=== PATIENT | female | born 1955 | race Caucasian/White ===

== ENCOUNTER 2019-06-10 10:33 | Outpatient (CLI) | payer BC, SELFPAY ==
--- NOTE | ~2019-06-10 | MM_ITS ---
EXAMINATION: MM screening harika BI w inge HISTORY: Screening mammogram TECHNIQUE: Craniocaudal and mediolateral oblique 3-D tomosynthesis images were obtained and synthetic 2-D images were generated. CAD analysis was submitted and interpreted. COMPARISON: 05/17/2018, 03/20/2017, 02/18/2016 bilateral digital screening mammogram examinations BREAST PARENCHYMAL COMPOSITION: The breasts are heterogeneously dense, which may obscure small masses ............... FINDINGS: There is no evidence of suspicious mass, calcification, or architectural distortion to sugg est malignancy in either breast. There has been no suspicious interval change. IMPRESSION: 1. No mammographic evidence of malignancy. 2. Recommend routine screening mammography in one year. BI-RADS Category 1: Negative Reviewed, dictated and finalized at location A.
== END 2019-06-10 10:34 | disposition home or self-care (01) ==
PROVIDERS: PCP Family Medicine; Visit Provider Family Medicine
DX: Z12.31 Encounter for screening mammogram for malignant neoplasm of breast (principal)
CPT/HCPCS: 77063; 77067

== ENCOUNTER → 2019-11-11 13:27 | Outpatient (CLI) | payer BC, SELFPAY ==
--- NOTE | ~2019-11-11 | XR_ITS ---
XR chest 2V INDICATION: Cough. TECHNIQUE: 2 view chest. FINDINGS: Comparison to 05/06/2018 There is mild bilateral interstitial prominence and peribronchial cuffing. There is no focal consoli dation, pleural effusion, or pneumothorax. The cardiomediastinal silhouette is normal.] IMPRESSION: 1. Findings most consistent with bronchiolitis versus an atypical or viral pneumonia. Reviewed, dictated and finalized at location A. IMPRESSION: 1. Findings most consistent with bronchiolitis versus an atypical or viral pne [facility].
== END ==
PROVIDERS: PCP Family Medicine; Visit Provider Physician Assistant
DX: R05 Cough (principal); R91.8 Other nonspecific abnormal finding of lung field
CPT/HCPCS: 71046

== ENCOUNTER → 2019-12-09 14:52 | Outpatient (CLI) | payer BC, SELFPAY ==
--- NOTE | ~2019-12-09 | XR_ITS ---
EXAMINATION: XR chest 2V 12/09/2019 16:08 INDICATION: Viral pneumonia. Cough and wheezing. PROCEDURE: 2 view chest COMPARISON: 11/11/2019 FINDINGS: The lungs are clear. The cardiomediastinal silhouette is within normal limits. There are no pleural effusions. There is no pneumothorax suspected. IMPRESSION: 1: NO ACUTE CARDIOPULMONARY DISEASE. Reviewed, dictated and finalized at location B.
== END ==
PROVIDERS: PCP Family Medicine; Visit Provider Physician Assistant
DX: J12.9 Viral pneumonia, unspecified (principal)
CPT/HCPCS: 71046

== ENCOUNTER → 2020-06-30 14:02 | Outpatient (CLI) | payer BC, SELFPAY ==
--- NOTE | ~2020-06-30 | MM_ITS ---
EXAMINATION: MM screening harika BI w inge HISTORY: Screening mammogram, family history of breast cancer in her mother and sister. TECHNIQUE: Craniocaudal and mediolateral oblique 3-D tomosynthesis images were obtained and synthetic 2-D images were generated. CAD analysis was submitted and interpreted. COMPARISON: 06/10/2019, 05/17/2018, 03/20/2017 BREAST PARENCHYMAL COMPOSITION: The breasts are heterogeneously dense, which may obscure small masses . FINDINGS: There is no evidence of suspicious mass, calcification, or architectural distortion to sugg est malignancy in either breast. There has been no suspicious interval change. IMPRESSION: 1. No mammographic evidence of malignancy. 2. Recommend routine screening mammography in one year. BI-RADS Category 1: Negative Reviewed, dictated and finalized at location A.
== END ==
PROVIDERS: PCP Family Medicine; Visit Provider Family Medicine
DX: Z12.31 Encounter for screening mammogram for malignant neoplasm of breast (principal)
CPT/HCPCS: 77063; 77067

== ENCOUNTER 2020-07-08 10:13 | Outpatient (CLI) | payer BC, SELFPAY ==
--- NOTE | 2020-07-11 14:02 | WPDPFTINT ---
PFT Procedure Performed PFT Procedure Performed Plethysmography (Lung Vol) Diffusing Cap (DLCO) Flow Vol Loop Spirometry w/o Bronchodil PFT Interpretation This PFT met all criteria for ATS standards and reproducibility FEV/FVC 78% FEV1 87% FVC 87% TLC 86% RV 73% RV/TLC 33 per DLCO 77% when adjusted for alveolar volume but not adjusted for hemoglobin Flow volume loops showed Impression: Other than a mildly decreased diffusion capacity this is a fairly normal pulmonary function test. Clinical correlation is advised.
== END 2020-07-08 10:14 | disposition home or self-care (01) ==
PROVIDERS: PCP Family Medicine; Visit Provider Physician Assistant
DX: R06.02 Shortness of breath (principal); R94.2 Abnormal results of pulmonary function studies
CPT/HCPCS: 94375; 94726; 94729

== ENCOUNTER → 2021-11-14 11:55 | Outpatient (CLI) | payer BC, SELFPAY ==
--- NOTE | ~2021-11-14 | DEXA_ITS ---
Bone Density Report Name: ISSA ZHONG Age: 66 Sex: Female Ethnicity: White Date of : 1955 Indication: osteopenia; parental hip fracture; prior fracture;postmenopausal Referring Provider: Mayuri, Niesha Lauren Study: Bone densitometry was performed. Exam Date: November 14, 2021 Accession number: [id number] Bone Density: Region BMD T-score Z-score Classification AP Spine (L1-L4) 0.847 -1.8 -0.1 Osteopenia Femoral Neck (Left) 0.705 -1.3 0.2 Osteopenia Total Hip (Left) 0.978 0.3 1.5 Normal Femoral Neck (Right) 0.794 -0.5 1.0 Normal Total Hip (Right) 1.023 0.7 1.8 Normal Total Hip Mean 1.001 0.5 1.7 Normal World Health Organization criteria for BMD impression classify patients as: Normal (T-score at or above -1.0), Osteopenia (T-score between -1.0 and -2.5), or Osteoporosis (T-score at or below -2.5). 10-year Fracture Risk(1): Major Osteoporotic Fracture 26% Hip Fracture 1.2% Reported Risk Factors: [place] (), Neck BMD=0.705, BMI=29.9, previous fracture, parental fracture (1) FRAX(R) Version 3.08. Fracture probability calculated for an untreated patient. Fracture probability may be lower if the patient has received treatment. Previous Exams: Region Exam Age BMD T-score BMD Change BMD Change Date g/cm2 vs Baseline vs Previous AP Spine(L1-L4) 11/14/2021 66 0.847 -1.8 -0.161 0.002 03/06/2019 63 0.844 -1.8 -0.164 -0.062 01/14/2014 58 0.906 -1.3 -0.102 -0.102 05/05/2003 47 1.008 -0.4 Total Hip(Left) 11/14/2021 66 0.978 0.3 -0.025 -0.049 03/06/2019 63 1.027 0.7 0.024 0.038* 01/14/2014 58 0.989 0.4 -0.014 -0.014 05/05/2003 47 1.003 0.5 Total Hip(Right) 11/14/2021 66 1.023 0.7 0.025 0.023 03/06/2019 63 1.000 0.5 0.002 0.014 01/14/2014 58 0.986 0.4 -0.012 -0.012 05/05/2003 47 0.998 0.5 *Denotes significance at 95% confidence level, LSC for AP Spine = 0.022 g/cm2, LSC for Total Hip = 0.027 g/cm2 Clinical Information Provided by Patient: Has had a low trauma fracture Parent has had a hip fracture Has used the following medications: Vitamin D, Calcium, MTV Patient maximum height was 66.0 Menopause Age: 50 No regular weight bearing exercise Drinks caffeinated beverages Onset of menses at age 15 Number of children 0
--- NOTE | ~2021-11-14 | MM_ITS ---
EXAMINATION: MM screening [facility] BI w inge HISTORY: Screening mammogram TECHNIQUE: Craniocaudal and mediolateral oblique 3-D tomosynthesis images were obtained and synthetic 2-D images were generated. CAD analysis was submitted and interpreted. COMPARISON: 06/30/2020, 06/10/2019, 05/17/2018 BREAST PARENCHYMAL COMPOSITION: The breasts are heterogeneously dense, which may obscure small masses . FINDINGS: There is no evidence of suspicious mass, calcification, or architectural distortion to sugg est malignancy in either breast. There has been no suspicious interval change. IMPRESSION: 1. No mammographic evidence of malignancy. 2. Recommend routine screening mammography in one year. BI-RADS Category 1: Negative Reviewed, dictated and finalized at location A.
--- NOTE | ~2021-11-14 | US_ITS ---
EXAMINATION: US carotid duplex BI DATE: 11/14/2021 12:31 INDICATION: Carotid stenosis TECHNIQUE: Grayscale, color Doppler, and pulsed Doppler images of the cervical carotid arteries were obtained. The degree of vessel stenosis is placed in one of the following categories: normal, <50%, 5 0-69%, >=70% but less than near-occlusion, near-occlusion, or total occlusion. Note that percent sten osis relative to normal distal artery lumen diameter is indirectly measured from velocity measurement s as described by Scott, et al. Radiology 2003; 229:340-346. Notes: Normal: Peak systolic velocity <125 centimeters/sec and no plaque <50%. Peak systolic velocity <125 ( EDV <40; ICA/CCA PSV ratio <2.0; used these factors only a tandem lesions or low cardiac output or co ntralateral disease) 50-69 %: PSV 125-230 (EDV 40-100; ratio 2-4) >= 70% but less than near occlusion: PSV greater than 230 (EDV > 100; ratio> 4.0) Near Occlusion: PSV that is variable; markedly narrowed lumen Occlusion: Absent flow on color/spectral Doppler and no lumen on treadwell scale. COMPARISON: None. FINDINGS: RIGHT: The right common carotid artery (CCA) peak systolic velocity (PSV) is 70 cm/s. The right internal car otid artery (ICA) PSV is 81 cm/s. The right ICA end-diastolic velocity (EDV) is 23 cm/s. The right IC A/CCA PSV ratio is 1.2. The external carotid artery (ECA) PSV is 85 cm/s. There is antegrade flow in the right vertebral artery. LEFT: The left CCA PSV is 78 cm/s. The left ICA PSV is 79 cm/s. The left ICA EDV is 27 cm/s. The left ICA/C CA PSV ratio is 1.0. The ECA PSV is 79 cm/s. There is antegrade flow in the left vertebral artery. IMPRESSION: 1. Less than 50% stenosis in the right internal carotid artery by sonographic criteria. 2. Less than 50% stenosis in the left internal carotid artery by sonographic criteria. Reviewed, dictated and finalized at location B. IMPRESSION: 1. Less than 50% stenosis in the right internal carotid artery by sonographic chris amezquita. 2. Less than 50% stenosis in the left internal carotid artery by sonographic luz kelly.
== END ==
PROVIDERS: PCP Family Medicine; Visit Provider Nurse Practitioner Family
DX: Z12.31 Encounter for screening mammogram for malignant neoplasm of breast (principal); Z13.820 Encounter for screening for osteoporosis; M85.88 Other specified disorders of bone density and structure, other site; M85.852 Other specified disorders of bone density and structure, left thigh; I65.23 Occlusion and stenosis of bilateral carotid arteries
CPT/HCPCS: 77063; 77067; 77080; 93880

== ENCOUNTER 2022-02-07 13:25 | Emergency (ER) | payer BC, SELFPAY ==
[2022-02-07 13:48] VITALS: BP 94/56; PULSE 92; RESP 16; TEMP 37.3; O2SAT 100
--- NOTE | 2022-02-07 14:37 | ED.URI ---
HPI - URI/Sore Throat General Chief Complaint: Upper Respiratory Infection Stated Complaint: Congestion/Cough/Sore Throat Time Seen by Provider: 02/07/22 14:40 Source: patient and RN notes reviewed Mode of arrival: ambulatory Limitations: no limitations History of Present Illness HPI Narrative: 66-year-old female presents with concern for cough, body aches, nasal congestion, sore throat that started 2 days ago. She has taken [id number] medications without relief of her symptoms. MD elicited complaint: cough and sore throat Related Data Home Medications Medication Instructions Recorded Confirmed vitamin B complex-vitamin B12 drp sublingual 05/25/20 05/25/20 1,200 mcg/mL sublingual drops sertraline 100 mg tablet 100 mg PO DAILY 11/15/21 tirzepatide 2.5 mg/0.5 mL 2.5 mg subcut WEEKLY 11/15/21 subcutaneous pen injector ([place]ineshro) Allergies Allergy/AdvReac Type Severity Reaction Status Date / Time No Known Allergies Allergy Mild Verified 11/15/21 14:02 Review of Systems Review of Systems: CONSTITUTIONAL: Reports malaise, chills, sweats EYES: Denies visual changes, redness, or discharge. ENT: Reports rhinorrhea, congestion, sore throat. Denies sinus pain, otalgia CARDIOVASCULAR: Denies chest pain, palpitations, or edema. RESPIRATORY: Reports cough. Denies dyspnea. GASTROINTESTINAL: Denies abdominal pain, nausea, vomiting, diarrhea SKIN: Denies rash or itching. MUSCULOSKELETAL: Reports myalgia. NEUROLOGIC: Reports headache. All systems reviewed & are unremarkable except as noted in HPI and below PMFSH Past Medical History Medical History (Updated 02/07/22 @ 14:48 by Jill Gallagher NP) Anxiety Depression HLD (hyperlipidemia) Normal cardiac stress test (~2015) Prediabetes Surgical History Surgical History (Updated 11/15/21 @ 14:07 by Yumiko Franks MA) H/O knee surgery (~1989) H/O neck surgery History of surgery on lower extremity Family History Family History (Updated 11/15/21 @ 14:09 by Yumiko Franks MA) Mother High cholesterol Heart disease Breast cancer Bladder cancer Father High cholesterol Heart disease Malignant neoplasm of prostate Sibling Acute myocardial infarction Social History Social History (Updated 11/15/21 @ 14:09 by ANIL Pelayo Smoking status: Never smoker Second hand tobacco smoke exposure: Yes Alcohol intake: current Alcohol use details: socially Substance use: never Substance use type: does not use Gender identity (if verbalized by the patient): Female Comments At time of signature, agree with nursing past medical, surgical, social and family history. There is no relevant family history pertinent to the presenting complaint Exam Narrative: GENERAL: Nontoxic-appearing and in no acute distress. HEAD: Normocephalic EYES: PERRLA, conjunctivae clear ENT: Nares clear, turbinates edematous and erythematous, clear discharge. Mucous membranes moist. TM pearly treadwell with dull light reflex bilaterally; no tragal tenderness. Oropharynx not erythematous without lesions. Tonsils not enlarged and without exudate, no drooling, no hoarseness, no trismus, uvula midline. NECK: Supple. No lymphadenopathy CHEST: Clear to auscultation, breath sounds equal. No wheezing, rhonchi, rales, or stridor. No respiratory distress, speaks in full sentences. Cough noted HEART: Regular rate and rhythm. No murmur heard. SKIN: Warm, dry, no rash. NEURO: Alert and oriented x3. PSYCH: Normal mood and affect Course Course Emergency Course: Patient is aware of diagnosis, understands and agrees to treatment plan. Anticipatory guidance given. Patient agrees to follow-up as directed and is aware of reasons to seek care at the emergency department. Portions of this record may have been created with voice recognition software Level of Care: Express Care Visit Vital Signs Vital signs: Vital Signs Temperature 99.2 F 02/07/22 13:4
== END 2022-02-07 15:03 | disposition home or self-care (01) ==
PROVIDERS: Emergency Provider Nurse Practitioner; PCP Nurse Practitioner Family
DX: U07.1 COVID-19 (principal); F32.A Depression, unspecified; F41.9 Anxiety disorder, unspecified; E78.5 Hyperlipidemia, unspecified
CPT/HCPCS: 87426; 99213; C9803; G0463

== ENCOUNTER → 2023-02-27 14:51 | Outpatient (CLI) | payer MEDICARE, OTHER, SELFPAY ==
--- NOTE | ~2023-02-27 | MM_ITS ---
EXAMINATION: MM screening harika BI w inge HISTORY: Screening mammogram, family history of breast cancer in her mother and sister. TECHNIQUE: Craniocaudal and mediolateral oblique 3-D tomosynthesis images were obtained and synthetic 2-D images were generated. CAD analysis was submitted and interpreted. COMPARISON: 11/14/2021, 07/08/2020, 06/10/2019 BREAST PARENCHYMAL COMPOSITION: The breasts are heterogeneously dense, which may obscure small masses . FINDINGS: No suspicious mass, calcification, or architectural distortion are identified in either myah ast to suggest malignancy. There has been no suspicious interval change. IMPRESSION: 1. No mammographic evidence of malignancy. 2. Recommend routine screening mammography in one year. BI-RADS Category 1: Negative Reviewed, dictated and finalized at location A. CIATE FINANCIAL REPRESENTATIVE
== END ==
PROVIDERS: PCP Nurse Practitioner Family; Visit Provider Nurse Practitioner Family
DX: Z12.31 Encounter for screening mammogram for malignant neoplasm of breast (principal)
CPT/HCPCS: 77063; 77067

== ENCOUNTER 2023-04-09 11:36 | Emergency (ER) | payer MEDICARE, OTHER, SELFPAY ==
[2023-04-09 11:42] VITALS: BP 155/82; PULSE 84; RESP 20; TEMP 36.1; O2SAT 97
--- NOTE | 2023-04-09 11:57 | ED.URI ---
HPI - URI/Sore Throat General Chief Complaint: Upper Respiratory Infection Stated Complaint: Shortness of Breath/Cough Source: patient Mode of arrival: ambulatory Limitations: no limitations History of Present Illness HPI Narrative: 67 yo female presented for complaint of cough and nasal congestion for about 10 days. Endorses chest feels tight with coughing. She endorses yearly bronchitis and states symptoms are similar. She has used her albuterol inhaler, nebulizers, incentive spirometer, and lkif-bzu-[id number] medications for symptoms. Denies shortness of breath, wheezing, chest pain, palpitations, nausea, vomiting, fevers or chills. Pt also states she struck her right eye on a table several months ago, has a healing scar, but has noticed white flashes at times to the outer aspect of the visual field. Endorses occasional blurred vision. Denies photosensitivity, eye pain, headache or dizziness. Related Data Home Medications Medication Instructions Recorded Confirmed vitamin B complex-vitamin B12 drp sublingual 05/25/20 05/25/20 1,200 mcg/mL sublingual drops tirzepatide 2.5 mg/0.5 mL 2.5 mg subcut WEEKLY 11/15/21 subcutaneous pen injector (Toluundineshro) Allergies Allergy/AdvReac Type Severity Reaction Status Date / Time No Known Allergies Allergy Mild Verified 02/28/22 12:04 Review of Systems Review of Systems: CONSTITUTIONAL: Denies body aches, fever, chills, or sweats. EYES: reports visual changes, Denies redness, or discharge. ENT:reports rhinorrhea, congestion, denies sore throat, or otalgia. CARDIOVASCULAR: Denies chest pain, palpitations, or edema. RESPIRATORY: Reports cough, sob, wheezing. SKIN: Denies rash, itching, or wounds. MUSCULOSKELETAL: Denies back pain, joint pain, or myalgia. NEUROLOGIC: Denies headache, numbness, tingling, or weakness. All systems reviewed & are unremarkable except as noted in HPI and below FOR[facility]LY [facility], [facility] Past Medical History Medical History Anxiety Depression HLD (hyperlipidemia) Normal cardiac stress test (~2015) Prediabetes Surgical History Surgical History H/O knee surgery (~1989) H/O neck surgery History of surgery on lower extremity Family History Family History Mother High cholesterol Heart disease Breast cancer Bladder cancer Father High cholesterol Heart disease Malignant neoplasm of prostate Sibling Acute myocardial infarction Other Cerebrovascular accident Diabetes mellitus Family history of alcoholism Family history of arthritis Family history of cardiovascular disease Family history of mental disorder Social History Social History Smoking status: Never smoker Second hand tobacco smoke exposure: Yes Alcohol intake: current Alcohol use details: socially Substance use: never Substance use type: does not use Living arrangements: with family Occupation/Education: retired Gender identity (if verbalized by the patient): Female Comments At time of signature, I have reviewed and agree with nursing past medical, surgical, social and family history unless otherwise noted. Please see nursing chart for further information. There is no relevant family history pertinent to the presenting complaint Exam Narrative: GENERAL: Well-appearing, in no acute distress. EYES: EOMI. PERRLA, No redness or drainage. Conjunctivae normal. ENT: Mucous membranes pink and moist. No rhinorrhea. TMs normal bilaterally. Throat normal. Uvula midline. NECK: Normal AROM. Supple. CHEST: No respiratory distress. Lungs clear to all diaz. HEART: Regular rate and rhythm. No murmur appreciated. SKIN: Warm, dry, no rash. Capillary refill normal. Normal skin turgor. NEURO: Alert and oriented x3. Gait
== END 2023-04-09 12:15 | disposition home or self-care (01) ==
PROVIDERS: Emergency Provider Nurse Practitioner Family
DX: J40 Bronchitis, not specified as acute or chronic (principal); H53.9 Unspecified visual disturbance; E78.5 Hyperlipidemia, unspecified; R73.03 Prediabetes
CPT/HCPCS: 99213; G0463

== ENCOUNTER 2023-11-28 11:27 | Outpatient (CLI) | payer MEDICARE, OTHER, SELFPAY ==
[2023-11-28 18:37] LABS: Basophils Percent Auto 0.7 % (0.2-1.2); Eosinophils Absolute Auto 0.1 K/mm3 (0-0.3); Eosinophils Percent Auto 0.9 % (0-4.4); Hematocrit 41.3 % (37.0-47.0); Hemoglobin 12.9 g/dL (12.0-15.0); Immature Granulocyte Absolute 0.02 K/mm3 (0.00-0.031); Immature Granulocyte Percent A 0.4 % (0-0.5); Lymphocytes Absolute Auto 1.68 K/mm3 (0.9-3.2); Lymphocytes Percent Auto 31.1 % (18.3-44.2); Mean Corpuscular HGB Conc 31.2 g/dl (32-36); Mean Corpuscular Hemoglobin 31.9 pg (26-34); Mean Corpuscular Volume 102.2 fl (80-100); Mean Platelet Volume 9.9 fl (7.4-10.4); Monocytes Absolute Auto 0.4 K/mm3 (0.1-0.6); Monocytes Percent Auto 7.2 % (2.6-8.5); Neutrophils Absolute Auto 3.2 K/mm3 (1.3-6.7); Neutrophils Percent Auto 59.7 % (45.5-73.1); Platelet Count Result 312 k/mm3 (150-375); Red Blood Count 4.04 M/mm3 (4.2-5.4); White Blood Count 5.4 K/mm3 (4.5-10.0)
[2023-11-28 20:09] LABS: Alanine Aminotransferase 27 U/L (6-35); Albumin Level 4.9 g/dL (3.5-5.1); Alkaline Phosphatase 91 U/L (38-126); Anion Gap 8 mmol/L (4-12); Aspartate Amino Transferase 68 U/L (14-36); Bilirubin,Total 0.6 mg/dL (0.2-1.3); Blood Urea Nitrogen 13 mg/dL (7-17); Calcium 9.4 mg/dL (8.4-10.2); Carbon Dioxide 27 mmol/L (22-30); Chloride 102 mmol/L (98-107); Cholesterol 136 mg/dL (0-200); Estimated Glomerular Filt Rate > 60; Glucose 96 mg/dL (65-110); HDL Direct 49 mg/dL; Potassium 4.8 mmol/L (3.4-5.0); Sodium 137 mmol/L (137-145); Triglycerides 121 mg/dL (<150)
[2023-11-28 20:19] LABS: LDL Cholesterol Direct 47 mg/dL
[2023-11-28 21:00] LABS: Hemoglobin A1C 5.2 % (<5.7)
== END 2023-11-28 11:28 | disposition home or self-care (01) ==
PROVIDERS: PCP Nurse Practitioner Adult Health; Visit Provider Nurse Practitioner Adult Health
DX: R73.03 Prediabetes (principal); E78.5 Hyperlipidemia, unspecified; Z51.81 Encounter for therapeutic drug level monitoring
CPT/HCPCS: 36415; 80053; 80061; 82607; 83036; 84443; 85025

== ENCOUNTER 2024-02-29 13:24 | Outpatient (CLI) | payer MEDICARE, SELFPAY ==
--- NOTE | ~2024-02-29 | DEXA_ITS ---
Bone Density Report Name: ISSA ZHONG Age: 68 Sex: Female Ethnicity: White Date of : 1955 Indication: postmenopausal; screening for osteoporosis; parental hip fracture; asthma or emphysema; Referring Provider: JOE SAWANT Study: Bone densitometry was performed. Exam Date: February 29, 2024 Accession number: [id number] Bone Density: Region BMD T-score Z-score Classification AP Spine(L1-L4) 0.883 -1.5 0.4 Osteopenia Femoral Neck (Left) 0.735 -1.0 0.6 Normal Total Hip (Left) 0.961 0.2 1.5 Normal Femoral Neck (Right) 0.758 -0.8 0.8 Normal Total Hip (Right) 0.980 0.3 1.6 Normal Femoral Neck Mean 0.747 -0.9 0.7 Normal Total Hip Mean 0.971 0.2 1.5 Normal World Health Organization criteria for BMD impression classify patients as: Normal (T-score at or above -1.0), Osteopenia (T-score between -1.0 and -2.5), or Osteoporosis (T-score at or below -2.5). Clinical Information Provided by Patient: Parent has had a hip fracture Has used the following medications: HRT (i.e. estrogen/hormone therapy), Vitamin D, Calcium Has the following medical conditions: Asthma or Emphysema Patient maximum height was 68 No regular weight bearing exercise Drinks caffeinated beverages Onset of menses at age 15 Number of children 0 Impression: The patient has low bone mass, based on the Total Spine T-score. The patient has risk factors, including: parental hip fracture. Discussion: BONE DENSITY IS LOW AT ONE OR MORE SKELETAL SITES. This patient's lowest T-score is low at one or more skeletal sites. It meets the World Health Organization's (WHO) criteria for ?low bone mass? (T-score between -1.0 and -2.5). The patient's 10-year risk of fracture as calculated by FRAX is less than the threshold where pharmacological therapy is recommended by the National Osteoporosis Foundation (NOF). However, all treatment decisions require clinical judgment and consideration of individual patient factors, including patient preferences, comorbidities, previous drug use, risk factors not captured in the FRAX model (e.g., frailty, falls, vitamin D deficiency, increased bone turnover, interval significant decline in bone density) and possible under or overestimation of fracture risk by FRAX. The patient should follow a healthful lifestyle (good nutrition with adequate calcium and vitamin D, and appropriate weight-bearing exercise). Follow-Up: Consider repeating this study in 2 to 3 years to reassess this patient's status, or sooner if there is some new clinical indication. Reported by: GABRIELLE on 02/29/2024 1:44:00 PM. Reviewed, dictated and finalized at location A. RODO
== END 2024-02-29 13:25 | disposition home or self-care (01) ==
LOC: CHSIMG 13:27
PROVIDERS: PCP Nurse Practitioner Adult Health; Visit Provider Nurse Practitioner Adult Health
DX: Z78.0 Asymptomatic menopausal state (principal); M85.88 Other specified disorders of bone density and structure, other site
CPT/HCPCS: 77080

== ENCOUNTER 2024-04-24 11:54 | Outpatient (CLI) | payer MEDICARE, SELFPAY ==
--- OUTSIDE RECORDS SUMMARY | 2024-04-24 13:23 | XMS_ITS | Clinical Summary ---
Author Organization [facility] [employer] Address [address] [place] [address] Care Team Providers Care Analyzer Sales Name Role Phone Unavailable Primary Care Provider Unavailabl e Source Comments [facility],non-owned Affiliates and Associated Physician Practices is amultiple site organization consisting of ambulatory clinics and hospital sitesin [place], [place], [place] and [place]. This disclosure is being madepursuant to the Care Everywhere program and may not contain all information available regarding this patient. Last updated 17.[facility] [employer] Allergies No known active allergies Medications * Be aware that medications may not be up to date on this document. Alwaysverify current medications with the patient. Medication Sig Dispensed Refills Start Date End Date Status meloxicam (MOBIC) 15 MG tablet Take 15 mg by mouth once daily Active sertraline (ZOLOFT) 100 MG tablet Take 100 mg by mouth once daily Active atorvastatin (LIPITOR) 10 MG tablet Take 10 mg by mouth at bedtime Active pantoprazole EC (PROTONIX) 40 MG tablet Take 40 mg by mouth once daily Active azithromycin (ZITHROMAX) 250 MG tablet Take 2 tabs today, then 1 tab daily for next 4 days 6 tablet 03/11/2019 Active albuterol HFA (PROVENTIL;VENTOLIN; PROAIR) 108 (90 Base) MCG/ACT inhaler Inhale 2 puffs by mouth every 4 hours as needed for Wheezing 1 Inhaler 03/11/2019 Active fluticasone propionate (FLONASE) 50 MCG/ACT nasal spray [place] 2 sprays into each nostril once daily 16 g 03/11/2019 Active methylPREDNISolone (MEDROL DOSEPAK) 4 MG tablet Take by mouth as directed 1 Each 03/11/2019 Active Social History Tobacco Use Types Packs/Day Years Used Date Smoking Tobacco: Former Cigarettes Q uit: 1998 Smokeless Tobacco: Never Sex and Gender Information Value Date Recorded Sex Assigned at Not on file Gender Identity Not on file Sexual Orientation Not on file Last Filed Vital Signs Vital Sign Reading Time Taken Comments Blood Pressure 116/78 03/11/2019 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 Pulse 102 03/11/2019 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 Temperature 36.9 C (98.4 F) 03/11/2019 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 Respiratory Rate 17 03/11/2019 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 Oxygen Saturation 97% 03/11/2019 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 Inhaled Oxygen Concentration - - Weight 86.6 kg (191 lb) 03/11/2019 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 Height 167.6 cm (5' 6 ) 03/11/2019 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 Body Mass Index 30.83 03/11/2019 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 Plan of Treatment Health Maintenance Due Date Last Done Comments BONE DENSITY TESTING 1955 COLOGUARD (AGES 45-75) - COL ON CA SCREENING 1955 COLON MONITORING 1955 COLONOSCOPY - COLON CA SCREENING 1955 CT COLONOGRAPHY - COLON CA SCREENING 1955 Colorectal Cancer Screening 1955 FIT - COLON CA SCREENING 1955 FLEX SIG - COLON CA SCREENING 1955 MAMMOGRAM 1955 HEPATITIS C SCREENING 11/11/1975 DTAP/TDAP/TD VACCINES (1 - Tdap) 1976 PNEUMOCOCCAL VACCINE 50+ (1 of 1 - PCV) 11/16/2007 ZOSTER VACCINE (1 of 2) 11/16/2007 SCREENING FOR DIABETES 03/11/2019 COVID-19 VACCINE ( - 2023-2 5 season) 2023 INFLUENZA VACCINE (#1) 2023 DEPRESSION SCREENING 02/20/2024 Respiratory Syncytial Virus (RSV) Vaccine Pt: or over 60 yrs (1 - 1-dose 75+ series) 2032 HEPATITIS B VACCINE Aged Out No longe r eligible based on patient's age to complete this topic HIB VACCINE Aged Out No longer eligi ble based on patient's age to complete this topic HPV VACCINE Aged Out No longer eligi ble based on patient's age to complete this topic MENINGOCOCCAL (Group B) VACCINE Aged Out No longer eligible based on patient's age to complete this topic MENINGOCOCCAL VACCINE Aged Out No lisa timo eligible based on patient's age to complete this topic
--- OUTSIDE RECORDS SUMMARY | 2024-04-24 13:23 | XMS_ITS | Data Portability ---
Author Organization [place] - [facility], Main Office Address [address] [place] [address] Care Team Providers Care Tool Honing Machine Set Up Operator Name Role Phone NIESHA MESSINA Primary Care Provider HOPNIESHA GIRALDO Referring Provider [phone] Assessment Encounter Date Assessment Date Assessment LastModified by Organization Details LastModified Time 09/05/2022 09/05/2022 The patient gave verbal consent using TelePhonic services and the consent is documented in the medical record prior to using the service. The patient has been informed of what a TeleMedicine visit is. Patient is located at home. Provider is located at office. Names and roles of persons in addition to the patient and provider participating in telemedicine services include none. The patient had a 16 minute TeleMedicine consultation via phone call to discuss the following: Cscope- 2015- normal- repeat 2025 Mammogram- done, get records DEXA- 10/2021- osteopenia DEANGELO Butcher Call office if worse, ER if life-threatening illness RTC 4 months She voiced understanding of plan and agrees Not available 09/05/2022 11:10:12 2022 2022 Cscope- 2015- normal- repeat 2025 Mammogram-ordered DEXA- 10/2021- osteopenia DEANGELO Butcher Call office if worse, ER if life-threatening illness RTC 4 months She voiced understanding of plan and agrees [email or web address] Not available 2022 15:53:30 12/11/2022 12/11/2022 Impression: Patient has severe patellofemoral pain in both knees. Her x-rays are fairly unremarkable only minimal subtle degenerative changes patellofemoral and medial compartment suggested. It is possible she may have more severe patellofemoral degenerative changes with high-grade cartilage loss subchondral bone edema changes in the patellofemoral joint despite having fairly normal x-rays. The MRI I scan is a more sensitive test for picking early patellofemoral arthritis. However, I would recommend it she try physical therapy for anterior knee pain protocol focusing on quadriceps and hamstring stretching hip external rotation abduction core strength. She should work on both legs the same way. We will specifically avoid any quadriceps strengthening. I have discussed her the option of perhaps trying the meloxicam again and I am going to prescribe 15 mg daily. She will watch for side effects and bothers her stomach at all she will stop. She was given instructions he describing possible side effects of anti-inflammatory medications. I will see her back in 6 weeks to assess her progress. If she is not significantly improved I would recommend obtaining an MRI scan of her right knee to delineate pathology causing her chronic pain more accurately. 30 minutes were spent total care this patient more than half the time spent in [id number] care. Not available 12/11/2022 16:35:10 01/22/2023 01/22/2023 HPI: Patient returns. Right knee is doing much better. She did go to physical therapy. She has been taking meloxicam 15 mg daily. Point she is having minimal symptoms in the knee. She has finished up therapy and continues with her home exercise program. This point she states having minimal to no symptoms. Physical exam: 67-year-old female very alert pleasant. She is walking very well today. She has no limp. No effusion in the right knee. She still has dglh-ql-[id number] pain with patellofemoral grind and inhibition testing. Mild crepitus of the patellofemoral joint with range of motion. No medial lateral joint line tenderness. 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 Her symptoms well improved to the point where things are very tolerable for her. She asked about staying on the meloxicam and I recommended she take another month of it and then stop it to see where her symptoms are. Her arthritis is in the early stages and this may have just been a flare up and she may not need to be on meloxicam on a daily basis depending on her symptoms. We will prescribe her another month and she will stop that point. If she feels she needs to continue with that due to the symptoms we will continue to provide for her. We will get blood work at 3 months and every 6 months after that. We also discussed that if her symptoms become unbearable we can try cortisone injection in the knee. If she starts to have more medial lateral joint line tenderness then I would recommend MRI scan before proceeding with an injection we discussed this as well. We will see her back as needed. [email or web address] Not available 01/22/2023 14:54:15 03/07/2023 03/07/2023 Cscope- 2016- normal- repeat 2025 Mammogram-02/2023 DEXA- 10/2021- osteopenia [employer]- [place] Call office if worse, ER if life-threatening illness She plans transfer to PCP in [facility] She voiced understanding of plan and agrees [email or web address] Not available 03/07/2023 14:23:53 Plan of Treatment Reminders Order Date Submit Date Provider Last Modified By Organization Details Last Modified Time Details Appointments None recorded. Lab glycohemogl obin, total, blood 2022 023 [facility] (Lab), [address] [place], [address], 19:20:31 CMP, serum or plasma 2022 023 [facility] (Lab), [address] [place], [address], 3 19:50:12 CBC w/ auto diff 2022 023 [facility] (Lab), [address] [place], [address], 3 18:43:58 lipid panel, serum 2022 023 [facility] (Lab), [address] [place], [address], 3 19:50:17 TSH, serum or plasma 2022 023 [facility] (Lab), [address] [place], [address], 3 20:07:26 vitamin D, 25-hydroxy, total, serum [address] (Lab), [address] [place], [address], 3 11:42:40 vitamin B12 + folate, serum or blood [address] (Lab), [address] [place], [address], 3 11:42:40 Referral orthopedic surgeon referral - angelica shawsavannah in right knee 2022 023 KAYLEEN Ann MD, [address], [facility], [place], [address], 3 16:36:07 Procedures None recorded. Surgeries None recorded. Imaging XR, knee 2022 023 [facility], [address] [facility] [address], [place], [address], 3 17:10:31 MAMMO, screening, bilateral 2022 023 [email or web address] [facility], [address], [address] [address], [place], [address], 4 12:16:23 Medication Orders atorvastati n 40 mg tablet 2023 024 [facility] #09554, [address], [place], [place], [id number], 4 14:20:09 albuterol sulfate HFA 90 mcg/actuati on aerosol inhaler 2023 024 [facility] #57011, [address], [place], [place], [id number], 4 14:20:11 famotidine 40 mg tablet 2023 024 [facility] #02165, [address], [place], [place], [id number], 4 14:20:16 montelukast 10 mg tablet 2023 024 [facility] #73625, [address], [place], [place], [id number], 4 14:20:22 pantoprazol e 40 mg tablet,heather yed release 2023 024 [facility] #00717, [address], [place], [place], [id number], 4 14:20:21 sertraline 100 mg tablet 2023 024 [facility] #10862, [address], [place], [place], [id number], 4 14:20:21 meloxicam 15 mg tablet [address] [facility]79346, [address], [place], [place], [id number], 3 07:27:40 meloxicam 15 mg tablet [address] [facility] #10972, [address], [place], [place], [id number], 3 17:10:31 atorvastati n 20 mg tablet 2022 023 [email or web address] [facility] #08614, [address], [place], [place], [id number], 3 15:41:31 famotidine 40 mg tablet 2022 023 [facility] #36848, [address], [place], [place], [id number], 3 11:06:10 montelukast 10 mg tablet 2022 023 [facility] #84274, [address], [place], [place], [id number], 3 11:06:12 sertraline 100 mg tablet 2022 023 [facility] #17461, [address], [place], [place], [id number], 3 11:06:11 Patient TargetsNo targets recorded. Patient Instructions Encounter Date Encounter Id Patient Instructions Last Modified By Organization Details Last Modified Time 09/05/2022 [id number] Due to the COVID-19 (Novel Coronavirus) pandemic, it is within this context (and with the understanding that this method of patient encounter is in the patient s best interest as well as the health and safety of other patients and the public) that [facility] is being provided for this patient encounter rather than a uulj-yx-[id number] visit. This patient encounter is appropriate at this time. This patient has been advised of the potential risks and limitations of this mode of treatment (including, but not limited to, the absence of in-person examination) and has agreed to be treated in a remote fashion despite these risks. Any and all of the patient s /patient s family s questions on this issue have been answered, and I have made no promises or guarantees to the patient. The patient has also been advised to contact this office for worsening conditions or problems, and seek emergency medical treatment and/or call 911 if the patient deems either necessary. HPI and/or vitals, if listed, were provided by the patient. [email or web address] Not available 09/05/2022 11:06:24 Reason for Referral Orthopedic Surgeon Referral for Pain of right knee joint wants shawalog in right knee Referring Physician: Niesha Messina, Internal Medicine, Encounter Date: 2022 Results Created Date Observation Date Name Description Value Unit Range Abnormal Flag Note LastModifiedBy Organization Detail LastModifiedTime 11/16/1911/15/2022 CBC/C OMPLE TE BLD COUNT W/DIF F white blood cells 5.4 x10'3 /uL 4.2-10 .8 Not Available [facility] (Lab) [address] [place], [address], 2022 18:43:58 11/16/19 23 2022 CBC/C OMPLE TE BLD COUNT W/DIF F red blood cells 3.84 x10'6 /uL 3.80-5 .20 Not Available [facility] (Lab) [address] [place], [address], 2022 18:43:58 11/16/19 23 2022 CBC/C OMPLE TE BLD COUNT W/DIF F hemoglobin 12.5 g/dL 12.0-1 5.6 Not Available [facility] (Lab) [address] [place], [address], 2022 18:43:58 11/16/1911/15/2022 CBC/C OMPLE TE BLD COUNT W/DIF F hematocrit 38.1 % 35.7-4 5.7 Not Available [facility] (Lab) [address] [place], [address], 2022 18:43:58 11/16/1911/15/2022 CBC/C OMPLE TE BLD COUNT W/DIF F mean red cell volume 99.2 fL 82.0-9 9.0 high Not Available [facility] (Lab) [address] [place], [address], 2022 18:43:58 11/16/19 23 2022 CBC/C OMPLE TE BLD COUNT W/DIF F mean red cell hemoglobin 32.6 pg 27.0-3 3.0 Not Available [facility] (Lab) [address] [place], [address], 2022 18:43:58 11/16/1911/15/2022 CBC/C OMPLE TE BLD COUNT W/DIF F mean RBC HGB concentratio n 32.8 g/dL 31.0-3 6.0 Not Available [facility] (Lab) [address] [place], [address], 2022 18:43:58 11/16/19 23 2022 CBC/C OMPLE TE BLD COUNT W/DIF F red cell distribution width 12.2 % 11.8-1 5.5 Not Available [facility] (Lab) [address] [place], [address], 2022 18:43:58 11/16/1911/15/2022 CBC/C OMPLE TE BLD COUNT W/DIF F platelets 287 x10'3 /uL 150-40 0 Not Available [facility] (Lab) [address] [place], [address], 2022 18:43:58 11/16/1911/15/2022 CBC/C OMPLE TE BLD COUNT W/DIF F mean platelet volume 10.2 fL 9.0-12 .4 Not Available [facility] (Lab) [address] [place], [address], 2022 18:43:58 11/16/19 23 2022 CBC/C OMPLE TE BLD COUNT W/DIF F neutrophils 58.8 % 39.0-7 2.0 Not Available [facility] (Lab) [address] [place], [address], 2022 18:43:58 11/16/1911/15/2022 CBC/C OMPLE TE BLD COUNT W/DIF F lymphocytes 32.8 % 16.0-4 7.0 Not Available [facility] (Lab) [address] [place], [address], 2022 18:43:58 11/16/1911/15/2022 CBC/C OMPLE TE BLD COUNT W/DIF F monocytes 6.9 % 5.0-12 .0 Not Available [facility] (Lab) [address] [place], [address], 2022 18:43:58 11/16/1911/15/2022 CBC/C OMPLE TE BLD COUNT W/DIF F eosinophils 0.6 % 1.0-7. 0 low Not Available [facility] (Lab) [address] [place], [address], 2022 18:43:58 11/16/1911/15/2022 CBC/C OMPLE TE BLD COUNT W/DIF F basophils 0.7 % 0.0-2. 0 Not Available [facility] (Lab) [address] [place], [address], 2022 18:43:58 11/16/1911/15/2022 CBC/C OMPLE TE BLD COUNT W/DIF F immature granulocytes 0.2 % 0.00-0 .50 Not Available [facility] (Lab) [address] [place], [address], 2022 18:43:58 11/16/1911/15/2022 CBC/C OMPLE TE BLD COUNT W/DIF F neutrophils, absolute count 3.16 x10'3 /uL 1.5-8. 0 Not Available [facility] (Lab) [address] [place], [address], 2022 18:43:58 11/16/1911/15/2022 CBC/C OMPLE TE BLD COUNT W/DIF F lymphocytes, absolute count 1.76 x10'3 /uL 1.07-3 .43 Not Available [facility] (Lab) [address] [place], [address], 2022 18:43:58 11/16/1911/15/2022 CBC/C OMPLE TE BLD COUNT W/DIF F monocytes, absolute count 0.37 x10'3 /uL 0.29-0 .99 Not Available [facility] (Lab) [address] [place], [address], 2022 18:43:58 11/16/1911/15/2022 CBC/C OMPLE TE BLD COUNT W/DIF F eosinophils, absolute count 0.03 x10'3 /uL 0.02-0 .53 Not Available [facility] (Lab) [address] [place], [address], 2022 18:43:58 11/16/1911/15/2022 CBC/C OMPLE TE BLD COUNT W/DIF F basophils, absolute count 0.04 x10'3 /uL 0.01-0 .08 Not Available [facility] (Lab) [address] [place], [address], 2022 18:43:58 11/16/1911/15/2022 CBC/C OMPLE TE BLD COUNT W/DIF F immature granulocytes ,absolute 0.01 x10'3 /uL 0.00-0 .05 Not Available [facility] (Lab) [address] [place], [address], 2022 18:43:58 11/16/1911/15/2022 CBC/C OMPLE TE BLD COUNT W/DIF F nucleated red blood cells 0.0 % -0 Not Available [facility] (Lab) [address] [place], [address], 2022 18:43:58 11/16/19 23 2022 CBC/C OMPLE TE BLD COUNT W/DIF F NRBC# 0.00 x10'3 /uL Not Available [facility] (Lab) [address] [place], [address], 2022 18:43:58 11/16/1911/15/2022 HEMOG LOBIN A1C HA1C 5.6 % 4.0-6. 0 Diabe sanjuanita Scree shaina Crite candy: <5.7% Consi stent with absen ce of diabe sanjuanita 5.7-6 .4% Consi stent with incre ased risk for diabe sanjuanita (pred iabet es) >OR=6 .5% Consi stent with diabe sanjuanita REFER ENCE: Diabe sanjuanita Care 2016, 39(Antunez ppl.1 ):s13 -s22 Not Available [facility] (Lab) [address] [place], [address], 2022 19:20:31 11/16/1911/15/2022 VITAM IN D 25-HY DROXY [id number] 70.1 NG/mL 30-100 Vitam in D Statu s: Defic ient: <20 ng/mL Insuf ficie nt: 20-29 ng/mL Suffi cient : 30-10 0 ng/mL Not Available [facility] (Lab) [address] [place], [address], 2022 19:48:16 11/16/1911/15/2022 COMPR EHENS HEATHER METAB OLIC PANEL sodium 136 mmol/ L 137-14 5 low Not Available [facility] (Lab) [address] [place], [address], 2022 19:50:12 11/16/19 23 2022 COMPR EHENS HEATHER METAB OLIC PANEL potassium 4.6 mmol/ L 3.5-5. 1 Not Available [facility] (Lab) [address] [place], [address], 2022 19:50:12 11/16/19 23 2022 COMPR EHENS HEATHER METAB OLIC PANEL chloride 100 mmol/ L 98-107 Not Available [facility] (Lab) [address] [place], [address], 2022 19:50:12 11/16/19 23 2022 COMPR EHENS HEATHER METAB OLIC PANEL carbon dioxide 27 mmol/ L 22-30 Not Available [facility] (Lab) [address] [place], [address], 2022 19:50:12 11/16/19 23 2022 COMPR EHENS HEATHER METAB OLIC PANEL anion gap 13.6 mmol/ L 14-22 low Not Available [facility] (Lab) [address] [place], [address], 2022 19:50:12 11/16/19 23 2022 COMPR EHENS HEATHER METAB OLIC PANEL glucose 99 mg/dL 70-99 Not Available [facility] (Lab) [address] [place], [address], 2022 19:50:12 11/16/19 23 2022 COMPR EHENS HEATHER METAB OLIC PANEL BUN 19 mg/dL 8-19 Not Available [facility] (Lab) [address] [place], [address], 2022 19:50:12 11/16/19 23 2022 COMPR EHENS HEATHER METAB OLIC PANEL creatinine 0.79 mg/dL 0.66-1 .25 Not Available [facility] (Lab) [address] [place], [address], 2022 19:50:12 11/16/1911/15/2022 COMPR EHENS HEATHER METAB OLIC PANEL GFR >60 Refer ence Range : Patterson ge GFR Healt hy Adult : >60 mL/mi n/1.7 3 m2 Chron ic Kidne y Disea se: 15-60 mL/mi n/1.7 3 m2 Kidne y Failu re: <15/m L/min /1.73 m2 www.n iddk. nih.g ov The MDRD study equat ion has not been valid ated in child severo <18 years of age; pregn ant women ; the elder ly >85 years of age; or in some racia l or ethni c subgr oups, such as Hispa nics. Outsi de the valid ated ashley eters , estim ated GFR is less accur ate, requi ring clini rigo judgm ent on a case- by-ca se basis . Clini rigo inter preta tion for other races and ages must be made by the clini michael. The MDRD study equat ion has not been valid ated for the evalu ation of serum creat inine relat ed to nutri daniel l statu s or medic ation usage . For perso ns <18 years of age, a pedia tric GFR calcu lator is avail able on the [facility] websi te: https ://delmy bennett.cuba nunez/pr ofess ional s/kdo qi/gf r_cal culat or Not Available [facility] (Lab) [address] [place], [address], 2022 19:50:12 11/16/1911/15/2022 COMPR EHENS HEATHER METAB OLIC PANEL alkaline phosphatase 81 U/L 38-126 Not Available [facility] (Lab) [address] [place], [address], 2022 19:50:12 11/16/1911/15/2022 COMPR EHENS HEATHER METAB OLIC PANEL alanine aminotransfe rase 27 U/L 0-35 Not Available [facility] (Lab) [address] [place], [address], 2022 19:50:12 11/16/19 23 2022 COMPR EHENS HEATHER METAB OLIC PANEL aspartate aminotransfe rase 33 U/L 15-37 Not Available [facility] (Lab) [address] [place], [address], 2022 19:50:12 11/16/19 23 2022 COMPR EHENS HEATHER METAB OLIC PANEL bilirubin, total 0.60 mg/dL 0.20-1 .30 Not Available [facility] (Lab) [address] [place], [address], 2022 19:50:12 11/16/19 23 2022 COMPR EHENS HEATHER METAB OLIC PANEL calcium 10.1 mg/dL 8.4-10 .2 Not Available [facility] (Lab) [address] [place], [address], 2022 19:50:12 11/16/19 23 2022 COMPR EHENS HEATHER METAB OLIC PANEL total protein 7.5 g/dL 6.3-8. 2 Not Available [facility] (Lab) [address] [place], [address], 2022 19:50:12 11/16/1911/15/2022 COMPR EHENS HEATHER METAB OLIC PANEL albumin 4.9 g/dL 3.0-4. 4 high Not Available [facility] (Lab) [address] [place], [address], 2022 19:50:12 11/16/19 23 2022 COMPR EHENS HEATHER METAB OLIC PANEL globulin 2.6 g/dL 2.6-4. 2 Not Available [facility] (Lab) [address] [place], [address], 2022 19:50:12 11/16/1911/15/2022 COMPR EHENS HEATHER METAB OLIC PANEL A/G ratio 1.9 ratio 1.0-2. 0 Not Available [facility] (Lab) [address] [place], [address], 2022 19:50:12 11/16/1911/15/2022 LIPID PANEL cholesterol 233 mg/dL 140-19 9 high NIH XAVIER NSUS RECOM MENDA TION FOR OLY STERO L: ADULT CHILD LOW RISK: <200 <170 BORDE RLINE : <200- 239 ----- HIGH RISK: >240 >200 Not Available [facility] (Lab) [address] [place], [address], 2022 19:50:17 11/16/1911/15/2022 LIPID PANEL triglyceride s 212 mg/dL 0-150 high NIH XAVIER NSUS REPOR T RECOM MENDA TION FOR TRIGL YCERI BRIGID: ADULT CHILD LOW RISK: <150 ----- BODER LINE: 150-1 99 ----- HIGH RISK: >200 ----- Not Available [facility] (Lab) [address] [place], [address], 2022 19:50:17 11/16/1911/15/2022 LIPID PANEL HDL cholesterol 66 mg/dL 40- Not Available [facility] (Lab) [address] [place], [address], 2022 19:50:17 11/16/1911/15/2022 LIPID PANEL LDL cholesterol, calculated 125 mg/dL 0-130 NIH XAVIER NSUS REPOR T RECOM MENDA TIONS FOR LDL: ADULT CHILD LOW RISK <130 <110 (OPTI MAL LDL) <100 ----- BORDE RLINE : 130-1 59 ----- HIGH RISK: >160 >130 A TRIGL YCERI DE RESUL T >400 INVAL IDATE S THE CALCU LATIO N FOR LDL FRACT IONAT ION - THE LDL RESUL T WILL NOT BE REPOR TRE. Not Available [facility] (Lab) [address] [place], [address], 2022 19:50:17 11/16/19 23 2022 TSH W/REF CELY FT4 TSH with reflex free T4 1.070 uIU/m L 0.465- 4.680 Not Available [facility] (Lab) [address] [place], [address], 2022 20:07:25 11/16/19 23 2022 VITAM IN B12 (WALLY SUNIL ) vb12 575 pg/mL 239-93 1 Not Available [facility] (Lab) [address] [place], [address], 2022 20:31:52 11/16/19 23 2022 FOLAT E, SERUM /PLAS MA folate >20.0 NG/mL 2.76-2 0.0 Not Available [facility] (Lab) [address] [place], [address], 2022 20:31:57 02/23/19 24 02/23/2023 COMPR EHENS HEATHER METAB OLIC PANEL sodium 143 mmol/ L 137-14 5 Not Available [facility] (Lab) [address] [place], [address], 02/23/2023 19:11:39 02/23/19 24 02/23/2023 COMPR EHENS HEATHER METAB OLIC PANEL potassium 4.3 mmol/ L 3.5-5. 1 Not Available [facility] (Lab) [address] [place], [address], 02/23/2023 19:11:39 01/05/20 24 02/23/2023 COMPR EHENS HEATHER METAB OLIC PANEL chloride 105 mmol/ L 98-107 Not Available [facility] (Lab) [address] [place], [address], 02/23/2023 19:11:39 02/23/19 24 02/23/2023 COMPR EHENS HEATHER METAB OLIC PANEL carbon dioxide 29 mmol/ L 22-30 Not Available [facility] (Lab) [address] [place], [address], 02/23/2023 19:11:39 02/23/19 24 02/23/2023 COMPR EHENS HEATHER METAB OLIC PANEL anion gap 13.3 mmol/ L 14-22 low Not Available [facility] (Lab) [address] [place], [address], 02/23/2023 19:11:39 02/23/19 24 02/23/2023 COMPR EHENS HEATHER METAB OLIC PANEL glucose 107 mg/dL 70-99 high Not Available [facility] (Lab) [address] [place], [address], 02/23/2023 19:11:39 02/23/19 24 02/23/2023 COMPR EHENS HEATHER METAB OLIC PANEL BUN 16 mg/dL 8-19 Not Available [facility] (Lab) [address] [place], [address], 02/23/2023 19:11:39 02/23/19 24 02/23/2023 COMPR EHENS HEATHER METAB OLIC PANEL creatinine 0.84 mg/dL 0.66-1 .25 Not Available [facility] (Lab) [address] [place], [address], 02/23/2023 19:11:39 02/23/19 24 02/23/2023 COMPR EHENS HEATHER METAB OLIC PANEL GFR >60 Refer ence Range : Patterson ge GFR Healt hy Adult : >60 mL/mi n/1.7 3 m2 Chron ic Kidne y Disea se: 15-60 mL/mi n/1.7 3 m2 Kidne y Failu re: <15/m L/min /1.73 m2 www.n iddk. nih.g ov The MDRD study equat ion has not been valid ated in child severo <18 years of age; pregn ant women ; the elder ly >85 years of age; or in some racia l or ethni c subgr oups, such as Hispa nics. Outsi de the valid ated ashley eters , estim ated GFR is less accur ate, requi ring clini rigo judgm ent on a case- by-ca se basis . Clini rigo inter preta tion for other races and ages must be made by the clini michael. The MDRD study equat ion has not been valid ated for the evalu ation of serum creat inine relat ed to nutri daniel l statu s or medic ation usage . For perso ns <18 years of age, a pedia tric GFR calcu lator is avail able on the [facility] websi te: https ://delmy w.kid donald.o rg/pr ofess ional s/kdo qi/gf r_cal culat or Not Available [facility] (Lab) [address] [place], [address], 02/23/2023 19:11:39 02/23/19 24 02/23/2023 COMPR EHENS HEATHER METAB OLIC PANEL alkaline phosphatase 63 U/L 38-126 Not Available [facility] (Lab) [address] [place], [address], 02/23/2023 19:11:39 02/23/19 24 02/23/2023 COMPR EHENS HEATHER METAB OLIC PANEL alanine aminotransfe rase 22 U/L 0-35 Not Available [facility] (Lab) [address] [place], [address], 02/23/2023 19:11:39 02/23/19 24 02/23/2023 COMPR EHENS HEATHER METAB OLIC PANEL aspartate aminotransfe rase 31 U/L 15-37 Not Available [facility] (Lab) [address] [place], [address], 02/23/2023 19:11:39 02/23/19 24 02/23/2023 COMPR EHENS HEATHER METAB OLIC PANEL bilirubin, total 0.50 mg/dL 0.20-1 .30 Not Available [facility] (Lab) [address] [place], [address], 02/23/2023 19:11:39 02/23/19 24 02/23/2023 COMPR EHENS HEATHER METAB OLIC PANEL calcium 9.6 mg/dL 8.4-10 .2 Not Available [facility] (Lab) [address] [place], [address], 02/23/2023 19:11:39 02/23/19 24 02/23/2023 COMPR EHENS HEATHER METAB OLIC PANEL total protein 7.5 g/dL 6.3-8. 2 Not Available [facility] (Lab) [address] [place], [address], 02/23/2023 19:11:39 02/23/19 24 02/23/2023 COMPR EHENS HEATHER METAB OLIC PANEL albumin 4.7 g/dL 3.0-4. 4 high Not Available [facility] (Lab) [address] [place], [address], 02/23/2023 19:11:39 02/23/19 24 02/23/2023 COMPR EHENS HEATHER METAB OLIC PANEL globulin 2.8 g/dL 2.6-4. 2 Not Available [facility] (Lab) [address] [place], [address], 02/23/2023 19:11:39 02/23/19 24 02/23/2023 COMPR EHENS HEATHER METAB OLIC PANEL A/G ratio 1.7 ratio 1.0-2. 0 Not Available [facility] (Lab) [address] [place], [address], 02/23/2023 19:11:39 02/23/19 24 02/23/2023 LIPID PANEL cholesterol 190 mg/dL 140-19 9 NIH XAVIER NSUS RECOM MENDA TION FOR OLY STERO L: ADULT CHILD LOW RISK: <200 <170 BORDE RLINE : <200- 239 ----- HIGH RISK: >240 >200 Not Available [facility] (Lab) [address] [place], [address], 02/23/2023 19:11:45 02/23/1902/23/2023 LIPID PANEL triglyceride s 265 mg/dL 0-150 high NIH XAVIER NSUS REPOR T RECOM MENDA TION FOR TRIGL YCERI BRIGID: ADULT CHILD LOW RISK: <150 ----- BODER LINE: 150-1 99 ----- HIGH RISK: >200 ----- Not Available [facility] (Lab) [address] [place], [address], 02/23/2023 19:11:45 02/23/19 24 02/23/2023 LIPID PANEL HDL cholesterol 70 mg/dL 40- Not Available [facility] (Lab) [address] [place], [address], 02/23/2023 19:11:45 02/23/19 24 02/23/2023 LIPID PANEL LDL cholesterol, calculated 67 mg/dL 0-130 NIH XAVIER NSUS REPOR T RECOM MENDA TIONS FOR LDL: ADULT CHILD LOW RISK <130 <110 (OPTI MAL LDL) <100 ----- BORDE RLINE : 130-1 59 ----- HIGH RISK: >160 >130 A TRIGL YCERI DE RESUL T >400 INVAL IDATE S THE CALCU LATIO N FOR LDL FRACT IONAT ION - THE LDL RESUL T WILL NOT BE REPOR TRE. Not Available [facility] (Lab) [address] [place], [address], 02/23/2023 19:11:45 04/13/19 24 04/13/2023 CBC/C OMPLE TE BLD COUNT W/DIF F white blood cells 7.9 x10'3 /uL 4.2-10 .8 Not Available [facility] (Lab) [address] [place], [address], 04/13/2023 13:59:55 04/13/19 24 04/13/2023 CBC/C OMPLE TE BLD COUNT W/DIF F red blood cells 3.66 x10'6 /uL 3.80-5 .20 low Not Available [facility] (Lab) [address] [place], [address], 04/13/2023 13:59:55 04/13/19 24 04/13/2023 CBC/C OMPLE TE BLD COUNT W/DIF F hemoglobin 11.9 g/dL 12.0-1 5.6 low Not Available [facility] (Lab) [address] [place], [address], 04/13/2023 13:59:55 04/13/19 24 04/13/2023 CBC/C OMPLE TE BLD COUNT W/DIF F hematocrit 35.5 % 35.7-4 5.7 low Not Available [facility] (Lab) [address] [place], [address], 04/13/2023 13:59:55 04/13/19 24 04/13/2023 CBC/C OMPLE TE BLD COUNT W/DIF F mean red cell volume 97.0 fL 82.0-9 9.0 Not Available [facility] (Lab) [address] [place], [address], 04/13/2023 13:59:55 04/13/19 24 04/13/2023 CBC/C OMPLE TE BLD COUNT W/DIF F mean red cell hemoglobin 32.5 pg 27.0-3 3.0 Not Available [facility] (Lab) [address] [place], [address], 04/13/2023 13:59:55 04/13/19 24 04/13/2023 CBC/C OMPLE TE BLD COUNT W/DIF F mean RBC HGB concentratio n 33.5 g/dL 31.0-3 6.0 Not Available [facility] (Lab) [address] [place], [address], 04/13/2023 13:59:55 04/13/19 24 04/13/2023 CBC/C OMPLE TE BLD COUNT W/DIF F red cell distribution width 12.3 % 11.8-1 5.5 Not Available [facility] (Lab) [address] [place], [address], 04/13/2023 13:59:55 04/13/19 24 04/13/2023 CBC/C OMPLE TE BLD COUNT W/DIF F platelets 284 x10'3 /uL 150-40 0 Not Available [facility] (Lab) [address] [place], [address], 04/13/2023 13:59:55 04/13/19 24 04/13/2023 CBC/C OMPLE TE BLD COUNT W/DIF F mean platelet volume 9.6 fL 9.0-12 .4 Not Available [facility] (Lab) [address] [place], [address], 04/13/2023 13:59:55 04/13/19 24 04/13/2023 CBC/C OMPLE TE BLD COUNT W/DIF F neutrophils 69.9 % 39.0-7 2.0 Not Available [facility] (Lab) [address] [place], [address], 04/13/2023 13:59:55 04/13/19 24 04/13/2023 CBC/C OMPLE TE BLD COUNT W/DIF F lymphocytes 20.9 % 16.0-4 7.0 Not Available [facility] (Lab) [address] [place], [address], 04/13/2023 13:59:55 04/13/19 24 04/13/2023 CBC/C OMPLE TE BLD COUNT W/DIF F monocytes 8.1 % 5.0-12 .0 Not Available [facility] (Lab) [address] [place], [address], 04/13/2023 13:59:55 04/13/19 24 04/13/2023 CBC/C OMPLE TE BLD COUNT W/DIF F eosinophils 0.0 % 1.0-7. 0 low Not Available [facility] (Lab) [address] [place], [address], 04/13/2023 13:59:55 04/13/19 24 04/13/2023 CBC/C OMPLE TE BLD COUNT W/DIF F basophils 0.5 % 0.0-2. 0 Not Available [facility] (Lab) [address] [place], [address], 04/13/2023 13:59:55 04/13/19 24 04/13/2023 CBC/C OMPLE TE BLD COUNT W/DIF F immature granulocytes 0.6 % 0.00-0 .50 high Not Available [facility] (Lab) [address] [place], [address], 04/13/2023 13:59:55 04/13/19 24 04/13/2023 CBC/C OMPLE TE BLD COUNT W/DIF F neutrophils, absolute count 5.51 x10'3 /uL 1.5-8. 0 Not Available [facility] (Lab) [address] [place], [address], 04/13/2023 13:59:55 04/13/19 24 04/13/2023 CBC/C OMPLE TE BLD COUNT W/DIF F lymphocytes, absolute count 1.65 x10'3 /uL 1.07-3 .43 Not Available [facility] (Lab) [address] [place], [address], 04/13/2023 13:59:55 04/13/19 24 04/13/2023 CBC/C OMPLE TE BLD COUNT W/DIF F monocytes, absolute count 0.64 x10'3 /uL 0.29-0 .99 Not Available [facility] (Lab) [address] [place], [address], 04/13/2023 13:59:55 04/13/19 24 04/13/2023 CBC/C OMPLE TE BLD COUNT W/DIF F eosinophils, absolute count 0.00 x10'3 /uL 0.02-0 .53 low Not Available [facility] (Lab) [address] [place], [address], 04/13/2023 13:59:55 04/13/19 24 04/13/2023 CBC/C OMPLE TE BLD COUNT W/DIF F basophils, absolute count 0.04 x10'3 /uL 0.01-0 .08 Not Available [facility] (Lab) [address] [place], [address], 04/13/2023 13:59:55 04/13/19 24 04/13/2023 CBC/C OMPLE TE BLD COUNT W/DIF F immature granulocytes ,absolute 0.05 x10'3 /uL 0.00-0 .05 Not Available [facility] (Lab) [address] [place], [address], 04/13/2023 13:59:55 04/13/19 24 04/13/2023 CBC/C OMPLE TE BLD COUNT W/DIF F nucleated red blood cells 0.0 % -0 Not Available [facility] (Lab) [address] [place], [address], 04/13/2023 13:59:55 04/13/19 24 04/13/2023 CBC/C OMPLE TE BLD COUNT W/DIF F NRBC# 0.00 x10'3 /uL Not Available [facility] (Lab) [address] [place], [address], 04/13/2023 13:59:55 04/13/19 24 04/13/2023 AST/S GOT aspartate aminotransfe rase 25 U/L 15-37 Not Available [facility] (Lab) [address] [place], [address], 04/13/2023 14:34:11 04/13/19 24 04/13/2023 BASIC METAB OLIC PANEL sodium 140 mmol/ L 137-14 5 Not Available [facility] (Lab) [address] [place], [address], 04/13/2023 14:34:16 04/13/19 24 04/13/2023 BASIC METAB OLIC PANEL potassium 3.5 mmol/ L 3.5-5. 1 Not Available [facility] (Lab) [address] [place], [address], 04/13/2023 14:34:16 04/13/19 24 04/13/2023 BASIC METAB OLIC PANEL chloride 102 mmol/ L 98-107 Not Available [facility] (Lab) [address] [place], [address], 04/13/2023 14:34:16 04/13/19 24 04/13/2023 BASIC METAB OLIC PANEL carbon dioxide 29 mmol/ L 22-30 Not Available [facility] (Lab) [address] [place], [address], 04/13/2023 14:34:16 04/13/19 24 04/13/2023 BASIC METAB OLIC PANEL anion gap 12.5 mmol/ L 14-22 low Not Available [facility] (Lab) [address] [place], [address], 04/13/2023 14:34:16 04/13/19 24 04/13/2023 BASIC METAB OLIC PANEL glucose 114 mg/dL 70-99 high Not Available [facility] (Lab) [address] [place], [address], 04/13/2023 14:34:16 04/13/19 24 04/13/2023 BASIC METAB OLIC PANEL BUN 25 mg/dL 8-19 high Not Available [facility] (Lab) [address] [place], [address], 04/13/2023 14:34:16 04/13/19 24 04/13/2023 BASIC METAB OLIC PANEL creatinine 0.86 mg/dL 0.66-1 .25 Not Available [facility] (Lab) [address] [place], [address], 04/13/2023 14:34:16 04/13/19 24 04/13/2023 BASIC METAB OLIC PANEL GFR >60 Refer ence Range : [place] ge GFR Healt hy Adult : >60 mL/mi n/1.7 3 m2 Chron ic Kidne y Disea se: 15-60 mL/mi n/1.7 3 m2 Kidne y Failu re: <15/m L/min /1.73 m2 www.n iddk. nih.g ov The MDRD study equat ion has not been valid ated in child severo <18 years of age; pregn ant women ; the elder ly >85 years of age; or in some racia l or ethni c subgr oups, such as Hispa nics. Outsi de the valid ated ashley eters , estim ated GFR is less accur ate, requi ring clini rigo judgm ent on a case- by-ca se basis . Clini rigo inter preta tion for other races and ages must be made by the clini michael. The MDRD study equat ion has not been valid ated for the evalu ation of serum creat inine relat ed to nutri daniel l statu s or medic ation usage . For perso ns <18 years of age, a pedia tric GFR calcu lator is avail able on the [facility] websi te: https ://delmy bennett.cuba nunez/sb marinaess ional s/kdo qi/gf r_cal culat or Not Available [facility] (Lab) [address] [place], [address], 04/13/2023 14:34:16 04/13/19 24 04/13/2023 BASIC METAB OLIC PANEL calcium 9.7 mg/dL 8.4-10 .2 Not Available [facility] (Lab) [address] [place], [address], 04/13/2023 14:34:16 12/12/19 XR, knee No observ ation record ed. [facility] [address], [place], [address], 12/11/2022 16:32:52 02/27/19 24 02/27/2023 MAMMO , scree shaina, bilat eral No observ ation record ed. [email or web address] [facility] [address], [place], [address], 02/28/2023 14:34:48 Result Notes None recorded. Problems Name Problem SNOMED Code Status Onset Date Resolution Date Notes Provider Name and Address Organization Details Recorded Time Cobalamin deficiency 450660223 Active 2021 Not Available [facility] 4 19:23:38 Hyperlipid emia 87690099 Active 2021 Not Available [facility] 4 19:23:38 Prediabete s 833115410 Active 2021 Not Available [facility] 4 19:23:38 Fatigue 88616346 Active 2022 Not Available [facility] 4 19:23:38 Allergic rhinitis 99808237 Active 2022 Not Available [facility] 4 19:23:38 Menopausal symptom 41068418 Active 2022 Not Available [facility] 4 19:23:38 Gastroesop hageal reflux disease without esophagiti s 499935479 Active 2022 Not Available [facility] 4 19:23:38 Mixed anxiety and depressive disorder 258913513 Active 2022 Not Available [facility] 4 19:23:38 Carotid artery stenosis 87125904 Active 2022 Not Available [facility] 4 19:23:38 Osteopenia 284168409 Active 2022 Not Available [facility] 4 19:23:38 Vitamin D deficiency 72253135 Active 2022 Not Available [facility] 4 19:23:38 Pain of right knee joint 6315322360980 00 Active 2022 Not Available [facility] 4 19:23:38 Problem Notes None recorded. Procedures Surgical History Date Name Laterality Status Provider Name and Address Organization Details Recorded Time Unlisted px femur/knee completed Not Available [facility] 04/20/2022 00:58:56 Appendectomy completed Not Available [facility] 04/20/2022 00:58:56 Imaging Results Imaging Date Name Status LastModified by Organiz ation Details LastModified Time 12/11/2022 XR, knee completed [facility] [address], [place], [address], 12/11/2022 16:32:52 02/27/2023 MAMMO, screening, bilateral completed [email or web address] [facility] [address], [place], [address], 02/28/2023 14:34:48 Procedure Notes None recorded. Medical Equipment None Reported. Allergies No known drug allergies Medications Name Sig Start Date Stop Date Status Note LastModified by Organization Details LastModified Time atorvastati n 40 mg tablet Take 1 tablet(s) every day by oral route. active Not Available Not Available No t Available promethazin e-DM 6.25 mg-15 mg/5 mL oral syrup TAKE 5 ML BY MOUTH EVERY 4 TO 6 HOURS NEEDED FOR COUGH 09/05 completed Not Available Not Available Not Available atorvastati n 20 mg tablet TAKE ONE TABLET BY MOUTH EVERY DAY 12/11 completed Not Available Not Available Not Available atorvastati n 10 mg tablet TAKE 1 TABLET BY MOUTH DAILY 09/28 completed Not Available Not Available Not Available hydrocodone 5 mg-acetamin ophen 325 mg tablet TAKE 1 TABLET BY MOUTH EVERY 6 HOURS NEEDED FOR PAIN 08/10 completed Not Available Not Available Not Available meloxicam 15 mg tablet TAKE 1 TABLET BY MOUTH DAILY active Not Available Not Available No t Available famotidine 40 mg tablet TAKE 1 TABLET BY MOUTH DAILY active Not Available Not Available No t Available sertraline 100 mg tablet TAKE 1 AND 1/2 TABLETS BY MOUTH DAILY active Not Available Not Available No t Available topiramate 25 mg tablet Take 1 tablet twice a day by oral route. 09/05 completed Not Available Not Available Not Available phentermine 37.5 mg tablet Take 1 tab PO daily in AM active Not Available Not Available No t Available aspirin 325 mg tablet,heather yed release 08/10 completed Not Available Not Available Not Available pantoprazol e 40 mg tablet,heather yed release TAKE 1 TABLET BY MOUTH EVERY MORNING active Not Available Not Available No t Available cyanocobala min (vit B-12) 1,000 mcg/mL injection solution Inject 1 mL every month by subcutane ous route. 11/15 completed Not Available Not Available Not Available gabapentin 300 mg capsule 08/10 completed Not Available Not Available Not Available montelukast 10 mg tablet active Not Available Not Available Not Available estradiol 0.01% (0.1 mg/gram) vaginal cream active Not Available Not Available Not Available albuterol sulfate HFA 90 mcg/actuati on aerosol inhaler INHALE 1 PUFF BY MOUTH EVERY 4 HOURS NEEDED FOR SHORTNESS OF BREATH OR WHEEZING active Not Available Not Available No t Available fluticasone propionate 50 mcg/actuati on nasal spray,suspe nsion SHAKE LIQUID AND USE 2 SPRAYS IN EACH NOSTRIL DAILY 2022 active Not Available Not Available Not Avai lable oxycodone 5 mg tablet 08/10 completed Not Available Not Available Not Available cyclobenzap rine 5 mg tablet 08/10 completed Not Available Not Available Not Available Ozempic 0.25 mg or 0.5 mg (2 mg/1.5 mL) subcutaneou s pen injector INJECT 0.25 MG UNDER THE SKIN WEEKLY FOR 4 WEEKS, THEN INCREASE TO 0.5 MG WEEKLY THEREAFTE R 11/02 completed Appro erick. Case# [id number]. Valid : - . Not Available Not Available Not Available [employer]flex COVID-19 Antigen Home Test kit 02/22 completed Not Available Not Available Not Available Paxlovid 300 mg (150 mg x 2)-100 mg tablets in a dose pack TAKE 2 NIRMATREL VIR 150 MG TABLETS AND 1 RITONAVIR 100 MG TABLET TOGETHER BY MOUTH TWICE DAILY FOR 5 DAYS 02/22 completed Not Available Not Available Not Available Mounjaro 7.5 mg/0.5 mL subcutaneou s pen injector INJECT 7.5 MG UNDER THE SKIN EVERY WEEK 09/05 completed Not Available Not Available Not Available Mounjaro 5 mg/0.5 mL subcutaneou s pen injector Inject 5 mg every week by subcutane ous route. active Not Available Not Available No t Available Mounjaro 10 mg/0.5 mL subcutaneou s pen injector Inject 0.5 mL every week by subcutane ous route. 09/05 completed Not Available Not Available Not Available Mounjaro 12.5 mg/0.5 mL subcutaneou s pen injector ADMINISTE R 12.5 MG(0.5 ML) UNDER THE SKIN EVERY WEEK 09/05 completed Not Available Not Available Not Available Mounjaro 2.5 mg/0.5 mL subcutaneou s pen injector INJECT 2.5MG UNDER THE SKIN ONCE WEEKLY 11/30 completed Not Available Not Available Not Available Vitals Date Recorded Body height Provider Name an d Address Organization Details Last Updated DateTime 09/05/2022 167.64 cm Cinthya Wyatt [place] - [facility] [employer] 09/05/2022 10:39:51 Date Recorded Body height Body mass index (BMI) Body weight Body temperature Heart rate Systolic blood pressure Diastolic blood pressure Provider Name and Address Organization Details Last Updated DateTime 3 167.64 cm 29.2 kg/m2 74909.2 2 g 97.5 [degF] 76 /min 116 mm[Hg] 70 mm[Hg] Cinthya Wyatt MA [facility] [employer] [facility] 3 14:11:19 Date Recorded Body height Body mass index (BMI) Body weight Provider Name and Address Organization Details Last Updated DateTime 12/11/2022 167.64 cm 29.7 kg/m2 88596.71 g Dominique Lacy CNA [facility] [employer] [facility] 12/11/2022 15:47:32 Date Recorded Body height Provider Name an d Address Organization Details Last Updated DateTime 01/22/2023 167.64 cm Anneliese Baeza [facility] [employer] [facility] 01/22/2023 14:24:04 Date Recorded Body height Body mass index (BMI) Body weight Body temperature Heart rate Oxygen saturation Oxygen saturation in Arterial blood by Pulse oximetry Systolic blood pressure Diastolic blood pressure Provider Name and Address Organization Details Last Updated DateTime 4 167.64 cm 31.3 kg/m2 76890.9 2 g 97.8 [degF] 86 /min 97 % 97 % 122 mm[Hg] 80 mm[Hg] Cinthya Wyatt MA [facility] [employer] [facility] 4 14:02:30 Social History Question Answer Notes LastModified by Organization Details LastModified Time Tobacco Smoking Status Former Smoker RADHA Gatica, [facility] 03/07/2023 13:47:50 What Is Your Level Of Alcohol Consumption? Occasional [email or web address] Information not available 12/11/2022 What Is Your Level Of Caffeine Consumption? Occasional [id number] Information not available 04/20/2022 In The 14 Days Before Symptom Onset, Have You Had Close Contact With A Laboratory-conf irmed COVID-19 While That Case Was Ill? No [email or web address] Information not available 03/07/2023 In The 14 Days Before Symptom Onset, Have You Had Close Contact With A Person Who Is Under Investigation For COVID-19 While That Person Was Ill? No Information not available 03/07/2023 What Type Of Diet Are You Following? REGULAR [id number] Information not available 04/20/2022 What Is The Highest Grade Or Level Of School You Have Completed Or The Highest Degree You Have Received? [id number] [email or web address] Information not available 03/07/2023 Have There Been Any Changes To Your Family Or Social Situation? Yes Sister Has Dementia [email or web address] Information not available 03/07/2023 What Is The Fluoride Status Of Your Home? Unknown [email or web address] Information not available 03/07/2023 When Did You Quit Smoking? 11-15yearssincelas tcigarette [email or web address] Information not available 03/07/2023 Do You Use Insect Repellent Routinely? No [email or web address] Information not available 03/07/2023 Where Do You Live? SingleLevelHouse [email or web address] Information not available 03/07/2023 What Was The Date Of Your Most Recent Tobacco Screening? 03/07/2023 [email or web address] Information not available 03/07/2023 Do You Have Any Pets? No Information not available 03/07/2023 What Is Your Relationship Status? [id number] Information not available 04/20/2022 Do You Use Your Seat Belt Or Car Seat Routinely? Yes [email or web address] Information not available 03/07/2023 Do You Have Smoke And Carbon Monoxide Detectors In Your Home? Yes [email or web address] Information not available 03/07/2023 Are You Passively Exposed To Smoke? No [email or web address] Information not available 03/07/2023 Are There Any Smokers In Your House? No [email or web address] Information not available 03/07/2023 Do You Feel Stressed (tense, Restless, Nervous, Or Anxious, Or Unable To Sleep At Night)? [id number] [email or web address] Information not available 03/07/2023 Do You Use Any Illicit Or Recreational Drugs? No [email or web address] Information not available 03/07/2023 Do You Use Sunscreen Routinely? Yes [email or web address] Information not available 03/07/2023 Have You Recently Traveled Abroad? No [email or web address] Information not available 03/07/2023 Do You Have Any Dietary Restrictions? No [email or web address] Information not available 03/07/2023 Do You Or Have You Ever Used Any Other Forms Of Tobacco Or Nicotine? No [email or web address] Information not available 03/07/2023 Sex: Unknown Functional Status Question Answer Note LastModified by Organizat ion Details LastModified Time What is your exercise level? Occasional [id number] Information not available 04/20/2022 Mental Status None recorded. Family History Relationship Description Onset Age of this Age Resolved Age Notes LastModified by Organization Details LastModified Time Mother Malignant tumor of breast [email or web address] Not available 02/19 13:47:50 Mother Hypertensive disorder [id number] Not available 04/20/2022 00:59:00 Sister Malignant tumor of breast X2 [email or web address] Not available 02/19 13:47:50 Sister Heart disease [email or web address] Not available 2022 15:42:29 Sister Blood coagulation disorder [email or web address] Not available 02/19 13:47:50 Sister Dementia [email or web address] Not availa ble 03/07/2023 13:47:50 Sister Diabetes mellitus [id number] Not available 04/20/2022 00:59:00 Sister Hypertensive disorder X3 [id number] Not available 04/20/2022 00:59:00 Father Diabetes mellitus [id number] Not available 04/20/2022 00:59:00 Father Heart disease [id number] Not available 04/20/2022 00:59:00 Brother Heart disease [id number] Not available 04/20/2022 00:59:00 Father Hypertensive disorder [email or web address] Not available 2022 15:42:16 Medical History Condition Response DIABETES, TYPE ARTHRITIS Y ANXIETY DISORDER Y DEPRESSION (INCLUDING POST ) Y ANEMIA/BLOOD DISORDER Y Gynecological HistoryNo gynecological history recorded. Obstetrics History GPAL:G 0 P 0 0 0 0 Immunizations Vaccine Type Date Status Note Provider Nam e and Address Organization Details Recorded Time COVID-19, mRNA, LNP-S, PF, 30 mcg/0.3 mL dose 1 completed Not Available [facility] 03/09/2023 19:23:38 COVID-19, mRNA, LNP-S, PF, 30 mcg/0.3 mL dose 1 completed Not Available [facility] 03/09/2023 19:23:38 COVID-19, mRNA, LNP-S, PF, 30 mcg/0.3 mL dose 1 completed Not Available [facility] 03/09/2023 19:23:38 Influenza, split virus, quadrivalent, PF 2 completed Not Available [facility] 03/09/2023 19:23:38 Pneumococcal conjugate PCV20, polysaccharide [id number] conjugate, adjuvant, PF 3 completed Niesha Messina, [facility] [address] [facility] [address], [place], [address], [facility] 2022 15:56:19 Past Encounters Encounter ID Performer Location Encounter Start Date Encounter Closed Date Diagnosis/Indication Diagnosis SNOMED-CT Code Diagnosis ICD10 Code Diagnosis Note [id number] [facility] Internal Med [place] [address] [place] [address] y , [place] [address] 08/10/2021 00:00:00 08/10/2021 15:43:37 [id number] [facility] Internal Med [place] [address] [place] [address] y , [place] [address] 08/31/2021 00:00:00 08/31/2021 17:08:01 [id number] [facility] Internal Med [place] [address] [place] [address] y , [place] [address] 09/28/2021 00:00:00 09/28/2021 13:51:04 [id number] [facility] Internal Med [place] [address] [place] [address] [place] [address] 10/05/2021 00:00:00 10/05/2021 13:00:40 [id number] [facility] Internal [place] [address] [place] [address] y , [place] [address] 11/02/2021 00:00:00 11/02/2021 12:59:32 [id number] [facility] Internal Med [place] [address] [place] [address] 11/30/2021 00:00:00 11/30/2021 12:58:52 [id number] [facility] Internal Med Hollie m[place] [address] [place] [address] 02/22/2022 00:00:00 02/22/2022 17:33:35 [id number] ONOFRE Chen-Elva [facility] Internal Med [facility] [address] , [address] [place] [address] 09/05/2022 10:35:44 09/05/2022 11:31:06 Cobalamin deficiency 163061167 E53.8 On monthly injections Hyperlipidemia 17147782 E78.5 On atorvastat in Fatigue 57026730 R53.83 also recommend sleep study which she declined Menopausal symptom 66163 002 E89.41 estradiol low/FSH elevated on labs c/w with menopausal femalenow following [facility] [place] Allergic rhinitis 621656 04 J30.9 On Singulair and Flonase Call office if any change in mood or behavior Renewal of prescription 648515262 Z76.0 Gastroesop hageal reflux disease without esophagitis 277664659 K21.9 on protonix and famotidine Mixed anxi ety and depressive disorder 697870319 F41.8 on sertraline , she is aware of side effects, risks, benefitsca ll office if any change in mood or behaviorsh e declines psychiatry referral Prediabetes 075400868 R7 3.03 Ozempic was not covered by insurance, but Christopher was, she is aware this is off label for prediabete spt is aware of side effects, risks, benefitspt denies any personal or family history of MEN II or MTC, denies and personal history of pancreatit ispt knows to call the office if any severe n/v or abdominal pain Wants to lose weight 170 451888 Z71.3 recommend healthy, well balanced mealsfocus on lean meats, fresh vegetables , fresh fruits, whole grainsredu ce fast/proce ssed foods or eating out to no more than 1-2 times per weekaim to get 30 min of exercise most days of the week- walking is a great choicealso recommend resistance training 2-3 times per week Carotid ar kamryn stenosis 89525333 I65.29 carotid doppler <50% stenosis bilaterall y Osteopenia 985384874 M85 .80 on OTC calcium/vi tamin dweight bearing exercise recommende d 2-3x per week [id number] Niesha Messina, CANELO [facility] Internal Med [place] [address] [facility] [place] [address] 2022 13:56:00 2022 14:38:36 Cobalamin deficiency 031645025 E53.8 On monthly injections Hyperlipidemia 43704529 E78.5 On atorvastat in Fatigue 98538570 R53.83 also recommend sleep study which she declined Menopausal symptom 28712 002 E89.41 estradiol low/FSH elevated on labs c/w with menopausal female now following [facility] [place] Allergic rhinitis 531278 04 J30.9 On Singulair and FlonaseCal l office if any change in mood or behavior Gastroesop hageal reflux disease without esophagitis 003998360 K21.9 on protonix and famotidine Mixed anxi ety and depressive disorder 079457428 F41.8 on sertraline , she is aware of side effects, risks, benefits call office if any change in mood or behavior she declines psychiatry referral Prediabetes 442781562 R7 3.03 insurance will no longer cover Raj harjinder is working on lifestyle measures Wants to lose weight 170 195297 Z71.3 recommend healthy, well balanced mealsfocus on lean meats, fresh vegetables , fresh fruits, whole grainsredu ce fast/proce ssed foods or eating out to no more than 1-2 times per weekaim to get 30 min of exercise most days of the week- walking is a great choicealso recommend resistance training 2-3 times per week Carotid ar kamryn stenosis 09240031 I65.29 carotid doppler <50% stenosis bilaterall y Osteopenia 697928374 M85 .80 on OTC calcium/vi tamin d weight bearing exercise recommende d 2-3x per week Vitamin D deficiency 347 00063 E55.9 on OTC supplement Screening mammography 24 800834 Z12.31 Pain of ri ght knee joint 5854257899 64772 M25.561 get appt with ortho- she would like another injection Administra tion of pneumococcal vaccine 23695309 Z23 [id number] Jero Ann MD [facility] [place] [place] [address] [place] [address] 12/11/2022 14:35:27 12/11/2022 16:37:37 Pain of right knee joint 8202349715 08973 M25.155 [id number] LARISA Schwab [facility] [place] [place] [address] [place] [address] 01/22/2023 14:20:51 01/22/2023 15:28:26 Pain of right knee joint 1363177931 49471 M25.841 [id number] ONOFRE Chen-Elva [facility] Internal Med [place] [address] [facility], [address] [place] [address] 03/07/2023 13:46:03 03/07/2023 15:33:49 Cobalamin deficiency 812611135 E53.8 On monthly b12 injections Hyperlipidemia 72725316 E78.5 On atorvastat in Fatigue 43694848 R53.83 previously recommend sleep study which she declined Menopausal symptom 44246 002 E89.41 estradiol low/FSH elevated on labs c/w with menopausal femalenow following [facility] [place] Allergic rhinitis 443424 04 J30.9 On Singulair and FlonaseCal l office if any change in mood or behavior Gastroesop hageal reflux disease without esophagitis 562297798 K21.9 on protonix and famotidine Mixed anxi ety and depressive disorder 616983922 F41.8 on sertraline , she is aware of side effects, risks, benefitsca ll office if any change in mood or behaviorskarla grande declines psychiatry referral Prediabetes 270123629 R7 3.03 insurance will no longer cover Raj grande is working on lifestyle measures Wants to lose weight 170 264595 Z71.3 recommend healthy, well balanced mealsfocus on lean meats, fresh vegetables , fresh fruits, whole grainsredu ce fast/proce ssed foods or eating out to no more than 1-2 times per weekaim to get 30 min of exercise most days of the week- walking is a great choicealso recommend resistance training 2-3 times per week Carotid ar kamryn stenosis 47294816 I65.29 carotid doppler <50% stenosis bilaterall y Osteopenia 168532654 M85 .80 on OTC calcium/vi tamin dweight bearing exercise recommende d 2-3x per week Vitamin D deficiency 347 31347 E55.9 on OTC supplement Pain of ri ght knee joint 8078487423 78051 M25.561 following ortho- Dr. Ann Renewal of prescription 262708840 Z76.0 Health Concerns Section Related Observation LastModified by Organization Detai ls LastModified Time None Recorded Concern Status LastModified by Organization Details LastModified Time None Recorded Advance Directives Directive None Recorded Payers Encounter Date Sequence Insurance Name Policy Number Policy Zamora Covered Member ID Zamora Member ID Guarantor Name 09/05/2022 1 [facility] ([facility] [id number] Hannah Widenhoefer [id number] Hannah Widenhoefer 2022 1 [place] Hannah J Widenhoefer [id number] Hannah Widenhoefer 2022 2 [employer] (MEDICARE SUPPLEMENT) Hannah Widenhoefer [id number] Hannah Widenhoefer 12/11/2022 1 [place] Hannah J Widenhoefer [id number] Hannah Widenhoefer 12/11/2022 2 [employer] (MEDICARE SUPPLEMENT) Hannah Widenhoefer [id number] Hannah Widenhoefer 01/22/2023 1 [place] Hannah J Widenhoefer [id number] Hannah Widenhoefer 01/22/2023 2 [employer] (MEDICARE SUPPLEMENT) Hannah Widenhoefer [id number] Hannah Widenhoefer 03/07/2023 1 [place] Hannah J Widenhoefer [id number] Hannah Widenhoefer 03/07/2023 2 [employer] (MEDICARE SUPPLEMENT) Hannah Widenhoefer [id number] Hannah Widenhoefer Notes Date Note Type Note Provider Name and Address Organization Details Recorded Time 09/05/2022 text/html This is a tele alth visit conducted via phone call audio only. Patient agrees to telehealth visit. Hannah presents today by audio only. She is out of town caring for a very ill sister. She reports overall she is doing okay. She is under some stress with her sister being ill but feels like she is coping with this okay. Her mood is stable on her sertraline dose. She denies any SI or HI today. She feels like this is a good dose for her. She is needing a 1 time fill of her prescriptions sent to a pharmacy local to where she is she is not able to get home to get her medications. She reports her pharmacy was unable to get the Mounjaro so she has stopped that. Her GERD is well controlled on the current dose of medications. No issues with her allergies on the Singulair. CANELO Chen [address], [address], [place], [address], [place] 09/05/2022 11:12:16 2022 text/html Hannah presents to day for follow-up. She continues to deal with the stress of putting her sister into memory care for the dementia. She feels like she is coping with the stress okay. She feels like her mood meds are good dose for her. She denies any SI or HI today. She could no longer get the Mounjaro with her insurance, so she is working on diet and exercise for the prediabetes. She has had some long history of right knee pain. Previously she was getting injections into that knee. She is requesting to see Ortho to start back with injections again. She reports they worked well for her last time. She is now 67. She would like to get her pneumonia vaccine. She is due for labs and mammogram. CANELO Chen [address], [address], [place], [address], Ayannah 2022 15:57:11 12/11/2022 text/html patient is a 67-year-old female referred by Dr. Sanchez for evaluation of her right knee pain. Most her pain is infrapatellar. She has difficulty with stairs and walking longer distances. Sometime she feels pain in the back in the and she was told she had a popliteal cyst in the past. She has had more pain last few months but actually has had this problem for almost 10 years. For many years she was getting cortisone shots and lubricant injections periodically in both knees to treat this pain. She has not had a cortisone shot or the lubricant injection for about 3 years. Two years ago she had a tibial shaft fracture treated with intramedullary naima on the left knee. She has similar symptoms left knee but is milder and she thinks this is due to favoring the left knee with the right. She takes Tylenol. She does have history of GERD and takes pantoprazole and her GI symptoms are completely controlled with this regimen. She does not know of any reason that she cannot take nonsteroidal anti-inflammatory medications. No history of peptic ulcer disease kidney disease disease liver disease. . However in further conversation we talked about meloxicam and she has taken that the past several years ago. She eventually stopped at which she thinks coincides with the initiation of treatment for her reflux. Jero Ann MD [address], [facility] [address], [place], [address], [place] 12/11/2022 16:35:25 03/07/2023 text/html Hannah presents to day for follow-up. We discussed her recent labs. She reports she has not been focusing much on her nutrition or fitness. She knows she can do better with both her nutrition as well as getting an exercise. She is agreeable to work on some lifestyle changes before we add any medication to address the triglycerides. Her mood is stable on her current dose of sertraline. She feels like this is a good dose for her. She denies any SI or HI. Mammogram was just done earlier this month. Colonoscopy is not due until 2025. She plans transfer to a new PCP in [place]. CANELO Chen [address], [facility] [address], [place], [address], Ayannah 03/07/2023 14:24:22 OBGyn Episode No OBEpisode recorded.
--- OUTSIDE RECORDS SUMMARY | 2024-04-24 13:23 | XMS_ITS | Referral Summary ---
Author Organization [facility] Address [address] [place] [address] Care Team Providers Care Spray Crew Name Role Phone Iris Ravi MD Primary Care Provider [phone] Allergies No known active allergies Medications atorvastatin (LIPITOR) 10 mg tablet daily. [address] (PROTONIX) 40 mg EC tablet 8 Active sertraline (ZOLOFT) 100 mg tablet 8 Active meloxicam (MOBIC) 15 mg tablet TK 1 T PO QD 1 9 Active acetaminophen 500 mg capsuleIndicati ons:Fever Take 2 capsules (1,000 mg total) by mouth every 6 (six) hours 60 tablet 1 Active cyclobenzaprine (FLEXERIL) 5 mg tablet Take 1 tablet (5 mg total) by mouth 3 (three) times a day as needed for muscle spasms 30 tablet 1 Active senna (SENOKOT) 8.6 mg tabletIndicatio ns:constipation Take 2 tablets by mouth 2 (two) times a day 60 tablet 1 Active lidocaine (ASPERCREME) 4 % adhesive patch,medicated Place 1 patch on the skin daily 15 patch 1 Active aspirin 325 mg enteric coated tablet Take 1 tablet (325 mg total) by mouth 2 (two) times a day 28 tablet [address] (NexIUM) 40 mg capsule Take 1 capsule (40 mg total) by mouth daily before breakfast 14 capsule 1 Active oxyCODONE (ROXICODONE) 5 mg immediate release tabletIndicatio ns:Pain Take 1 tablet (5 mg total) by mouth every 4 (four) hours as needed for pain 20 tablet 1 Active HYDROcodone-edinson taminophen (NORCO) 5-325 mg per tabletIndicatio ns:Pain Take 1 tablet by mouth every 6 (six) hours as needed for pain 28 tablet 1 Active gabapentin (NEURONTIN) 300 mg capsule Take 1 capsule (300 mg total) by mouth 3 (three) times a day 28 capsule 1 Active albuterol HFA (PROVENTIL HFA,VENTOLIN HFA,PROAIR HFA) 90 mcg/actuation inhaler Inhale 2 puffs every 4 (four) hours as needed 0 Active azithromycin (ZITHROMAX) 250 mg tablet Take 2 tabs today, then 1 tab daily for next 4 days 0 Active famotidine (PEPCID) 40 mg tablet Take 40 mg by mouth daily 1 Active fluticasone propionate (FLONASE) 50 mcg/actuation nasal spray Administer 2 sprays into affected nostril(s) daily 0 Active methylPREDNISol one (MEDROL DOSEPACK) 4 mg Dosepack Take by mouth as directed 0 Active montelukast (SINGULAIR) 10 mg tablet TAKE 1 TABLET BY MOUTH DAILY. GENERIC EQUIVALENT FOR SINGULAIR 1 Active Active Problems Problem Noted Date Diagnosed Date Acute pain due to trauma 12/04/2020 GERD (gastroesophageal reflux disease) 1 Mixed hyperlipidemia 12/04/2020 Major depressive disorder 12/04/2020 Closed fracture of distal end of left fibula Avulsion fracture of condyle of femur 12/03/2020 Closed fracture of part of tibia 12/02/2020 Cervical radiculopathy 08/17/2016 Carpal tunnel syndrome 08/17/2016 Immunizations Immunization Administration Dates Next Due Influenza, Quadrivalent, Spl it, Intramuscular 11/12/2018 Influenza, Quadrivalent, Spl it, Preservative Free, Intramuscular 11/07/2019,12/03/2017 Influenza, Trivalent, Preser vative Free, Intramuscular 11/19/2016,12/21/2015,12/16/2014 Influenza, Unspecified 12/06/2017,11/18/2016 ZOSTER Recombinant 03/11/2019 Social History Tobacco Use Types Packs/Day Years Used Date Smoking Tobacco: Former Smokeless Tobacco: Never Tobacco Cessation:Counseling Given: No Alcohol Use Standard Drinks/Week Comments Yes 0 (1 standard drink = 0.6 oz pur e alcohol) 1-2 a month AUDIT-C Answer Date Recorded Q1: How often do you have a drink containing alc ohol? 2-3 times a week 12/03/2020 Q2: How many drinks containi ng alcohol do you have on a typical day when you are drinking? 1 or 2 12/03/2020 Q3: How often do you have si x or more drinks on one occasion? 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 Gender Identity Not on file Sexual Orientation Not on file Occupation Industry Job Start Date Job End Date 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 Not on file Not on file Not on file Last Filed Vital Signs Vital Sign Reading Time Taken Comments Blood Pressure 148/72 12/05/2020 1:08 PM CDT Pulse 85 12/05/2020 1:08 PM CDT Temperature 36.7 C (98 F) 12/05/2020 1:08 PM CDT Respiratory Rate 18 12/05/2020 1:08 PM CDT Oxygen Saturation 95% 12/05/2020 1:08 PM CDT Inhaled Oxygen Concentration - - Weight 88.5 kg (195 lb) 12/02/2020 10:26 AM CDT Height 167.6 cm (5' 6 ) 12/02/2020 10:26 AM CDT Body Mass Index 31.47 12/02/2020 10:26 AM CDT Plan of Treatment Not on file Medical Devices Implanted Type Area Gravity Manager Device Identifier Shelf Expiration Date Model / Serial / Lot Synthes 04.034.549s Expert 11mm 345mm Cannulated Proximal Bend Tibial Flute Nail - [id number] Implanted:Qty: 1 on 12/03/2020 by Phu Figueroa MD at [facility] Left: Tibia Synthes I 01/18/2029 04.034.549 S / / [id number] Synthes 04.005.520 5mm 4.3mm 30mm Lock Self Tap Blunt Tip 2 Lead Tibial T25 Full - [id number] Implanted:Qty: 2 on 12/03/2020 by Phu Figueroa MD at [facility] Left: Leg Synthes I 04.005.520 / / Synthes 04.005.534 5mm 4.3mm 44mm Lock Self Tap Blunt Tip 2 Lead Tibial T25 Full - [id number] Implanted:Qty: 2 on 12/03/2020 by Phu Figueroa MD at [facility] Left: Leg Synthes I 04.005.534 / / Synthes 04.005.522 5mm 4.3mm 32mm Lock Self Tap Blunt Tip 2 Lead Tibial T25 Full - [id number] Implanted:Qty: 1 on 12/03/2020 by Phu Figueroa MD at [facility] Left: Leg Synthes I 04.005.522 / / Synthes 475.925 2.5mm 440mm Elastic Nail Intramedullary Titanium Pediatric - [id number] Implanted:Qty: 1 on 12/03/2020 by Phu Figueroa MD at [facility] Left: Fibula Synthes I 475.925 / / Explanted Type Area Gravity Manager Device Identifier Shelf Expiration Date Model / Serial / Lot Synthes .005.536 5mm 4.3mm 46mm Lock Self Tap Blunt Tip 2 Lead Tibial T25 Full - [id number] Explanted:Qty: 1 on 12/03/2020 by Phu Figueroa MD at [facility] Left: Leg Synthes I 04.005.53 6 / / Procedures Procedure Name Priority Date/Time Associated Diagnosis Comments COLONOSCOPY IMAGES 02/04/2014 from Last 3 Months or Most Recently Relevant to Health Maintenance Results * COLONOSCOPY IMAGES (02/04/2014) Anatomical Region Laterality Modality Other Narrative 02/04/2014 Ordered by an unspecified provider. us Historical Provider GI PROCEDURE ORDERABLES F inal Result from Last 3 Months or Most Recently Relevant to Health Maintenance [place] [facility] CHOICE [facility] HMO/PPO Address: [address] [address] [place] [address] [place] Advance Directives For more information, please contact: [phone] * Full Code (Latest Code Status on File) Date Activated Date Inactivated Comments 12/02/2020 8:42 PM 12/05/2020 8:36 PM Care Teams Spray Crew Relationship Specialty Start Date End Date Iris Ravi MD PCP - General 08/02/11
--- OUTSIDE RECORDS SUMMARY | 2024-04-24 13:23 | XMS_ITS | Referral Summary ---
Author Organization [facility] Address [address] [place] [address] Care Team Providers Care Durability Technician Name Role Phone Unavailable Primary Care Provider Unavailabl e Source Comments [facility],non-owned Affiliates and Associated Physician Practices is amultiple site organization consisting of ambulatory clinics and hospital sitesin [place], [place], [place] and [place]. This disclosure is being madepursuant to the Care Everywhere program and may not contain all information available regarding this patient. Last updated 17.[facility] Allergies No known active allergies Medications * [...] fluticasone propionate (FLONASE) 50 MCG/ACT nasal spray [place] 2 sprays into each nostril once daily [...] Comments Blood Pressure 116/78 03/11/2019 9:10 AM SERVICE ATTENDANT Pulse 102 03/11/2019 9:10 AM SERVICE ATTENDANT Temperature 36.9 C (98.4 F) 03/11/2019 9:10 AM SERVICE ATTENDANT Respiratory Rate 17 03/11/2019 9:10 AM SERVICE ATTENDANT Oxygen Saturation 97% 03/11/2019 9:10 AM SERVICE ATTENDANT Inhaled Oxygen Concentration - - Weight 86.6 kg (191 lb) 03/11/2019 9:10 AM SERVICE ATTENDANT Height 167.6 cm (5' 6 ) 03/11/2019 9:10 AM SERVICE ATTENDANT Body Mass Index 30.83 03/11/2019 9:10 AM SERVICE ATTENDANT Plan of Treatment Not on file
--- OUTSIDE RECORDS SUMMARY | 2024-04-24 13:23 | XMS_ITS | Patient Health Summary ---
Author Organization [facility] Address [address] [place] [address] Care Team Providers Care Surveyor Geophysical Prospecting Name Role Phone Unavailable Primary Care Provider Unavailabl e Note from [facility],non-owned Affiliates and Associated Physician Practices is amultiple site organization consisting of ambulatory clinics and hospital sitesin [place], [place], [place] and [place]. This disclosure is being madepursuant to the Care Everywhere program and may not contain all information available regarding this patient. Last updated 17.[facility] Allergies No known active allergies Medications * Be aware that medications may not be up to date on this document. Alwaysverify current medications with the patient. * meloxicam (MOBIC) 15 MG tablet Take 15 mg by mouth once daily * sertraline (ZOLOFT) 100 MG tablet Take 100 mg by mouth once daily * atorvastatin (LIPITOR) 10 MG tablet Take 10 mg by mouth at bedtime * pantoprazole EC (PROTONIX) 40 MG tablet Take 40 mg by mouth once daily * azithromycin (ZITHROMAX) 250 MG tablet(Started 03/11/2019) Take 2 tabs today, then 1 tab daily for next 4 days * albuterol HFA (PROVENTIL;VENTOLIN;PROAIR) 108 (90 Base) MCG/ACT inhaler (Started 03/11/2019) [place] 2 puffs by mouth every 4 hours as needed for Wheezing * fluticasone propionate (FLONASE) 50 MCG/ACT nasal spray(Started 03/11/2019) [place] 2 sprays into each nostril once daily * methylPREDNISolone (MEDROL DOSEPAK) 4 MG tablet(Started 03/11/2019) Take by mouth as directed Social History Tobacco Use Types Packs/Day Years Used Date Smoking Tobacco: Former Cigarettes Q uit: 1998 Smokeless Tobacco: Never Sex and Gender Information Value Date Recorded Sex Assigned at Not on file Gender Identity Not on file Sexual Orientation Not on file Last Filed Vital Signs Vital Sign Reading Time Taken Comments Blood Pressure 116/78 03/11/2019 9:10 AM TRANSPORTATION PLANNING TECHNICIAN Pulse 102 03/11/2019 9:10 AM TRANSPORTATION PLANNING TECHNICIAN Temperature 36.9 C (98.4 F) 03/11/2019 9:10 AM TRANSPORTATION PLANNING TECHNICIAN Respiratory Rate 17 03/11/2019 9:10 AM TRANSPORTATION PLANNING TECHNICIAN Oxygen Saturation 97% 03/11/2019 9:10 AM TRANSPORTATION PLANNING TECHNICIAN Inhaled Oxygen Concentration - - Weight 86.6 kg (191 lb) 03/11/2019 9:10 AM TRANSPORTATION PLANNING TECHNICIAN Height 167.6 cm (5' 6 ) 03/11/2019 9:10 AM TRANSPORTATION PLANNING TECHNICIAN Body Mass Index 30.83 03/11/2019 9:10 AM TRANSPORTATION PLANNING TECHNICIAN Procedures * DERMATOPATHOLOGY(Performed 02/17/2015) Results * PATHOLOGY TISSUE FOR DERMATOLOGY (02/17/2015 12:00 AM TRANSPORTATION PLANNING TECHNICIAN) Result CASE: [id number] PATIENT: HANNAH ROBLENIN PATHOLOGIC DIAGNOSIS: A. 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 Above left brow: JUNCTIONAL MELANOCYTIC PROLIFERATION; PRESENT AT MARGIN (see microscopic description and comment) CLINICAL DATA: A: R/O HAK, SCC, BCC. Check margins. B: R/O lentigo. Check margins. GROSS DESCRIPTION: A: Received is one formalin filled container labeled with the patients name and designated left cheek. The specimen consists of a shave biopsy (2 pieces) measuring [id number]. Jar 0. B: Received is one formalin filled container labeled with the patients name and designated above left brow. The specimen consists of a shave biopsy measuring [id number]. Jar 0. MICROSCOPIC DESCRIPTION: SPECIMEN A The epidermis shows full thickness disorderly maturation of keratinocytes, mitoses at different levels, and dyskeratotic cells. There is overlying parakeratosis. The lesion extends to the margins of the specimen including the base of the biopsy. COMMENT: An invasive squamous cell carcinoma cannot be ruled out. SPECIMEN B Sections show a junctional melanocytic proliferation. There is a lentiginous proliferation of melanocytes between irregular nests. A MART-1/Melan-A stain shows focal areas of confluence of melanocytes but fails to demonstrate evidence of extension below the upper portion of the follicular epithelium. The dermis shows actinic elastosis. This lesion is present at the margin of the specimen. COMMENT: The lentiginous nature of the lesion is concerning, especially in the setting of sun damaged skin and because symmetry and circumscription cannot be evaluated as the lesion is present at the margin of the specimen. Therefore, a complete but conservative re-excision is recommended to evaluate this lesion in its entirety. Electronically signed out by Lian Larson M.D., PhD. 02/22/2015 2:05:22PM [facility] Comment: Performed at: Dermatopathology Laboratory [facility] - Department of Dermatology [address] [place] [address], [address] [place] [address] Phone number: [phone] FAX: [phone] 02/17/2015 02/18/2015 Maikel Palmer MD LAB - PATHOLOGY/CYTO LOGY ORDERABLES [facility] [address] [place] [address]. [address] [place] [address], [facility] [phone]
--- OUTSIDE RECORDS SUMMARY | 2024-04-24 13:23 | XMS_ITS | Clinical Summary ---
Author Organization [facility] Address [address] [place] [address] Care Team Providers Care Dental Laboratory Manager Name Role Phone Iris Ravi MD Primary Care Provider [phone] Allergies No known active allergies Medications atorvastatin [...] 11/19/2016,12/21/2015,12/16/2014 Influenza, Unspecified 12/06/2017,11/18/2016 ZOSTER Recombinant 03/11/2019 Surgical History Surgery Date Site/Laterality Comments KNEE SURGERY Knee Surgery - (Added by TW Conv) Medical History Medical History Date Comments Personal history of other me ntal and behavioral disorders History of depression - (Add ed by TW Conv) Anxiety Depression Family History Medical History Relation Name Comments Coronary artery disease Brother Fami ly history of coronary artery disease - (Added by TW Conv) Coronary artery disease Father Fami ly history of coronary artery disease - (Added by TW Conv) Prostate cancer Father Family histo ry of malignant neoplasm of prostate - (Added by TW Conv) Hypertension Mother Family history of hypertension - (Added by TW Conv) Diabetes Other 1 Family history of diabetes mellitus - (Added by TW Conv) Cancer Other 2 Family history of cancer - (Added by TW Conv) Hypertension Sister 1 Family history of hypertension - (Added by TW Conv) Coronary artery disease Sister 2 Fami ly history of coronary artery disease - (Added by TW Conv) Breast cancer Sister 3 Family history of malignant neoplasm of breast - (Added by TW Conv) Relation Name Status Comments Brother Father Mother Other 1 Other 2 Sister 1 Sister 2 Sister 3 Social History Tobacco Use Types Packs/Day Years [...] on file 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 Gender Identity Not on file Sexual Orientation Not on file 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 Industry Job Start Date Job End Date 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 Not on file Not on file Not on file Obstetrics History Last Filed Vital Signs Vital Sign Reading [...] 12/02/2020 10:26 AM CDT Plan of Treatment Health Maintenance Due Date Last Done Comments Breast Cancer Screening-Mammogram 1955 Depression Screening 1955 Hepatitis C Screening 1955 Osteoporosis Screening-Bone Density Scan 1955 DTaP/Tdap/Td Vaccine (1 - Tdap) 1968 Hepatitis B Screening 11/16/1975 Pneumococcal vaccine 65+ (1 of 1 - PCV) 11/16/2007 Zoster Vaccine (2 of 2) 05/06/2019 03/11/2019 Fall Risk Assessment 12/05/2021 12/05/2020 Well Visit 65+ 2022 Covid-19 Vaccine (4 - 2023-2 5 season) 2023 01/19/2021, 08/06/2020, 07/16/2020 Influenza Vaccine (#1) 2023 0, 11/12/2018, 12/06/2017, Additional history exists Colon Cancer Screening-Colonoscopy 02/05/2024 02/04/2014, 02/04/2014 Colon Cancer Screening-CT Colonography Discontinued 02/04/2014, 02/04/2014 Colon Cancer Screening-DNA Stool Discontinued 02/05/20 14, 02/04/2014 Colon Cancer Screening-FIT Discontinued 02/04/2014, Colon Cancer Screening-Sigmoidoscopy Discontinued 02/04/2014, 02/04/2014 Medical Devices Implanted Type Area Liquor Bridge Operator Helper Device Identifier Shelf Expiration Date Model / Serial / Lot Synthes 04.034.549s Expert 11mm 345mm Cannulated Proximal Bend Tibial Flute Nail - [id number] Implanted:Qty: 1 on 12/03/2020 by Phu Figueroa MD at [facility] Left: Tibia Synthes I 01/18/2029 04.034.549 S / / [id number] Synthes 04.005.520 5mm 4.3mm 30mm Lock Self Tap Blunt Tip 2 Lead Tibial T25 Full - [id number] Implanted:Qty: 2 on 12/03/2020 by Phu Figueroa MD at [facility] Left: Leg Synthes I 04.005.520 / / Synthes 04.005.534 5mm 4.3mm 44mm Lock Self Tap Blunt Tip 2 Lead Tibial T25 Full - [id number] Implanted:Qty: 2 on 12/03/2020 by Puh Figueroa MD at [facility] Left: Leg Synthes I 04.005.534 / / Synthes 04.005.522 5mm 4.3mm 32mm Lock Self Tap Blunt Tip 2 Lead Tibial T25 Full - [id number] Implanted:Qty: 1 on 12/03/2020 by Phu Figueroa MD at [facility] Left: Leg Synthes I 04.005.522 / / Synthes 475.925 2.5mm 440mm Elastic Nail Intramedullary Titanium Pediatric - [id number] Implanted:Qty: 1 on 12/03/2020 by Phu Figueroa MD at [facility] Left: Fibula Synthes I 475.925 / / Explanted Type Area Liquor Bridge Operator Helper Device Identifier Shelf Expiration Date Model / Serial / Lot Synthes 04.005.536 5mm 4.3mm 46mm Lock Self Tap Blunt Tip 2 Lead Tibial T25 Full - [id number] Explanted:Qty: 1 on 12/03/2020 by Phu Figueroa MD at [facility] Left: Leg Synthes I 04.005.53 6 / / Procedures Procedure Name Priority Date/Time Associated Diagnosis Comments COLONOSCOPY IMAGES 02/04/2014 from Last 3 Months or Most Recently Relevant to Health Maintenance Results * COLONOSCOPY IMAGES (02/04/2014) Anatomical Region Laterality Modality Other Narrative 02/04/2014 Ordered by an unspecified provider. us Historical Provider MD GI PROCEDURE ORDERABLES F inal Result from Last 3 Months or Most Recently Relevant to Health Maintenance Insurance [place] [facility] HMO/PPO Address: [address] [address] [place] [address] [place] For more information, please contact: [phone] * Full Code (Latest Code Status on File) Date Activated Date Inactivated Comments 12/02/2020 8:42 PM 12/05/2020 8:36 PM Care Teams Dental Laboratory Manager Relationship Specialty Start Date End Date Iris Ravi MD PCP - General 08/02/11
[2024-04-24 18:31] LABS: Add Urine Microscopic? YES; Appearance Urine Turbid (Clear); Bacteria Urine 4+ /hpf; Bilirubin Urine Negative (Negative); Blood Urine 2+ (Negative); Color Urine Yellow (Yellow); Glucose Urine UA Negative (Negative); Ketones Urine Trace mg/dL (Negative); Leukocyte Esterase Ur 3+ LEU/UL (Negative); Nitrate Urine Positive (Negative); Non Pathogenic Casts 0-2; Protein Urine 1+ mg/dL (Negative); RBC Urine 21-50 /hpf (0-2); Specific Grav Ur 1.021 (1.001-1.035); Squamous Epithelial Cell Urine Occasional /hpf (Few); WBC Urine >100 /hpf (0-3); pH Urine 5.5 (5.0-9.0)
== END 2024-04-24 11:55 | disposition home or self-care (01) ==
LOC: ANHBWCLAB 11:55
PROVIDERS: PCP Nurse Practitioner Adult Health; Visit Provider Nurse Practitioner Adult Health
DX: R39.9 Unspecified symptoms and signs involving the genitourinary system (principal)
CPT/HCPCS: 81001; 87077; 87086; 87186

== ENCOUNTER 2024-04-29 12:09 | Outpatient (CLI) | payer MEDICARE, SELFPAY ==
--- NOTE | ~2024-04-29 | MM_ITS ---
EXAMINATION: MM screening harika BI w inge HISTORY: Screening mammogram, family history of breast cancer in her sister. TECHNIQUE: Craniocaudal and mediolateral oblique 3-D tomosynthesis images were obtained and synthetic 2-D images were generated. CAD analysis was submitted and interpreted. COMPARISON: 02/27/2023, 11/14/2021, 06/30/2020 BREAST PARENCHYMAL COMPOSITION:Dense: The breasts are heterogeneously dense, which may obscure small masses. FINDINGS: No suspicious mass, calcification, or architectural distortion are identified in either myah ast to suggest malignancy. There has been no suspicious interval change. IMPRESSION: No mammographic evidence of malignancy. Recommend routine screening mammography in one year. BI-RADS Category 1: Negative Reviewed, dictated and finalized at location .
== END 2024-04-29 12:10 | disposition home or self-care (01) ==
LOC: MICIMG 12:10
PROVIDERS: PCP Nurse Practitioner Adult Health; Visit Provider Nurse Practitioner Adult Health
DX: Z12.31 Encounter for screening mammogram for malignant neoplasm of breast (principal)
CPT/HCPCS: 77063; 77067

== ENCOUNTER 2024-05-05 21:16 | Observation (INO) | payer MEDICARE, SELFPAY ==
[2024-05-05] VITALS (13 sets, daily range): BP systolic 133–154; BP diastolic 71–89; PULSE 61–86; RESP 14–20; TEMP 36.6; O2SAT 95–100
--- NOTE | ~2024-05-05 | MR_ITS ---
MR brain/brain stem wo/w con Ordering provider: Shiva Ramon MD History: 68 years Female with . tia . Comparison: CT head performed yesterday. Technique: MRI brain was performed without and with contrast. 17 cc ProHance was given IV. FINDINGS: BONES: Normal. CRANIOCERVICAL JUNCTION: normal. PITUITARY: Normal. MAJOR INTRACRANIAL VESSELS: Normal flow void. OPTIC NERVES AND CRANIAL NERVES VII AND VIII COMPLEXES: Grossly normal. BRAIN PARENCHYMA AND CSF SPACES: Mild nonspecific T2 white matter hyperintensities are seen in a rodrigo ateral periventricular and deep white matter distribution which are likely related to chronic ischemi c small vessel disease. Mild diffuse cortical atrophy. Old lacunar infarct in the left and the right basal ganglia. Choroidal fissure cysts are not excluded. Lacunar infarct in the right cerebellar hem isphere. The brainstem and cerebellum are normal. No acute or chronic intracranial hemorrhage. No ext ra axial fluid collections. Diffusion weighted and ADC mapping images reveal no recent ischemia. No m idline shift or mass effect. PARANASAL SINUSES: Bilateral ethmoid sinus disease. MASTOIDS: Left mastoid air cells effusion. SUPERFICIAL/SURROUNDING SOFT TISSUES: Normal. IMPRESSION: 1. No evidence of acute infarct or hemorrhage. 2. Mild brain atrophy with deep white matter ischemic changes. 3. Old Lacunar infarcts in the basal ganglia. 4. No enhancing lesions seen. Reviewed, dictated and finalized at location A.
--- NOTE | ~2024-05-05 | CT_ITS ---
History: History of a left sided facial droop (now resolved) PROCEDURE: CT head without contrast. COMPARISON: None TECHNIQUE: Axial imaging of the head performed from the skull base to the vertex without IV contrast. Sagittal a nd coronal reformations obtained. DLP: 605 mGy-cm FINDINGS: The ventricles are normal in size, shape and position. There is no mass, mass effect or midline shift. There is no abnormal extra-axial fluid collection or intracranial hemorrhage. Visualized paranasal sinuses are clear. The mastoid air cells are well aerated. No acute displaced fractures within the overlying cranium. Impression: No acute intracranial hemorrhage or suspicious mass effect. Reviewed, dictated and finalized at location A. Impression: No acute intracranial hemorrhage or suspicious mass effect.
--- NOTE | ~2024-05-05 | XR_ITS ---
CHEST RADIOGRAPH CLINICAL HISTORY: Stroke like symptoms SOFTWARE PROJECT LEAD . COMPARISON: 12/09/2019 TECHNIQUE: Single portable view of the chest. FINDINGS The cardiomediastinal silhouette is unremarkable. Interstitial thickening detected bilaterally, likely chronic. These findings demonstrate progression since 2020 examination. No focal infiltrate or effusion. IMPRESSION: Chronic interstitial change, without focal infiltrate or effusion. Reviewed, dictated and finalized at location A.
--- NOTE | ~2024-05-05 | CT_ITS ---
CTA brain carotid Ordering provider: Shiva Ramon MD History: Transient left facial droop Comparison: None. Reference is made to a carotid duplex ultrasound, performed 11/14/2021 Technique: CT angiogram head and neck was performed following timed intravenous injection of contrast . Thin slice axial images and reformatted coronal images were obtained. Three dimensional reformatted images of the brain were also obtained using a [employer] workstation. DLP: 1082 mGy-cm FINDINGS: HEAD: --ANTERIOR AND MIDDLE CEREBRAL ARTERIES AND BRANCHES: Normal caliber and contour. --INTERNAL CAROTID ARTERIES: Mild atheromatous disease but no significant stenosis. No occlusion. --BASILAR ARTERY AND BRANCHES: Normal caliber and contour. No significant atheromatous disease. --POSTERIOR CEREBRAL ARTERIES: Normal caliber and contour --POSTERIOR COMMUNICATING ARTERIES: Not visualized which is probably related to congenital absence or small size. --ANEURYSM: None visualized. --BRAIN: Please refer to report of CT head performed the same day. --BONES AND SUPERFICIAL SOFT TISSUES: Please refer to report of CT head performed the same day. --PARANASAL SINUSES AND MASTOIDS: Please refer to report of CT head done the same day. NECK: --RIGHT CERVICAL CAROTID SYSTEM: Mild atheromatous disease of the carotid bulb and proximal internal carotid artery without significant stenosis. Percent stenosis per NASCET criteria is 0% No carotid d issection. --LEFT CERVICAL CAROTID SYSTEM: Mild atheromatous disease of the carotid bulb and proximal internal c arotid artery without significant stenosis. Percent stenosis per NASCET criteria is 0%. No carotid d issection. --VERTEBRAL ARTERIES: Diminutive in caliber and unremarkable in contour. --VISUALIZED AORTIC ARCH AND BRANCHING VESSELS: Mild atheromatous disease but no significant stenosis . Indeterminate findings within the right main pulmonary artery, likely artifactual for which follow-up examination with a CTA of the chest is recommended (following excretion of the current contrast bolu s). --SOFT TISSUES: Unremarkable. --CERVICAL SPINE: Age appropriate degenerative changes. Anterior fixation hardware at the levels of C 4 through C7. IMPRESSION: Indeterminate findings within the right main pulmonary artery, likely artifactual for which follow-up examination with a CTA of the chest is recommended (following excretion of the current contrast bolu s). Otherwise unremarkable CTA head and neck. Percent stenosis per NASCET criteria is 0% Reviewed, dictated and finalized at location A. IMPRESSION: Indeterminate findings within the right main pulmonary artery, likely artifactu al for which follow-up examination with a CTA of the chest is recommended (foll owing excretion of the current contrast bolus). Otherwise unremarkable CTA head and neck. Percent stenosis per NASCET criteria is 0%
--- OUTSIDE RECORDS SUMMARY | 2024-05-05 21:22 | XMS_ITS | Referral Summary ---
Author Organization [facility] Address [address] [place] [address] Care Team Providers Care Booster Pump Operator Name Role Phone Unavailable Primary Care Provider Unavailabl e Source Comments [facility],non-owned Affiliates and Associated Physician Practices is amultiple site organization consisting of ambulatory clinics and hospital sitesin [place], [place], [place] and [place]. This disclosure is being madepursuant to the Care Everywhere program and may not contain all information available regarding this patient. Last updated 17.[facility] Allergies No known active allergies Medications * [...] fluticasone propionate (FLONASE) 50 MCG/ACT nasal spray [place] 2 sprays into each nostril once daily [...] Comments Blood Pressure 116/78 03/11/2019 9:10 AM MILITARY SCIENCE TEACHER Pulse 102 03/11/2019 9:10 AM MILITARY SCIENCE TEACHER Temperature 36.9 C (98.4 F) 03/11/2019 9:10 AM MILITARY SCIENCE TEACHER Respiratory Rate 17 03/11/2019 9:10 AM MILITARY SCIENCE TEACHER Oxygen Saturation 97% 03/11/2019 9:10 AM MILITARY SCIENCE TEACHER Inhaled Oxygen Concentration - - Weight 86.6 kg (191 lb) 03/11/2019 9:10 AM MILITARY SCIENCE TEACHER Height 167.6 cm (5' 6 ) 03/11/2019 9:10 AM MILITARY SCIENCE TEACHER Body Mass Index 30.83 03/11/2019 9:10 AM MILITARY SCIENCE TEACHER Plan of Treatment Not on file
--- OUTSIDE RECORDS SUMMARY | 2024-05-05 21:22 | XMS_ITS | Data Portability ---
Author Organization [place] - [facility], Main Office Address [address] [place] [address] Care Team Providers Care Head Athletic Trainer/Strength Coach Name Role Phone NIESHA MESSINA Primary Care Provider [phone] HOPNIESHA GIRALDO Referring Provider [phone] Assessment Encounter Date Assessment Date Assessment LastModified [...] She voiced understanding of plan and agrees [email or web address] Not available 09/05/2022 11:10:12 2022 2022 Cscope- 2015- normal- repeat 2025 Mammogram-ordered DEXA- 10/2021- osteopenia DEANGELO Butcher Call office if worse, ER if life-threatening illness RTC 4 months She voiced understanding of plan and agrees [email or web address] Not available 2022 15:53:30 12/11/2022 12/11/2022 Impression: [...] more than half the time spent in hkvd-nx-aoab care. Not available 12/11/2022 16:35:10 01/22/2023 01/22/2023 [...] in the right knee. She still has jlgc-bs-sywtbyju pain with patellofemoral grind and inhibition testing. 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 Lab glycohemogl obin, total, blood 2022 023 [facility] (Lab), [address] [place], [address], 19:20:31 CMP, serum or plasma 2022 023 [facility] (Lab), [address] [place], [address], 3 19:50:12 CBC w/ auto diff 2022 023 [facility] (Lab), [address] [place], [address], 3 18:43:58 lipid panel, serum 2022 023 [facility] (Lab), [address] [place], [address], 3 19:50:17 TSH, serum or plasma 2022 023 [facility] (Lab), [address] [place], [address], 3 20:07:26 vitamin D, 25-hydroxy, total, serum [address] (Lab), [address] [place], [address], 3 11:42:40 vitamin B12 + folate, serum or blood [address] (Lab), [address] [place], [address], 3 11:42:40 Referral orthopedic surgeon referral - angelica shawsavannah in right knee 2022 023 KAYLEEN Ann MD, [address], [facility], [place], [address], 3 16:36:07 Procedures None recorded. Surgeries None recorded. Imaging XR, knee 2022 023 [facility] [place], [address] [facility] [address], [place], [address], 3 17:10:31 MAMMO, screening, bilateral 2022 023 [email or web address] [facility], [address], [address] [address], [place], [address], 4 12:16:23 Medication Orders atorvastati n 40 mg tablet 2023 024 [facility] #[id number], [address], [place], [place], [id number], 4 14:20:09 albuterol sulfate HFA 90 mcg/actuati on aerosol inhaler 2023 024 [facility] #39528, [address], [place], [place], [id number], 4 14:20:11 famotidine 40 mg tablet 2023 024 [facility] #60843, [address], [place], [place], [id number], 4 14:20:16 montelukast 10 mg tablet 2023 024 [facility] #45136, [address], [place], [place], [id number], 4 14:20:22 pantoprazol e 40 mg tablet,heather yed release 2023 024 [facility] #18895, [address], [place], [place], [id number], 4 14:20:21 sertraline 100 mg tablet 2023 024 [facility] #74476, [address], [place], [place], [id number], 4 14:20:21 meloxicam 15 mg tablet [address] [facility] #00684, [address], [place], [place], [id number], 3 07:27:40 meloxicam 15 mg tablet [address] [facility] #95910, [address], [place], [place], [id number], 3 17:10:31 atorvastati n 20 mg tablet 2022 023 [email or web address] [facility] #43650, [address], [place], [place], [id number], 3 15:41:31 famotidine 40 mg tablet 2022 023 [facility] #89966, [address], [place], [place], [id number], 3 11:06:10 montelukast 10 mg tablet 2022 023 [facility] #86469, [address], [place], [place], [id number], 3 11:06:12 sertraline 100 mg tablet 2022 023 [facility] #80622, [address], [place], [place], [id number], 3 11:06:11 Patient TargetsNo targets recorded. Patient Instructions Encounter Date Encounter Id Patient Instructions Last Modified By Organization Details Last Modified Time 09/05/2022 [id number] Due to the COVID-19 (Novel Coronavirus) pandemic, it is within this context (and with the understanding that this method of patient encounter is in the patient s best interest as well as the health and safety of other patients and the public) that [facility] is being provided for this patient encounter rather than a ozrf-tl-mbsa visit. This patient encounter is appropriate at [...] if listed, were provided by the patient. [email or web address] Not available 09/05/2022 11:06:24 Reason for Referral [...] 5.4 x10'3 /uL 4.2-10 .8 Not Available [facility] (Lab) [address] [place], [address], 2022 18:43:58 11/16/19 23 2022 CBC/C OMPLE TE BLD COUNT W/DIF F red blood cells 3.84 x10'6 /uL 3.80-5 .20 Not Available [facility] (Lab) [address] [place], [address], 2022 18:43:58 11/16/19 23 2022 CBC/C OMPLE TE BLD COUNT W/DIF F hemoglobin 12.5 g/dL 12.0-1 5.6 Not Available [facility] (Lab) [address] [place], [address], 2022 18:43:58 11/16/1911/15/2022 CBC/C OMPLE TE BLD COUNT W/DIF F hematocrit 38.1 % 35.7-4 5.7 Not Available [facility] (Lab) [address] [place], [address], 2022 18:43:58 11/16/1911/15/2022 CBC/C OMPLE TE BLD COUNT W/DIF F mean red cell volume 99.2 fL 82.0-9 9.0 high Not Available [facility] (Lab) [address] [place], [address], 2022 18:43:58 11/16/19 23 2022 CBC/C OMPLE TE BLD COUNT W/DIF F mean red cell hemoglobin 32.6 pg 27.0-3 3.0 Not Available [facility] (Lab) [address] [facility] [place], [address], 2022 18:43:58 11/16/1911/15/2022 CBC/C OMPLE TE BLD COUNT W/DIF F mean RBC HGB concentratio n 32.8 g/dL 31.0-3 6.0 Not Available [facility] (Lab) [address] [place], [address], 2022 18:43:58 11/16/19 23 2022 CBC/C OMPLE TE BLD COUNT W/DIF F red cell distribution width 12.2 % 11.8-1 5.5 Not Available [facility] (Lab) [address] [place], [address], 2022 18:43:58 11/16/1911/15/2022 CBC/C OMPLE TE BLD COUNT W/DIF F platelets 287 x10'3 /uL 150-40 0 Not Available [facility] (Lab) [address] [place], [address], 2022 18:43:58 11/16/1911/15/2022 CBC/C OMPLE TE BLD COUNT W/DIF F mean platelet volume 10.2 fL 9.0-12 .4 Not Available [facility] (Lab) [address] [place], [address], 2022 18:43:58 11/16/19 23 2022 CBC/C OMPLE TE BLD COUNT W/DIF F neutrophils 58.8 % 39.0-7 2.0 Not Available [facility] (Lab) [address] [place], [address], 2022 18:43:58 11/16/1911/15/2022 CBC/C OMPLE TE BLD COUNT W/DIF F lymphocytes 32.8 % 16.0-4 7.0 Not Available [facility] (Lab) [address] [place], [address], 2022 18:43:58 11/16/1911/15/2022 CBC/C OMPLE TE BLD COUNT W/DIF F monocytes 6.9 % 5.0-12 .0 Not Available [facility] (Lab) [address] [place], [address], 2022 18:43:58 11/16/1911/15/2022 CBC/C OMPLE TE BLD COUNT W/DIF F eosinophils 0.6 % 1.0-7. 0 low Not Available [facility] (Lab) [address] [place], [address], 2022 18:43:58 11/16/1911/15/2022 CBC/C OMPLE TE BLD COUNT W/DIF F basophils 0.7 % 0.0-2. 0 Not Available [facility] (Lab) [address] [place], [address], 2022 18:43:58 11/16/1911/15/2022 CBC/C OMPLE TE BLD COUNT W/DIF F immature granulocytes 0.2 % 0.00-0 .50 Not Available [facility] (Lab) [address] [place], [address], 2022 18:43:58 11/16/1911/15/2022 CBC/C OMPLE TE BLD COUNT W/DIF F neutrophils, absolute count 3.16 x10'3 /uL 1.5-8. 0 Not Available [facility] (Lab) [address] [place], [address], 2022 18:43:58 11/16/1911/15/2022 CBC/C OMPLE TE BLD COUNT W/DIF F lymphocytes, absolute count 1.76 x10'3 /uL 1.07-3 .43 Not Available [facility] (Lab) [address] [place], [address], 2022 18:43:58 11/16/1911/15/2022 CBC/C OMPLE TE BLD COUNT W/DIF F monocytes, absolute count 0.37 x10'3 /uL 0.29-0 .99 Not Available [facility] (Lab) [address] [place], [address], 2022 18:43:58 11/16/1911/15/2022 CBC/C OMPLE TE BLD COUNT W/DIF F eosinophils, absolute count 0.03 x10'3 /uL 0.02-0 .53 Not Available [facility] (Lab) [address] [place], [address], 2022 18:43:58 11/16/1911/15/2022 CBC/C OMPLE TE BLD COUNT W/DIF F basophils, absolute count 0.04 x10'3 /uL 0.01-0 .08 Not Available [facility] (Lab) [address] [place], [address], 2022 18:43:58 11/16/1911/15/2022 CBC/C OMPLE TE BLD COUNT W/DIF F immature granulocytes ,absolute 0.01 x10'3 /uL 0.00-0 .05 Not Available [facility] (Lab) [address] [place], [address], 2022 18:43:58 11/16/1911/15/2022 CBC/C OMPLE TE BLD COUNT W/DIF F nucleated red blood cells 0.0 % -0 Not Available [facility] (Lab) [address] [place], [address], 2022 18:43:58 11/16/19 23 2022 CBC/C OMPLE TE BLD COUNT W/DIF F NRBC# 0.00 x10'3 /uL Not Available [facility] (Lab) [address] [place], [address], 2022 18:43:58 11/16/1911/15/2022 HEMOG LOBIN A1C HA1C 5.6 % 4.0-6. 0 Diabe sanjuanita Scree shaina Crite candy: <5.7% Consi stent with absen ce of diabe sanjuanita 5.7-6 .4% Consi stent with incre ased risk for diabe sanjuanita (pred iabet es) >OR=6 .5% Consi stent with diabe sanjuanita REFER ENCE: Diabe sanjuanita Care 2016, 39(Antunez ppl.1 ):s13 -s22 Not Available [facility] (Lab) [address] [place], [address], 2022 19:20:31 11/16/1911/15/2022 VITAM IN D 25-HY DROXY [id number] 70.1 NG/mL 30-100 Vitam in D Statu s: Defic ient: <20 ng/mL Insuf ficie nt: 20-29 ng/mL Suffi cient : 30-10 0 ng/mL Not Available [facility] (Lab) [address] [place], [address], 2022 19:48:16 11/16/1911/15/2022 COMPR EHENS HEATHER METAB OLIC PANEL sodium 136 mmol/ L 137-14 5 low Not Available [facility] (Lab) [address] [place], [address], 2022 19:50:12 11/16/19 23 2022 COMPR EHENS HEATHER METAB OLIC PANEL potassium 4.6 mmol/ L 3.5-5. 1 Not Available [facility] (Lab) [address] [place], [address], 2022 19:50:12 11/16/19 23 2022 COMPR EHENS HEATHER METAB OLIC PANEL chloride 100 mmol/ L 98-107 Not Available [facility] (Lab) [address] [place], [address], 2022 19:50:12 11/16/19 23 2022 COMPR EHENS HEATHER METAB OLIC PANEL carbon dioxide 27 mmol/ L 22-30 Not Available [facility] (Lab) [address] [place], [address], 2022 19:50:12 11/16/19 23 2022 COMPR EHENS HEATHER METAB OLIC PANEL anion gap 13.6 mmol/ L 14-22 low Not Available [facility] (Lab) [address] [place], [address], 2022 19:50:12 11/16/19 23 2022 COMPR EHENS HEATHER METAB OLIC PANEL glucose 99 mg/dL 70-99 Not Available [facility] (Lab) [address] [place], [address], 2022 19:50:12 11/16/19 23 2022 COMPR EHENS HEATHER METAB OLIC PANEL BUN 19 mg/dL 8-19 Not Available [facility] (Lab) [address] [place], [address], 2022 19:50:12 11/16/19 23 2022 COMPR EHENS HEATHER METAB OLIC PANEL creatinine 0.79 mg/dL 0.66-1 .25 Not Available [facility] (Lab) [address] [place], [address], 2022 19:50:12 11/16/1911/15/2022 COMPR EHENS HEATHER METAB OLIC PANEL GFR >60 Refer ence Range : [place] ge GFR Healt hy Adult : >60 mL/mi n/1.7 3 m2 Chron ic Kidne y Disea se: 15-60 mL/mi n/1.7 3 m2 Kidne y Failu re: <15/m L/min /1.73 m2 www.n iddk. nih.g ov The MDRD study equat ion has not been valid ated in child seveor <18 years of age; pregn ant women [...] calcu lator is avail able on the [facility] websi te: https ://delmy bennett.cuba nunez/pr ofess ional s/kdo qi/gf r_cal culat or Not Available [facility] (Lab) [address] [place], [address], 2022 19:50:12 11/16/1911/15/2022 COMPR EHENS HEATHER METAB OLIC PANEL alkaline phosphatase 81 U/L 38-126 Not Available [facility] (Lab) [address] [place], [address], 2022 19:50:12 11/16/1911/15/2022 COMPR EHENS HEATHER METAB OLIC PANEL alanine aminotransfe rase 27 U/L 0-35 Not Available [facility] (Lab) [address] [place], [address], 2022 19:50:12 11/16/19 23 2022 COMPR EHENS HEATHER METAB OLIC PANEL aspartate aminotransfe rase 33 U/L 15-37 Not Available [facility] (Lab) [address] [place], [address], 2022 19:50:12 11/16/19 23 2022 COMPR EHENS HEATHER METAB OLIC PANEL bilirubin, total 0.60 mg/dL 0.20-1 .30 Not Available [facility] (Lab) [address] [place], [address], 2022 19:50:12 11/16/19 23 2022 COMPR EHENS HEATHER METAB OLIC PANEL calcium 10.1 mg/dL 8.4-10 .2 Not Available [facility] (Lab) [address] [place], [address], 2022 19:50:12 11/16/19 23 2022 COMPR EHENS HEATHER METAB OLIC PANEL total protein 7.5 g/dL 6.3-8. 2 Not Available [facility] (Lab) [address] [place], [address], 2022 19:50:12 11/16/1911/15/2022 COMPR EHENS HEATHER METAB OLIC PANEL albumin 4.9 g/dL 3.0-4. 4 high Not Available [facility] (Lab) [address] [place], [address], 2022 19:50:12 11/16/19 23 2022 COMPR EHENS HEATHER METAB OLIC PANEL globulin 2.6 g/dL 2.6-4. 2 Not Available [facility] (Lab) [address] [place], [address], 2022 19:50:12 11/16/1911/15/2022 COMPR EHENS HEATHER METAB OLIC PANEL A/G ratio 1.9 ratio 1.0-2. 0 Not Available [facility] (Lab) [address] [place], [address], 2022 19:50:12 11/16/1911/15/2022 LIPID PANEL cholesterol 233 mg/dL 140-19 9 high NIH XAVIER NSUS RECOM MENDA TION FOR OLY STERO L: ADULT CHILD LOW RISK: <200 <170 BORDE RLINE : <200- 239 ----- HIGH RISK: >240 >200 Not Available [facility] (Lab) [address] [place], [address], 2022 19:50:17 11/16/1911/15/2022 LIPID PANEL triglyceride s 212 mg/dL 0-150 high NIH XAVIER NSUS REPOR T RECOM MENDA TION FOR TRIGL YCERI BRIGID: ADULT CHILD LOW RISK: <150 ----- BODER LINE: 150-1 99 ----- HIGH RISK: >200 ----- Not Available [facility] (Lab) [address] [place], [address], 2022 19:50:17 11/16/1911/15/2022 LIPID PANEL HDL cholesterol 66 mg/dL 40- Not Available [facility] (Lab) [address] [place], [address], 2022 19:50:17 11/16/1911/15/2022 LIPID PANEL LDL cholesterol, [...] WILL NOT BE REPOR TRE. Not Available [facility] (Lab) [address] [place], [address], 2022 19:50:17 11/16/19 23 2022 TSH W/REF CELY FT4 TSH with reflex free T4 1.070 uIU/m L 0.465- 4.680 Not Available [facility] (Lab) [address] [place], [address], 2022 20:07:25 11/16/19 23 2022 VITAM IN B12 (WALLY SUNIL ) vb12 575 pg/mL 239-93 1 Not Available [facility] (Lab) [address] [place], [address], 2022 20:31:52 11/16/19 23 2022 FOLAT E, SERUM /PLAS MA folate >20.0 NG/mL 2.76-2 0.0 Not Available [facility] (Lab) [address] [place], [address], 2022 20:31:57 02/23/19 24 02/23/2023 COMPR EHENS HEATHER METAB OLIC PANEL sodium 143 mmol/ L 137-14 5 Not Available [facility] (Lab) [address] [place], [address], 02/23/2023 19:11:39 02/23/19 24 02/23/2023 COMPR EHENS HEATHER METAB OLIC PANEL potassium 4.3 mmol/ L 3.5-5. 1 Not Available [facility] (Lab) [address] [place], [address], 02/23/2023 19:11:39 01/05/20 24 02/23/2023 COMPR EHENS HEATHER METAB OLIC PANEL chloride 105 mmol/ L 98-107 Not Available [facility] (Lab) [address] [place], [address], 02/23/2023 19:11:39 02/23/19 24 02/23/2023 COMPR EHENS HEATHER METAB OLIC PANEL carbon dioxide 29 mmol/ L 22-30 Not Available [facility] (Lab) [address] [place], [address], 02/23/2023 19:11:39 02/23/19 24 02/23/2023 COMPR EHENS HEATHER METAB OLIC PANEL anion gap 13.3 mmol/ L 14-22 low Not Available [facility] (Lab) [address] [place], [address], 02/23/2023 19:11:39 02/23/19 24 02/23/2023 COMPR EHENS HEATHER METAB OLIC PANEL glucose 107 mg/dL 70-99 high Not Available [facility] (Lab) [address] [place], [address], 02/23/2023 19:11:39 02/23/19 24 02/23/2023 COMPR EHENS HEATHER METAB OLIC PANEL BUN 16 mg/dL 8-19 Not Available [facility] (Lab) [address] [place], [address], 02/23/2023 19:11:39 02/23/19 24 02/23/2023 COMPR EHENS HEATHER METAB OLIC PANEL creatinine 0.84 mg/dL 0.66-1 .25 Not Available [facility] (Lab) [address] [place], [address], 02/23/2023 19:11:39 02/23/19 24 02/23/2023 COMPR EHENS HEATHER METAB OLIC PANEL GFR >60 Refer ence Range : [place] ge GFR Healt hy Adult : >60 [...] calcu lator is avail able on the [facility] websi te: https ://delmy w.kid donald.o rg/pr ofess ional s/kdo qi/gf r_cal culat or Not Available [facility] (Lab) [address] [place], [address], 02/23/2023 19:11:39 02/23/19 24 02/23/2023 COMPR EHENS HEATHER METAB OLIC PANEL alkaline phosphatase 63 U/L 38-126 Not Available [facility] (Lab) [address] [place], [address], 02/23/2023 19:11:39 02/23/19 24 02/23/2023 COMPR EHENS HEATHER METAB OLIC PANEL alanine aminotransfe rase 22 U/L 0-35 Not Available [facility] (Lab) [address] [place], [address], 02/23/2023 19:11:39 02/23/19 24 02/23/2023 COMPR EHENS HEATHER METAB OLIC PANEL aspartate aminotransfe rase 31 U/L 15-37 Not Available [facility] (Lab) [address] [place], [address], 02/23/2023 19:11:39 02/23/19 24 02/23/2023 COMPR EHENS HEATHER METAB OLIC PANEL bilirubin, total 0.50 mg/dL 0.20-1 .30 Not Available [facility] (Lab) [address] [place], [address], 02/23/2023 19:11:39 02/23/19 24 02/23/2023 COMPR EHENS HEATHER METAB OLIC PANEL calcium 9.6 mg/dL 8.4-10 .2 Not Available [facility] (Lab) [address] [place], [address], 02/23/2023 19:11:39 02/23/19 24 02/23/2023 COMPR EHENS HEATHER METAB OLIC PANEL total protein 7.5 g/dL 6.3-8. 2 Not Available [facility] (Lab) [address] [place], [address], 02/23/2023 19:11:39 02/23/19 24 02/23/2023 COMPR EHENS HEATHER METAB OLIC PANEL albumin 4.7 g/dL 3.0-4. 4 high Not Available [facility] (Lab) [address] [place], [address], 02/23/2023 19:11:39 02/23/19 24 02/23/2023 COMPR EHENS HEATHER METAB OLIC PANEL globulin 2.8 g/dL 2.6-4. 2 Not Available [facility] (Lab) [address] [place], [address], 02/23/2023 19:11:39 02/23/19 24 02/23/2023 COMPR EHENS HEATHER METAB OLIC PANEL A/G ratio 1.7 ratio 1.0-2. 0 Not Available [facility] (Lab) [address] [place], [address], 02/23/2023 19:11:39 02/23/19 24 02/23/2023 LIPID PANEL cholesterol 190 mg/dL 140-19 9 NIH XAVIER NSUS RECOM MENDA TION FOR OLY STERO L: ADULT CHILD LOW RISK: <200 <170 BORDE RLINE : <200- 239 ----- HIGH RISK: >240 >200 Not Available [facility] (Lab) [address] [place], [address], 02/23/2023 19:11:45 02/23/1902/23/2023 LIPID PANEL triglyceride s 265 mg/dL 0-150 high NIH XAVIER NSUS REPOR T RECOM MENDA TION FOR TRIGL YCERI BRIGID: ADULT CHILD LOW RISK: <150 ----- BODER LINE: 150-1 99 ----- HIGH RISK: >200 ----- Not Available [facility] (Lab) [address] [place], [address], 02/23/2023 19:11:45 02/23/19 24 02/23/2023 LIPID PANEL HDL cholesterol 70 mg/dL 40- Not Available [facility] (Lab) [address] [place], [address], 02/23/2023 19:11:45 02/23/19 24 02/23/2023 LIPID PANEL [...] WILL NOT BE REPOR TRE. Not Available [facility] (Lab) [address] [place], [address], 02/23/2023 19:11:45 04/13/19 24 04/13/2023 CBC/C OMPLE TE BLD COUNT W/DIF F white blood cells 7.9 x10'3 /uL 4.2-10 .8 Not Available [facility] (Lab) [address] [place], [address], 04/13/2023 13:59:55 04/13/19 24 04/13/2023 CBC/C OMPLE TE BLD COUNT W/DIF F red blood cells 3.66 x10'6 /uL 3.80-5 .20 low Not Available [facility] (Lab) [address] [place], [address], 04/13/2023 13:59:55 04/13/19 24 04/13/2023 CBC/C OMPLE TE BLD COUNT W/DIF F hemoglobin 11.9 g/dL 12.0-1 5.6 low Not Available [facility] (Lab) [address] [place], [address], 04/13/2023 13:59:55 04/13/19 24 04/13/2023 CBC/C OMPLE TE BLD COUNT W/DIF F hematocrit 35.5 % 35.7-4 5.7 low Not Available [facility] (Lab) [address] [place], [address], 04/13/2023 13:59:55 04/13/19 24 04/13/2023 CBC/C OMPLE TE BLD COUNT W/DIF F mean red cell volume 97.0 fL 82.0-9 9.0 Not Available [facility] (Lab) [address] [place], [address], 04/13/2023 13:59:55 04/13/19 24 04/13/2023 CBC/C OMPLE TE BLD COUNT W/DIF F mean red cell hemoglobin 32.5 pg 27.0-3 3.0 Not Available [facility] (Lab) [address] [place], [address], 04/13/2023 13:59:55 04/13/19 24 04/13/2023 CBC/C OMPLE TE BLD COUNT W/DIF F mean RBC HGB concentratio n 33.5 g/dL 31.0-3 6.0 Not Available [facility] (Lab) [address] [place], [address], 04/13/2023 13:59:55 04/13/19 24 04/13/2023 CBC/C OMPLE TE BLD COUNT W/DIF F red cell distribution width 12.3 % 11.8-1 5.5 Not Available [facility] (Lab) [address] [place], [address], 04/13/2023 13:59:55 04/13/19 24 04/13/2023 CBC/C OMPLE TE BLD COUNT W/DIF F platelets 284 x10'3 /uL 150-40 0 Not Available [facility] (Lab) [address] [place], [address], 04/13/2023 13:59:55 04/13/19 24 04/13/2023 CBC/C OMPLE TE BLD COUNT W/DIF F mean platelet volume 9.6 fL 9.0-12 .4 Not Available [facility] (Lab) [address] [place], [address], 04/13/2023 13:59:55 04/13/19 24 04/13/2023 CBC/C OMPLE TE BLD COUNT W/DIF F neutrophils 69.9 % 39.0-7 2.0 Not Available [facility] (Lab) [address] [place], [address], 04/13/2023 13:59:55 04/13/19 24 04/13/2023 CBC/C OMPLE TE BLD COUNT W/DIF F lymphocytes 20.9 % 16.0-4 7.0 Not Available [facility] [place] (Lab) [address] [place], [address], 04/13/2023 13:59:55 04/13/19 24 04/13/2023 CBC/C OMPLE TE BLD COUNT W/DIF F monocytes 8.1 % 5.0-12 .0 Not Available [facility] [place] (Lab) [address] [place], [address], 04/13/2023 13:59:55 04/13/19 24 04/13/2023 CBC/C OMPLE TE BLD COUNT W/DIF F eosinophils 0.0 % 1.0-7. 0 low Not Available [facility] [place] (Lab) [address] [place], [address], 04/13/2023 13:59:55 04/13/19 24 04/13/2023 CBC/C OMPLE TE BLD COUNT W/DIF F basophils 0.5 % 0.0-2. 0 Not Available [facility] [place] (Lab) [address] [place], [address], 04/13/2023 13:59:55 04/13/19 24 04/13/2023 CBC/C OMPLE TE BLD COUNT W/DIF F immature granulocytes 0.6 % 0.00-0 .50 high Not Available [facility] [place] (Lab) [address] [place], [address], 04/13/2023 13:59:55 04/13/19 24 04/13/2023 CBC/C OMPLE TE BLD COUNT W/DIF F neutrophils, absolute count 5.51 x10'3 /uL 1.5-8. 0 Not Available [facility] (Lab) [address] [place], [address], 04/13/2023 13:59:55 04/13/19 24 04/13/2023 CBC/C OMPLE TE BLD COUNT W/DIF F lymphocytes, absolute count 1.65 x10'3 /uL 1.07-3 .43 Not Available [facility] (Lab) [address] [place], [address], 04/13/2023 13:59:55 04/13/19 24 04/13/2023 CBC/C OMPLE TE BLD COUNT W/DIF F monocytes, absolute count 0.64 x10'3 /uL 0.29-0 .99 Not Available [facility] (Lab) [address] [place], [address], 04/13/2023 13:59:55 04/13/19 24 04/13/2023 CBC/C OMPLE TE BLD COUNT W/DIF F eosinophils, absolute count 0.00 x10'3 /uL 0.02-0 .53 low Not Available [facility] (Lab) [address] [place], [address], 04/13/2023 13:59:55 04/13/19 24 04/13/2023 CBC/C OMPLE TE BLD COUNT W/DIF F basophils, absolute count 0.04 x10'3 /uL 0.01-0 .08 Not Available [facility] (Lab) [address] [place], [address], 04/13/2023 13:59:55 04/13/19 24 04/13/2023 CBC/C OMPLE TE BLD COUNT W/DIF F immature granulocytes ,absolute 0.05 x10'3 /uL 0.00-0 .05 Not Available [facility] (Lab) [address] [place], [address], 04/13/2023 13:59:55 04/13/19 24 04/13/2023 CBC/C OMPLE TE BLD COUNT W/DIF F nucleated red blood cells 0.0 % -0 Not Available [facility] (Lab) [address] [place], [address], 04/13/2023 13:59:55 04/13/19 24 04/13/2023 CBC/C OMPLE TE BLD COUNT W/DIF F NRBC# 0.00 x10'3 /uL Not Available [facility] (Lab) [address] [place], [address], 04/13/2023 13:59:55 04/13/19 24 04/13/2023 AST/S GOT aspartate aminotransfe rase 25 U/L 15-37 Not Available [facility] (Lab) [address] [place], [address], 04/13/2023 14:34:11 04/13/19 24 04/13/2023 BASIC METAB OLIC PANEL sodium 140 mmol/ L 137-14 5 Not Available [facility] (Lab) [address] [place], [address], 04/13/2023 14:34:16 04/13/19 24 04/13/2023 BASIC METAB OLIC PANEL potassium 3.5 mmol/ L 3.5-5. 1 Not Available [facility] (Lab) [address] [place], [address], 04/13/2023 14:34:16 04/13/19 24 04/13/2023 BASIC METAB OLIC PANEL chloride 102 mmol/ L 98-107 Not Available [facility] (Lab) [address] [place], [address], 04/13/2023 14:34:16 04/13/19 24 04/13/2023 BASIC METAB OLIC PANEL carbon dioxide 29 mmol/ L 22-30 Not Available [facility] (Lab) [address] [place], [address], 04/13/2023 14:34:16 04/13/19 24 04/13/2023 BASIC METAB OLIC PANEL anion gap 12.5 mmol/ L 14-22 low Not Available [facility] (Lab) [address] [place], [address], 04/13/2023 14:34:16 04/13/19 24 04/13/2023 BASIC METAB OLIC PANEL glucose 114 mg/dL 70-99 high Not Available [facility] (Lab) [address] [place], [address], 04/13/2023 14:34:16 04/13/19 24 04/13/2023 BASIC METAB OLIC PANEL BUN 25 mg/dL 8-19 high Not Available [facility] (Lab) [address] [place], [address], 04/13/2023 14:34:16 04/13/19 24 04/13/2023 BASIC METAB OLIC PANEL creatinine 0.86 mg/dL 0.66-1 .25 Not Available [facility] (Lab) [address] [place], [address], 04/13/2023 14:34:16 04/13/19 24 04/13/2023 BASIC METAB OLIC PANEL GFR >60 Refer ence Range : [place] ge GFR Healt hy Adult : >60 [...] calcu lator is avail able on the [facility] websi te: [email or web address] :[email or web address] s/kdo qi/gf r_cal culat or Not Available [facility] (Lab) [address] [place], [address], 04/13/2023 14:34:16 04/13/19 24 04/13/2023 BASIC METAB OLIC PANEL calcium 9.7 mg/dL 8.4-10 .2 Not Available [facility] (Lab) [address] [place], [address], 04/13/2023 14:34:16 12/12/19 XR, knee No observ ation record ed. [facility] [place] [address], [place], [address], 12/11/2022 16:32:52 02/27/19 24 02/27/2023 MAMMO , scree shaina, bilat eral No observ ation record ed. [email or web address] [facility] [address], [place], [address], 02/28/2023 14:34:48 Result Notes None recorded. Problems Name Problem SNOMED Code Status Onset Date Resolution Date Notes Provider Name and Address Organization Details Recorded Time Cobalamin deficiency 983926509 Active 2021 Not Available [facility] 4 19:23:38 Hyperlipid emia 03391903 Active 2021 Not Available [facility] 4 19:23:38 Prediabete s 787604152 Active 2021 Not Available [facility] 4 19:23:38 Fatigue 69621881 Active 2022 Not Available [facility] 4 19:23:38 Allergic rhinitis 59313260 Active 2022 Not Available [facility] 4 19:23:38 Menopausal symptom 72149504 Active 2022 Not Available [facility] 4 19:23:38 Gastroesop hageal reflux disease without esophagiti s 284868606 Active 2022 Not Available [facility] 4 19:23:38 Mixed anxiety and depressive disorder 965721528 Active 2022 Not Available [facility] 4 19:23:38 Carotid artery stenosis 13466074 Active 2022 Not Available [facility] 4 19:23:38 Osteopenia 894470458 Active 2022 Not Available [facility] 4 19:23:38 Vitamin D deficiency 91245988 Active 2022 Not Available [facility] 4 19:23:38 Pain of right knee joint 1805869553371 00 Active 2022 Not Available [facility] 4 19:23:38 Problem Notes None recorded. Procedures Surgical History Date Name Laterality Status Provider Name and Address Organization Details Recorded Time Unlisted px femur/knee completed Not Available [facility] 04/20/2022 00:58:56 Appendectomy completed Not Available [facility] 04/20/2022 00:58:56 Imaging Results Imaging Date Name Status LastModified by Organiz ation Details LastModified Time 12/11/2022 XR, knee completed [facility] [place] [facility] [address], [place], [address], 12/11/2022 16:32:52 02/27/2023 MAMMO, screening, bilateral completed [email or web address] [facility] [address], [place], [address], 02/28/2023 14:34:48 Procedure Notes None recorded. Medical [...] cm Cinthya Wyatt MA [place] [facility] 09/05/2022 10:39:51 Date Recorded Body height Body mass index (BMI) Body weight Body temperature Heart rate Systolic blood pressure Diastolic blood pressure Provider Name and Address Organization Details Last Updated DateTime 3 167.64 cm 29.2 kg/m2 06238.2 2 g 97.5 [degF] 76 /min 116 mm[Hg] 70 mm[Hg] Cinthya Wyatt MA [facility] [employer] [facility] 3 14:11:19 Date Recorded Body height Body mass index (BMI) Body weight Provider Name and Address Organization Details Last Updated DateTime 12/11/2022 167.64 cm 29.7 kg/m2 70557.71 g Dominique Lacy CNA [facility] [employer] [facility] 12/11/2022 15:47:32 Date Recorded Body height Provider Name an d Address Organization Details Last Updated DateTime 01/22/2023 167.64 cm Anneliese Baeza [facility] [employer] [facility] 01/22/2023 14:24:04 Date Recorded Body height Body mass index (BMI) Body weight Body temperature Heart rate Oxygen saturation Oxygen saturation in Arterial blood by Pulse oximetry Systolic blood pressure Diastolic blood pressure Provider Name and Address Organization Details Last Updated DateTime 4 167.64 cm 31.3 kg/m2 75271.9 2 g 97.8 [degF] 86 /min 97 % 97 % 122 mm[Hg] 80 mm[Hg] Cinthya Wyatt MA [facility] [employer] [facility] 4 14:02:30 Social History Question Answer Notes LastModified by Organization Details LastModified Time Tobacco Smoking Status Former Smoker RADHA Gatica, [facility] 03/07/2023 13:47:50 What Is Your Level Of Alcohol Consumption? Occasional [email or web address] Information not available 12/11/2022 What Is Your Level Of Caffeine Consumption? Occasional [email or web address] [id number] Information not available 04/20/2022 In The 14 Days Before Symptom Onset, Have You Had Close Contact With A Laboratory-conf irmed COVID-19 While That Case Was Ill? No [email or web address] Information not available 03/07/2023 In The 14 Days Before Symptom Onset, Have You Had Close Contact With A Person Who Is Under Investigation For COVID-19 While That Person Was Ill? No [email or web address] Information not available 03/07/2023 What Type Of Diet Are You Following? REGULAR [id number] Information not available 04/20/2022 What Is The Highest Grade Or Level Of School You Have Completed Or The Highest Degree You Have Received? [id number] [email or web address] Information not available 03/07/2023 Have There Been Any Changes To Your Family Or Social Situation? Yes Sister Has Dementia [email or web address] Information not available 03/07/2023 What Is The Fluoride Status Of Your Home? Unknown [email or web address] Information not available 03/07/2023 When Did You Quit Smoking? 11-15yearssincelas tcigarette [email or web address] Information not available 03/07/2023 Do You Use Insect Repellent Routinely? No [email or web address] Information not available 03/07/2023 Where Do You Live? SingleLevelHouse Information not available 03/07/2023 What Was The Date Of Your Most Recent Tobacco Screening? 03/07/2023 [email or web address] Information not available 03/07/2023 Do You Have Any Pets? No [email or web address] Information not available 03/07/2023 What Is Your Relationship Status? MIGRATION.030 [id number] Information not available 04/20/2022 Do You Use Your Seat Belt Or Car Seat Routinely? Yes [email or web address] Information not available 03/07/2023 Do You Have Smoke And Carbon Monoxide Detectors In Your Home? Yes [email or web address] Information not available 03/07/2023 Are You Passively Exposed To Smoke? No [email or web address] Information not available 03/07/2023 Are There Any Smokers In Your House? No [email or web address] Information not available 03/07/2023 Do You Feel Stressed (tense, Restless, Nervous, Or Anxious, Or Unable To Sleep At Night)? [id number] [email or web address] Information not available 03/07/2023 Do You Use Any Illicit Or Recreational Drugs? No [email or web address] Information not available 03/07/2023 Do You Use Sunscreen Routinely? Yes [email or web address] Information not available 03/07/2023 Have You Recently Traveled Abroad? No [email or web address] Information not available 03/07/2023 Do You Have Any Dietary Restrictions? No Information not available 03/07/2023 Do You Or Have You Ever Used Any Other Forms Of Tobacco Or Nicotine? No [email or web address] Information not available 03/07/2023 Sex: Unknown Functional Status Question Answer Note LastModified by Organizat ion Details LastModified Time What is your exercise level? Occasional [id number] Information not available 04/20/2022 Mental Status None recorded. Family History Relationship Description Onset Age of this Age Resolved Age Notes LastModified by Organization Details LastModified Time Mother Malignant tumor of breast [email or web address] Not available 02/19 13:47:50 Mother Hypertensive disorder [email or web address] [id number] Not available 04/20/2022 00:59:00 Sister Malignant tumor of breast X2 [email or web address] Not available 02/19 13:47:50 Sister Heart disease [email or web address] Not available 2022 15:42:29 Sister Blood coagulation disorder [email or web address] Not available 02/19 13:47:50 Sister Dementia [email or web address] Not availa ble 03/07/2023 13:47:50 Sister Diabetes mellitus MIGRATION.806 [id number] Not available 04/20/2022 00:59:00 Sister Hypertensive disorder X3 MIGRATION.823 [id number] Not available 04/20/2022 00:59:00 Father Diabetes mellitus MIGRATION.091 [id number] Not available 04/20/2022 00:59:00 Father Heart disease MIGRATION.962 [id number] Not available 04/20/2022 00:59:00 Brother Heart disease MIGRATION.667 [id number] Not available 04/20/2022 00:59:00 Father Hypertensive disorder [email or web address] Not available 2022 15:42:16 Medical History Condition Response ARTHRITIS Y ANXIETY DISORDER Y ANEMIA/BLOOD DISORDER Y DIABETES, TYPE DEPRESSION (INCLUDING POST ) Y Gynecological HistoryNo gynecological history recorded. Obstetrics History GPAL:G 0 P 0 0 0 0 Immunizations Vaccine Type Date Status Note Provider Nam e and Address Organization Details Recorded Time COVID-19, mRNA, LNP-S, PF, 30 mcg/0.3 mL dose 1 completed Not Available [facility] 03/09/2023 19:23:38 COVID-19, mRNA, LNP-S, PF, 30 mcg/0.3 mL dose 1 completed Not Available [facility] 03/09/2023 19:23:38 COVID-19, mRNA, LNP-S, PF, 30 mcg/0.3 mL dose 1 completed Not Available [facility] 03/09/2023 19:23:38 Influenza, split virus, quadrivalent, PF 2 completed Not Available [facility] 03/09/2023 19:23:38 Pneumococcal conjugate PCV20, polysaccharide VPS571 conjugate, adjuvant, PF 3 completed Niesha Messina, ONOFRE-Elva [address] [facility], [facility] [address], [place], [address], [facility] 2022 15:56:19 Past Encounters Encounter ID Performer Location Encounter Start Date Encounter Closed Date Diagnosis/Indication Diagnosis SNOMED-CT Code Diagnosis ICD10 Code Diagnosis Note [id number] [facility] [place] [address] [place] [address] y , [place] [address] 08/10/2021 00:00:00 08/10/2021 15:43:37 [id number] [facility] [place] [address] [place] [address] y , [place] [address] 08/31/2021 00:00:00 08/31/2021 17:08:01 [id number] [facility] Internal [facility] [place] [address] [place] [address] y , [place] [address] 09/28/2021 00:00:00 09/28/2021 13:51:04 [id number] [facility] [place] [address] [place] [address] [place] [address] 10/05/2021 00:00:00 10/05/2021 13:00:40 [id number] [facility] [place] [address] [place] [address] y , [place] [address] 11/02/2021 00:00:00 11/02/2021 12:59:32 [id number] [facility] [place] [address] [place] [address] 11/30/2021 00:00:00 11/30/2021 12:58:52 [id number] [facility] Internal Med [place] [address] [place] [address] 02/22/2022 00:00:00 02/22/2022 17:33:35 [id number] ONOFRE Chen-Elva 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[place] Allergic rhinitis 486671 04 J30.9 On Singulair and Flonase Call office if any change in mood or behavior Renewal of prescription 583011728 Z76.0 Gastroesop hageal reflux disease without esophagitis 820080647 K21.9 on protonix and famotidine Mixed anxi ety and depressive disorder 583716296 F41.8 on sertraline , she is aware of side effects, risks, benefitsca ll office if any change in mood or behaviorsh e declines psychiatry referral Prediabetes 940267474 R7 3.03 Ozempic was not covered by insurance, but Christopher was, she is aware this is off label for prediabete spt is aware of side effects, risks, benefitspt denies any personal or family history of MEN II or MTC, denies and personal history of pancreatit ispt knows to call the office if any severe n/v or abdominal pain Wants to lose weight 170 510303 Z71.3 recommend healthy, well balanced mealsfocus on lean meats, fresh vegetables , fresh fruits, whole grainsredu ce fast/proce ssed foods or eating out to no more than 1-2 times per weekaim to get 30 min of exercise most days of the week- walking is a great choicealso recommend resistance training 2-3 times per week Carotid ar kamryn stenosis 74362641 I65.29 carotid doppler <50% stenosis bilaterall y Osteopenia 525281555 M85 .80 on OTC calcium/vi tamin dweight bearing exercise recommende d 2-3x per week [id number] Niesha Messina, CANELO [facility] [place] [address] [facility] [place] [address] 2022 13:56:00 2022 14:38:36 Cobalamin deficiency 997685898 E53.8 On monthly injections Hyperlipidemia 55345485 E78.5 On atorvastat in Fatigue 07894166 R53.83 also recommend sleep study which she declined Menopausal symptom 95543 002 E89.41 estradiol low/FSH elevated on labs c/w with menopausal female now following [employer]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[place] Allergic rhinitis 864288 04 J30.9 On Singulair and FlonaseCal l office if any change in mood or behavior Gastroesop hageal reflux disease without esophagitis 026330844 K21.9 on protonix and famotidine Mixed anxi ety and depressive disorder 371901564 F41.8 on sertraline , she is aware of side effects, risks, benefits call office if any change in mood or behavior she declines psychiatry referral Prediabetes 227789544 R7 3.03 insurance will no longer cover Raj harjinder is working on lifestyle measures Wants to lose weight 170 464211 Z71.3 recommend healthy, well balanced mealsfocus on lean meats, fresh vegetables , fresh fruits, whole grainsredu ce fast/proce ssed foods or eating out to no more than 1-2 times per weekaim to get 30 min of exercise most days of the week- walking is a great choicealso recommend resistance training 2-3 times per week Carotid ar kamryn stenosis 31918363 I65.29 carotid doppler <50% stenosis bilaterall y Osteopenia 784335476 M85 .80 on OTC calcium/vi tamin d weight bearing exercise recommende d 2-3x per week Vitamin D deficiency 347 52620 E55.9 on OTC supplement Screening mammography 24 168354 Z12.31 Pain of ri ght knee joint 3980116602 46596 M25.561 get appt with ortho- she would like another injection Administra tion of pneumococcal vaccine 26588600 Z23 [id number] Jero Ann MD [facility] [place] [address] [place] [address] 12/11/2022 14:35:27 12/11/2022 16:37:37 Pain of right knee joint 4167259229 87155 M25.623 [id number] LARISA Schwab [facility] [place] [address] [place] [address] 01/22/2023 14:20:51 01/22/2023 15:28:26 Pain of right knee joint 3590717753 63662 M25.815 [id number] ONOFRE Chen-Elva [facility] Internal Med [address] [facility], [address] [place] [address] 03/07/2023 13:46:03 03/07/2023 15:33:49 Cobalamin deficiency 505312625 E53.8 On monthly b12 injections Hyperlipidemia 04644532 E78.5 On atorvastat in Fatigue 90844189 R53.83 previously recommend sleep study which she declined Menopausal symptom 37159 002 E89.41 estradiol low/FSH elevated on labs c/w with menopausal femalenow following [employer]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[place] Allergic rhinitis 759697 04 J30.9 On Singulair and FlonaseCal l office if any change in mood or behavior Gastroesop hageal reflux disease without esophagitis 955491291 K21.9 on protonix and famotidine Mixed anxi ety and depressive disorder 288588772 F41.8 on sertraline , she is aware of side effects, risks, benefitsca ll office if any change in mood or behaviorskarla grande declines psychiatry referral Prediabetes 700075767 R7 3.03 insurance will no longer cover Raj grande is working on lifestyle measures Wants to lose weight 170 429369 Z71.3 recommend healthy, well balanced mealsfocus on lean meats, fresh vegetables , fresh fruits, whole grainsredu ce fast/proce ssed foods or eating out to no more than 1-2 times per weekaim to get 30 min of exercise most days of the week- walking is a great choicealso recommend resistance training 2-3 times per week Carotid ar kamryn stenosis 45445701 I65.29 carotid doppler <50% stenosis bilaterall y Osteopenia 022286359 M85 .80 on OTC calcium/vi tamin dweight bearing exercise recommende d 2-3x per week Vitamin D deficiency 347 55839 E55.9 on OTC supplement Pain of ri ght knee joint 2126684240 68423 M25.561 following ortho- Dr. Ann Renewal of prescription 833038399 Z76.0 Health Concerns Section Related Observation LastModified by Organization Detai ls LastModified Time None Recorded Concern Status LastModified by Organization Details LastModified Time None Recorded Advance Directives Directive None Recorded Payers Encounter Date Sequence Insurance Name Policy Number Policy Zamora Covered Member ID Zamora Member ID Guarantor Name 09/05/2022 1 [facility] [place] [id number] Hannah Widenhoefer [id number] Hannah Widenhoefer 2022 1 [place] Hannah J Widenhoefer [id number] Hannah Widenhoefer 2022 2 [employer] (MEDICARE SUPPLEMENT) Hannah Widenhoefer [id number] Hannah Widenhoefer 12/11/2022 1 [place] Hannah J Widenhoefer [id number] Hannah Widenhoefer 12/11/2022 2 [employer] (MEDICARE SUPPLEMENT) Hannah Widenhoefer [id number] Hannah Widenhoefer 01/22/2023 1 [place] Hannah J Widenhoefer [id number] Hannah Widenhoefer 01/22/2023 2 [employer] [place] (MEDICARE SUPPLEMENT) Hannah Widenhoefer [id number] Hannah Widenhoefer 03/07/2023 1 [place] Hannah J Widenhoefer [id number] Hannah Widenhoefer 03/07/2023 2 [employer] (MEDICARE SUPPLEMENT) Hannah Widenhoefer [id number] Hannah Widenhoefer Notes Date Note Type Note [...] allergies on the Singulair. CANELO Chen [address], [place], [address], [facility] 09/05/2022 11:12:16 2022 text/html Hannah presents to [...] for labs and mammogram. CANELO Chen [address], [place], [address], [facility] 2022 15:57:11 12/11/2022 text/html patient is a [...] reflux. Jero Ann MD [address], [facility] [address], [place], [address], [facility] 12/11/2022 16:35:25 03/07/2023 text/html Hannah presents to [...] plans transfer to a new PCP in [place]. CANELO Chen [address], [facility] [address], [place], [address], [facility] 03/07/2023 14:24:22 OBGyn Episode No OBEpisode recorded.
--- OUTSIDE RECORDS SUMMARY | 2024-05-05 21:22 | XMS_ITS | Clinical Summary ---
Author Organization [facility] Address [address] [facility] [place] [address] Care Team Providers Care Equipment Oiler Name Role Phone Unavailable Primary Care Provider Unavailabl e Source Comments [facility],non-owned Affiliates and Associated Physician Practices is amultiple site organization consisting of ambulatory clinics and hospital sitesin [place], [place], [place] and [place]. This disclosure is being madepursuant to the Care Everywhere program and may not contain all information available regarding this patient. 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 Pulse 102 03/11/2019 9:10 AM TAR POT WORKER Temperature 36.9 C (98.4 F) 03/11/2019 9:10 AM TAR POT WORKER Respiratory Rate 17 03/11/2019 9:10 AM TAR POT WORKER Oxygen Saturation 97% 03/11/2019 9:10 AM TAR POT WORKER Inhaled Oxygen Concentration - - Weight 86.6 kg (191 lb) 03/11/2019 9:10 AM TAR POT WORKER Height 167.6 cm (5' 6 ) 03/11/2019 9:10 AM TAR POT WORKER Body Mass Index 30.83 03/11/2019 9:10 AM TAR POT WORKER Plan of Treatment Health Maintenance Due Date [...] to complete this topic MENINGOCOCCAL (Group B) VACC INE SHARED DECISION-MAKING Aged Out No longer eligibl e based on patient's age to complete this topic MENINGOCOCCAL GROUPS A/C/Y/W VACCINE Aged Out No longer eligible b ased on patient's age to complete this topic
--- OUTSIDE RECORDS SUMMARY | 2024-05-05 21:22 | XMS_ITS | Clinical Summary ---
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 Gender Identity Not on file Sexual Orientation [...] 02/04/2014, 02/04/2014 Medical Devices Implanted Type Area Couture Dressmaker Device Identifier Shelf Expiration Date Model / Serial / Lot Synthes 04.034.549s Expert 11mm 345mm Cannulated Proximal Bend Tibial Flute Nail - [id number] Implanted:Qty: 1 on 12/03/2020 by Phu Figueroa MD at [facility] Left: Tibia Synthes I 01/18/2029 04.034.549 S / / [id number] Synthes 04.005.520 5mm 4.3mm 30mm Lock Self Tap Blunt Tip 2 Lead Tibial T25 Full - [id number] Implanted:Qty: 2 on 12/03/2020 by Phu Figueroa MD at [facility] Left: Leg Synthes I 04.005.520 / / Synthes 04.005.534 5mm 4.3mm 44mm Lock Self Tap Blunt Tip 2 Lead Tibial T25 Full - [id number] Implanted:Qty: 2 on 12/03/2020 by Phu Figueroa MD at [facility] Left: Leg Synthes I 04.005.534 / / Synthes 04.005.522 5mm 4.3mm 32mm Lock Self Tap Blunt Tip 2 Lead Tibial T25 Full - [id number] Implanted:Qty: 1 on 12/03/2020 by Phu Figueroa MD at [facility] Left: Leg Synthes I 04.005.522 / / Synthes 475.925 2.5mm 440mm Elastic Nail Intramedullary Titanium Pediatric - [id number] Implanted:Qty: 1 on 12/03/2020 by Phu Figueroa MD at [facility] Left: Fibula Synthes I 475.925 / / Explanted Type Area Couture Dressmaker Device Identifier Shelf Expiration Date Model / Serial / Lot Synthes 04.005.536 5mm 4.3mm 46mm Lock Self Tap Blunt Tip 2 Lead Tibial T25 Full - [id number] Explanted:Qty: 1 on 12/03/2020 by Phu Figueroa MD at [facility] Left: Leg Synthes I 04.005.53 6 / [...] Maintenance Insurance [place] [facility] [place]ICE [place]US [place] Advance Directives For more information, please contact: [phone] * Full Code (Latest Code Status on File) Date Activated Date Inactivated Comments 12/02/2020 8:42 PM 12/05/2020 8:36 PM Care Teams Wood Cut Engraver Relationship Specialty Start Date End Date Iris Ravi MD PCP - General 08/02/11
--- OUTSIDE RECORDS SUMMARY | 2024-05-05 21:22 | XMS_ITS | Patient Health Summary ---
Author Organization [facility] Address [address] [place] [address] Care Team Providers Care Book Repairer Name Role Phone Unavailable Primary Care Provider Unavailabl e Note from [facility],non-owned Affiliates and Associated Physician Practices is amultiple site organization consisting of ambulatory clinics and hospital sitesin [place], [place], [place] and [place]. This disclosure is being madepursuant to the Care Everywhere program and may not contain all information available regarding this patient. Last updated 17.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 Pulse 102 03/11/2019 9:10 AM RADIO CONTROL CRANE OPERATOR Temperature 36.9 C (98.4 F) 03/11/2019 9:10 AM RADIO CONTROL CRANE OPERATOR Respiratory Rate 17 03/11/2019 9:10 AM RADIO CONTROL CRANE OPERATOR Oxygen Saturation 97% 03/11/2019 9:10 AM RADIO CONTROL CRANE OPERATOR Inhaled Oxygen Concentration - - Weight 86.6 kg (191 lb) 03/11/2019 9:10 AM RADIO CONTROL CRANE OPERATOR Height 167.6 cm (5' 6 ) 03/11/2019 9:10 AM RADIO CONTROL CRANE OPERATOR Body Mass Index 30.83 03/11/2019 9:10 AM RADIO CONTROL CRANE OPERATOR Procedures * DERMATOPATHOLOGY(Performed 02/17/2015) Results * PATHOLOGY TISSUE FOR DERMATOLOGY (02/17/2015 12:00 AM RADIO CONTROL CRANE OPERATOR) Result CASE: [id number] PATIENT: HANNAH ROBLENIN PATHOLOGIC DIAGNOSIS: A. Left [...] of a shave biopsy (2 pieces) measuring [id number] 9o0t8xf. Jar 0. B: Received is one formalin filled container labeled with the patients name and designated above left brow. The specimen consists of a shave biopsy measuring 2q2a5yw. Jar 0. MICROSCOPIC DESCRIPTION: SPECIMEN A The [...] by Lian Larson M.D., PhD. 02/22/2015 2:05:22PM [facility] Comment: Performed at: Dermatopathology Laboratory [facility] - Department of Dermatology [address] [place] [address], 5th [place] [address] Phone number: [phone] FAX: [phone] 02/17/2015 02/18/2015 Maikel Palmer MD LAB - PATHOLOGY/CYTO LOGY ORDERABLES [facility] [address] [place] [address]. 5[address] [place] [address], [facility] [phone]
--- OUTSIDE RECORDS SUMMARY | 2024-05-05 21:22 | XMS_ITS | Referral Summary ---
Author Organization [facility] Address [address] [place] [address] Care Team Providers Care Collar Starcher Name Role Phone Iris Ravi MD Primary Care Provider [phone] Allergies No known active allergies Medications atorvastatin [...] on file Legal Sex Female 8:46 PM AURICULAR THERAPIST Gender Identity Not on file Sexual Orientation [...] on file Medical Devices Implanted Type Area Tester Food Products Device Identifier Shelf Expiration Date Model / Serial / Lot Synthes 04.034.549s Expert 11mm 345mm Cannulated Proximal Bend Tibial Flute Nail - [id number] Implanted:Qty: 1 on 12/03/2020 by Phu Figueroa MD at [facility] Left: Tibia Synthes I 01/18/2029 04.034.549 S / / [id number] Synthes 04.005.520 5mm 4.3mm 30mm Lock Self Tap Blunt Tip 2 Lead Tibial T25 Full - [id number] Implanted:Qty: 2 on 12/03/2020 by Phu Figueroa MD at [facility] Left: Leg Synthes I 04.005.520 / / Synthes 04.005.534 5mm 4.3mm 44mm Lock Self Tap Blunt Tip 2 Lead Tibial T25 Full - [id number] Implanted:Qty: 2 on 12/03/2020 by Phu Figueroa MD at [facility] Left: Leg Synthes I 04.005.534 / / Synthes 04.005.522 5mm 4.3mm 32mm Lock Self Tap Blunt Tip 2 Lead Tibial T25 Full - [id number] Implanted:Qty: 1 on 12/03/2020 by Phu Figueroa MD at [facility] Left: Leg Synthes I 04.005.522 / / Synthes 475.925 2.5mm 440mm Elastic Nail Intramedullary Titanium Pediatric - [id number] Implanted:Qty: 1 on 12/03/2020 by Phu Figueroa MD at [facility] Left: Fibula Synthes I 475.925 / / Explanted Type Area Tester Food Products Device Identifier Shelf Expiration Date Model / Serial / Lot Synthes .005.536 5mm 4.3mm 46mm Lock Self Tap Blunt Tip 2 Lead Tibial T25 Full - [id number] Explanted:Qty: 1 on 12/03/2020 by Phu Figueroa MD at [facility] Left: Leg Synthes I 04.005.53 6 [...] Health Maintenance Insurance [place] [facility] CHOICE PLUS [facility] HMO/PPO Address: [address] [address] [place] [address] [place] Advance Directives For more information, please contact: [phone] * Full Code (Latest Code Status on File) Date Activated Date Inactivated Comments 12/02/2020 8:42 PM 12/05/2020 8:36 PM Care Teams Collar Starcher Relationship Specialty Start Date End Date Iris Ravi MD PCP - General 08/02/11
--- NOTE | 2024-05-05 21:43 | PC.NURSE ---
All stroke like symptoms resolved at this time in triage and pt denies ever having any weakness at this time. This RN went to MD Ramon and LARISA Crouch and asked for their opinion. They both verbally ordered to do stroke protocols without doing pt stroke stop due to pt symptoms resolving.
--- NOTE | 2024-05-05 21:49 | ECG_ITS ---
Test Date: 2024-05-05 21:56:18 Measurements Intervals [place] Rate: 62 P: 49 ID: [id number] QRS: 27 QRSD: 92 T: 52 QT: 394 QTc: 402 Interpretive Statements SINUS RHYTHM No previous ECG available for comparison Electronically Signed On 05-06-2024 16:46:13 CDT by Swetha Pierre M.D.
[2024-05-05 22:02] LABS: Glucose Point of Care 88 mg/dl (65-105)
--- OUTSIDE RECORDS SUMMARY | 2024-05-05 22:03 | XMS_ITS | Patient Health Summary ---
Author Organization [facility] Address [address] [place] [address] Care Team Providers Care Author Agent Name Role Phone Unavailable Primary Care Provider Unavailabl e Note from [facility],non-owned Affiliates and Associated Physician Practices is amultiple site organization consisting of ambulatory clinics and hospital sitesin [place], [place], [place] and [place]. This disclosure is being madepursuant to the Care Everywhere program and may not contain all information available regarding this patient. Last updated 17.[facility] Allergies No known active allergies Medications * [...] propionate (FLONASE) 50 MCG/ACT nasal spray(Started 03/11/2019) [place] 2 sprays into each nostril once daily [...] Comments Blood Pressure 116/78 03/11/2019 9:10 AM DEBURRING TECHNICIAN Pulse 102 03/11/2019 9:10 AM DEBURRING TECHNICIAN Temperature 36.9 C (98.4 F) 03/11/2019 9:10 AM DEBURRING TECHNICIAN Respiratory Rate 17 03/11/2019 9:10 AM DEBURRING TECHNICIAN Oxygen Saturation 97% 03/11/2019 9:10 AM DEBURRING TECHNICIAN Inhaled Oxygen Concentration - - Weight 86.6 kg (191 lb) 03/11/2019 9:10 AM DEBURRING TECHNICIAN Height 167.6 cm (5' 6 ) 03/11/2019 9:10 AM DEBURRING TECHNICIAN Body Mass Index 30.83 03/11/2019 9:10 AM DEBURRING TECHNICIAN Procedures * DERMATOPATHOLOGY(Performed 02/17/2015) Results * PATHOLOGY TISSUE FOR DERMATOLOGY (02/17/2015 12:00 AM DEBURRING TECHNICIAN) Result CASE: [id number] PATIENT: HANNAH ROBLENIN PATHOLOGIC DIAGNOSIS: A. Left [...] of a shave biopsy (2 pieces) measuring 5n0n2ql 0x1l1yq. Jar 0. B: Received is one formalin filled container labeled with the patients name and designated above left brow. The specimen consists of a shave biopsy measuring 2w3p3hz. Jar 0. MICROSCOPIC DESCRIPTION: SPECIMEN A The [...] by Lian Larson M.D., PhD. 02/22/2015 2:05:22PM [facility] Comment: Performed at: Dermatopathology Laboratory [facility] - Department of Dermatology [address] [place] [address], 5th [place] [address] Phone number: [phone] FAX: [phone] 02/17/2015 02/18/2015 Maikel Palmer MD LAB - PATHOLOGY/CYTO LOGY ORDERABLES [facility] [address] [place] [address]. [address] [place] [address], [facility] [phone]
--- OUTSIDE RECORDS SUMMARY | 2024-05-05 22:03 | XMS_ITS | Referral Summary ---
Author Organization [facility] [employer] Address [address] [place] [address] Care Team Providers Care Sorting Machine Operator Name Role Phone Unavailable Primary Care Provider Unavailabl e Source Comments [facility],non-owned Affiliates and Associated Physician Practices is amultiple site organization consisting of ambulatory clinics and hospital sitesin [place], [place], [place] and [place]. This disclosure is being madepursuant to the Care Everywhere program and may not contain all information available regarding this patient. Last updated 17.[facility] [employer] Allergies No known active allergies Medications * [...] fluticasone propionate (FLONASE) 50 MCG/ACT nasal spray [place] 2 sprays into each nostril once daily [...] Comments Blood Pressure 116/78 03/11/2019 9:10 AM STANDARDS ANALYST Pulse 102 03/11/2019 9:10 AM STANDARDS ANALYST Temperature 36.9 C (98.4 F) 03/11/2019 9:10 AM STANDARDS ANALYST Respiratory Rate 17 03/11/2019 9:10 AM STANDARDS ANALYST Oxygen Saturation 97% 03/11/2019 9:10 AM STANDARDS ANALYST Inhaled Oxygen Concentration - - Weight 86.6 kg (191 lb) 03/11/2019 9:10 AM STANDARDS ANALYST Height 167.6 cm (5' 6 ) 03/11/2019 9:10 AM STANDARDS ANALYST Body Mass Index 30.83 03/11/2019 9:10 AM STANDARDS ANALYST Plan of Treatment Not on file
--- OUTSIDE RECORDS SUMMARY | 2024-05-05 22:03 | XMS_ITS | Clinical Summary ---
Author Organization [facility] [employer] Address [address] [place] [address] Care Team Providers Care [place] Cutting Machine Operator Name Role Phone Unavailable Primary Care Provider Unavailabl e Source Comments [facility],non-owned Affiliates and Associated Physician Practices is amultiple site organization consisting of ambulatory clinics and hospital sitesin [place], [place], [place] and [place]. This disclosure is being madepursuant to the Care Everywhere program and may not contain all information available regarding this patient. Last updated 17.[facility] [employer] Allergies No known active allergies Medications * [...] fluticasone propionate (FLONASE) 50 MCG/ACT nasal spray [place] 2 sprays into each nostril once daily [...] Comments Blood Pressure 116/78 03/11/2019 9:10 AM CHEMISTRY INTERN Pulse 102 03/11/2019 9:10 AM CHEMISTRY INTERN Temperature 36.9 C (98.4 F) 03/11/2019 9:10 AM CHEMISTRY INTERN Respiratory Rate 17 03/11/2019 9:10 AM CHEMISTRY INTERN Oxygen Saturation 97% 03/11/2019 9:10 AM CHEMISTRY INTERN Inhaled Oxygen Concentration - - Weight 86.6 kg (191 lb) 03/11/2019 9:10 AM CHEMISTRY INTERN Height 167.6 cm (5' 6 ) 03/11/2019 9:10 AM CHEMISTRY INTERN Body Mass Index 30.83 03/11/2019 9:10 AM CHEMISTRY INTERN Plan of Treatment Health Maintenance Due Date [...]
--- OUTSIDE RECORDS SUMMARY | 2024-05-05 22:03 | XMS_ITS | Referral Summary ---
Author Organization [facility] Address [address] [place] [address] Care Team Providers Care Program Evaluation Consultant Name Role Phone Iris Ravi MD Primary Care Provider [phone] Allergies No known active allergies Medications atorvastatin [...] on file Legal Sex Female 8:46 PM MANAGER OF INTERNAL AUDIT Gender Identity Not on file Sexual Orientation [...] on file Medical Devices Implanted Type Area Memory Care Program Director Device Identifier Shelf Expiration Date Model / Serial / Lot Synthes 04.034.549s Expert 11mm 345mm Cannulated Proximal Bend Tibial Flute Nail - [id number] Implanted:Qty: 1 on 12/03/2020 by Phu Figueroa MD at [facility] Left: Tibia Synthes I 01/18/2029 04.034.549 S / / [id number] Synthes 04.005.520 5mm 4.3mm 30mm Lock Self Tap Blunt Tip 2 Lead Tibial T25 Full - [id number] Implanted:Qty: 2 on 12/03/2020 by Phu Figueroa MD at [facility] Left: Leg Synthes I 04.005.520 / / Synthes 04.005.534 5mm 4.3mm 44mm Lock Self Tap Blunt Tip 2 Lead Tibial T25 Full - [id number] Implanted:Qty: 2 on 12/03/2020 by Phu Figueroa MD at [facility] Left: Leg Synthes I 04.005.534 / / Synthes 04.005.522 5mm 4.3mm 32mm Lock Self Tap Blunt Tip 2 Lead Tibial T25 Full - [id number] Implanted:Qty: 1 on 12/03/2020 by Phu Figueroa MD at [facility] Left: Leg Synthes I 04.005.522 / / Synthes 475.925 2.5mm 440mm Elastic Nail Intramedullary Titanium Pediatric - [id number] Implanted:Qty: 1 on 12/03/2020 by Phu Figueroa MD at [facility] Left: Fibula Synthes I 475.925 / / Explanted Type Area Memory Care Program Director Device Identifier Shelf Expiration Date Model / Serial / Lot Synthes .005.536 5mm 4.3mm 46mm Lock Self Tap Blunt Tip 2 Lead Tibial T25 Full - [id number] Explanted:Qty: 1 on 12/03/2020 by Phu Figueroa MD at [facility] Left: Leg Synthes I 04.005.53 6 / [...] Health Maintenance [place] CHOICE [place]F [place] [facility] CHOICE PLUS [facility] HMO/PPO Address: [address] [address] [place] [address] [place] Advance Directives For more information, please contact: [phone] * Full Code (Latest Code Status on File) Date Activated Date Inactivated Comments 12/02/2020 8:42 PM 12/05/2020 8:36 PM Care Teams Program Evaluation Consultant Relationship Specialty Start Date End Date Iris Ravi MD PCP - General 08/02/11
--- OUTSIDE RECORDS SUMMARY | 2024-05-05 22:04 | XMS_ITS | Clinical Summary ---
Author Organization [facility] Address [address] [place] [address] Care Team Providers Care Paint Grinder Name Role Phone Iris Ravi MD Primary Care Provider [phone] Allergies No known active allergies Medications atorvastatin [...] on file Legal Sex Female 8:46 PM SCARFER Gender Identity Not on file Sexual Orientation [...] 02/04/2014, 02/04/2014 Medical Devices Implanted Type Area Waterproof Bag Sewer Device Identifier Shelf Expiration Date Model / Serial / Lot Synthes 04.034.549s Expert 11mm 345mm Cannulated Proximal Bend Tibial Flute Nail - [id number] Implanted:Qty: 1 on 12/03/2020 by Phu Figueroa MD at [facility] Left: Tibia Synthes I 01/18/2029 04.034.549 S / / [id number] Synthes 04.005.520 5mm 4.3mm 30mm Lock Self Tap Blunt Tip 2 Lead Tibial T25 Full - [id number] Implanted:Qty: 2 on 12/03/2020 by Phu Figueroa MD at [facility] Left: Leg Synthes I 04.005.520 / / Synthes 04.005.534 5mm 4.3mm 44mm Lock Self Tap Blunt Tip 2 Lead Tibial T25 Full - [id number] Implanted:Qty: 2 on 12/03/2020 by Phu Figueroa MD at [facility] Left: Leg Synthes I 04.005.534 / / Synthes 04.005.522 5mm 4.3mm 32mm Lock Self Tap Blunt Tip 2 Lead Tibial T25 Full - [id number] Implanted:Qty: 1 on 12/03/2020 by Phu Figueroa MD at [facility] Left: Leg Synthes I 04.005.522 / / Synthes 475.925 2.5mm 440mm Elastic Nail Intramedullary Titanium Pediatric - [id number] Implanted:Qty: 1 on 12/03/2020 by Phu Figueroa MD at [facility] Left: Fibula Synthes I 475.925 / / Explanted Type Area Waterproof Bag Sewer Device Identifier Shelf Expiration Date Model / Serial / Lot Synthes 04.005.536 5mm 4.3mm 46mm Lock Self Tap Blunt Tip 2 Lead Tibial T25 Full - [id number] Explanted:Qty: 1 on 12/03/2020 by Phu Figueroa MD at [facility] Left: Leg Synthes I 04.005.53 6 [...] Maintenance Insurance [place] [facility] [place]ICE PLUS [place] Advance Directives For more information, please contact: [phone] * Full Code (Latest Code Status on File) Date Activated Date Inactivated Comments 12/02/2020 8:42 PM 12/05/2020 8:36 PM Care Teams Paint Grinder Relationship Specialty Start Date End Date Iris Ravi MD PCP - General 08/02/11
[2024-05-05 22:13] LABS: Basophils Absolute Auto 0.1 K/mm3 (0.0-0.1); Basophils Percent Auto 0.7 % (0.2-1.2); Eosinophils Percent Auto 0.2 % (0-4.4); Hematocrit 36.6 % (37.0-47.0); Hemoglobin 12.4 g/dL (12.0-15.0); Immature Granulocyte Absolute 0.04 K/mm3 (0.00-0.031); Immature Granulocyte Percent A 0.4 % (0-0.5); Lymphocytes Absolute Auto 2.24 K/mm3 (0.9-3.2); Lymphocytes Percent Auto 23.8 % (18.3-44.2); Mean Corpuscular HGB Conc 33.9 g/dl (32-36); Mean Corpuscular Hemoglobin 32.3 pg (26-34); Mean Corpuscular Volume 95.3 fl (80-100); Mean Platelet Volume 9.1 fl (7.4-10.4); Monocytes Absolute Auto 0.6 K/mm3 (0.1-0.6); Monocytes Percent Auto 6.8 % (2.6-8.5); Neutrophils Absolute Auto 6.4 K/mm3 (1.3-6.7); Neutrophils Percent Auto 68.1 % (45.5-73.1); Platelet Count Result 349 k/mm3 (150-375); Red Blood Count 3.84 M/mm3 (4.2-5.4); Red Cell Distribution Width 12.7 % (11.5-14.5); White Blood Count 9.4 K/mm3 (4.5-10.0)
[2024-05-05 22:23] LABS: Alanine Aminotransferase 21 U/L (6-35); Albumin Level 4.5 g/dL (3.5-5.1); Alkaline Phosphatase 75 U/L (38-126); Anion Gap 9 mmol/L (4-12); Aspartate Amino Transferase 23 U/L (14-36); Bilirubin,Total 0.3 mg/dL (0.2-1.3); Blood Urea Nitrogen 18 mg/dL (7-17); Calcium 9.2 mg/dL (8.4-10.2); Carbon Dioxide 25 mmol/L (22-30); Chloride 102 mmol/L (98-107); Estimated Glomerular Filt Rate > 60; Glucose 91 mg/dL (65-110); Sodium 136 mmol/L (137-145)
[2024-05-05 22:25] LABS: INR 0.9; Partial Thromboplastin Time 23.8 Seconds (22.3-36.8); Prothrombin Time 12.4 Seconds (11.1-14.7)
[2024-05-05 22:35] LABS: Troponin I < 0.012 ng/mL (0.000-0.034)
--- NOTE | 2024-05-05 23:54 | ED.GENADULT ---
HPI - General Adult General Chief complaint: Neuro Symptoms/Deficit Stated complaint: episode of being unable to talk, tongue felt thick Time Seen by Provider: 05/05/24 21:51 History of Present Illness HPI narrative: Patient is a 68-year-old female presents emergency department with chief complaint of left-sided facial droop and slurred speech the patient reports he was working in her closet got up her noticed that she had a left-sided facial droop and was having difficulty forming words the patient says she thought that her tongue was thick at the time the patient reports that her symptoms lasted about 30 minutes and resolved since she has arrived here in the emergency department. Related Data Home Medications ?Medication ?Instructions ?Recorded ?Confirmed ?Last Taken ?Type ketoconazole 2 % topical cream 1 applic topical BID 04/18/23 11/27/23 Unknown History DHEA/PROG 15/110mcg BYMOUTH Compounded hormonal therapy 11/27/23 11/27/23 Unknown History Allergies Allergy/AdvReac Type Severity Reaction Status Date / Time No Known Allergies Allergy Mild Verified 05/05/24 22:01 Review of Systems Review of Systems: A 10 system review of systems was completed on the patient and is negative except for what is stated in the HPI. Nursing and ancillary documentation was reviewed. [facility] Past Medical History Medical History Normal cardiac stress test (~2015) Anxiety Depression HLD (hyperlipidemia) Prediabetes Surgical History Surgical History History of surgery on lower extremity H/O neck surgery H/O knee surgery (~1989) Family History Family History Mother High cholesterol Heart disease Breast cancer Bladder cancer Father High cholesterol Heart disease Malignant neoplasm of prostate Sibling Acute myocardial infarction Other Cerebrovascular accident Diabetes mellitus Family history of alcoholism Family history of arthritis Family history of cardiovascular disease Family history of mental disorder Social History Social History Smoking status: Never smoker Second hand tobacco smoke exposure: Yes Alcohol intake: current Alcohol use details: socially Substance use: never Substance use type: does not use Lack of Transportation: No Lack of Food: Never True Current Housing: I Have Housing Concerned About Future Housing: No Difficulty Paying Gas/Electric Bills: No Difficulty Paying for Meds: No Currently Unemployed: No Education: High School Diploma/GED Difficulty w/ Childcare or Family Care: No Living arrangements: with family Occupation/Education: retired Gender identity (if verbalized by the patient): Female Agree to blood products: No Exam Narrative: GENERAL: Well-appearing, well-nourished, and in no acute distress. HEAD: Normocephalic, atraumatic. EYES: PERRLA and EOMI. ENT: Nares clear, no rhinorrhea or epistaxis. Mucous membranes moist. NECK: Supple. CHEST: Clear to auscultation. No respiratory distress. HEART: Regular rate and rhythm. No murmur heard. Normal peripheral pulses. ABDOMEN: Soft, nontender, nondistended, normal active bowel sounds. EXTREMITIES: Normal range of motion. No edema. SKIN: Warm, dry, no rash. NEURO: No focal deficits. Alert and oriented x3. PSYCH: Normal mood and affect. Course Vital Signs Vital signs: Vital Signs Temperature 36.6 C 05/05/24 21:24 Pulse Rate 67 05/05/24 21:24 Respiratory Rate 18 05/05/24 21:24 Blood Pressure 133/71 05/05/24 21:24 Pulse Oximetry 99 05/05/24 21:24 Oxygen Delivery Room Air 05/05/24 21:24 Temperature 36.6 C 05/05/24 21:24 Pulse Rate 71 05/05/24 23:45 Respiratory Rate 19 05/05/24 23:45 Blood Pressure 144/83 H 05/05/24 23:16 Pulse Oximetry 96 05/05/24 23:45 Oxygen Delivery Room Air 05/05/24 21:24 Medical Decision Making MDM Narrative Medical decision making narrative: Differential diagnosis includes TIA, CVA, Patient is currently an NIH stroke scale of 0 Symptoms have completely resolved at this time CT head showed no acute abnormalities CTA head and neck showed no acute large vessel occlusion Laboratory studies were otherwise within normal limits. Vital Signs Vital Signs: Vital Signs Temperature 36.6 C 05/05/24 21:24 Pulse Rate 67 05/05/24 21:24 Respiratory Rate 18 05/05/24 21:24 Blood Pressure 133/71 05/05/24 21:24 Pulse Oximetry 99 05/05/24 21:24 Oxygen Delivery Room Air 05/05/24 21:24 Temperature 36.6 C 05/05/24 21:24 Pulse Rate 71 05/05/24 23:45 Respiratory Rate 19 05/05/24 23:45 Blood Pressure 144/83 H 05/05/24 23:16 Pulse Oximetry 96 05/05/24 23:45 Oxygen Delivery Room Air 05/05/24 21:24 Lab Data 05/05/24 22:02 05/05/24 22:02 Labs: Lab Results 05/05/24 05/05/24 Range/Units 21:57 22:02 WBC 9.4 (4.5-10.0) K/mm3 RBC 3.84 L (4.2-5.4) M/mm3 Hgb 12.4 (12.0-15.0) g/dL Hct 36.6 L (37.0-47.0) % MCV 95.3 (80-100) fl MCH 32.3 (26-34) pg MCHC 33.9 (32-36) g/dl RDW 12.7 (11.5-14.5) % Plt Count 349 (150-375) k/mm3 MPV 9.1 (7.4-10.4) fl Immature Gran % (Auto) 0.4 (0-0.5) % Neut % (Auto) 68.1 (45.5-73.1) % Lymph % (Auto) 23.8 (18.3-44.2) % Guthrie % (Auto) 6.8 (2.6-8.5) % Eos % (Auto) 0.2 (0-4.4) % Baso % (Auto) 0.7 (0.2-1.2) % Lymph # (Auto) 2.24 (0.9-3.2) K/mm3 Guthrie # (Auto) 0.6 (0.1-0.6) K/mm3 Eos # (Auto) 0.0 (0-0.3) K/mm3 Baso # (Auto) 0.1 (0.0-0.1) K/mm3 Abs Immat Gran (auto) 0.04 H (0.00-0.031) K/mm3 Absolute Neuts (auto) 6.4 (1.3-6.7) K/mm3 Absolute Nucleated RBC 0.000 (0.0-0.012) K/mm3 Nucleated RBC % 0.0 (0.0-0.2) % PT 12.4 (11.1-14.7) Seconds INR 0.9 APTT 23.8 (22.3-36.8) Seconds Sodium 136 L (137-145) mmol/L Potassium 4.0 (3.4-5.0) mmol/L Chloride 102 (98-107) mmol/L Carbon Dioxide 25 (22-30) mmol/L Anion Gap 9 (4-12) mmol/L BUN 18 H (7-17) mg/dL Creatinine 0.86 (0.7-1.0) mg/dL Estim Creat Clear Calc Not Reportable Estimated GFR > 60 (59 - ) Glucose 91 (65-110) mg/dL POC Capillary Glucose 88 (65-105) mg/dl Calcium 9.2 (8.4-10.2) mg/dL Total Bilirubin 0.3 (0.2-1.3) mg/dL AST 23 (14-36) U/L ALT 21 (6-35) U/L Alkaline Phosphatase 75 (38-126) U/L Troponin I < 0.012 (0.000-0.034) ng/mL Total Protein 7.0 (6.3-8.2) g/dL Albumin 4.5 (3.5-5.1) g/dL Discharge Plan Discharge Clinical Impression: Brain TIA Patient Disposition: Still a Patient Condition: Stable Patient Language: Hungarian Prescriptions: No Action DHEA/PROG 15/110mcg BYMOUTH ketoconazole 2 % cream 1 applic topical BID albuterol sulfate 90 mcg/actuation HFA aerosol inhaler See Rx Instructions .ROUTE .COMPLEX Qty: 8.5 3RF Dose Instruction: INHALE 1 PUFF BY MOUTH EVERY 4 HOURS NEEDED FOR SHORTNESS OF BREATH OR WHEEZING Rx Instructions: INHALE 1 PUFF BY MOUTH EVERY 4 HOURS NEEDED FOR SHORTNESS OF BREATH OR WHEEZING fluticasone propionate 50 mcg/actuation spray,suspension 2 spray intranasal DAILY Qty: 16 3RF Rx Instructions: administer into each nostril famotidine 40 mg tablet 40 mg PO DAILY Qty: 90 3RF phentermine 37.5 mg tablet 37.5 mg PO DAILY Qty: 30 0RF Rx Instructions: must administer 30 minutes before or 1-2 hours after breakfast montelukast [Singulair] 10 mg tablet 10 mg PO DAILY Qty: 90 2RF pantoprazole 40 mg tablet,delayed release (DR/EC) 40 mg PO QAM Qty: 90 3RF sertraline 100 mg tablet 150 mg PO DAILY Qty: 135 3RF atorvastatin 10 mg tablet 40 mg PO DAILY Qty: 90 3RF azithromycin 250 mg tablet See Rx Instructions PO .COMPLEX Qty: 6 0RF Rx Instructions: For 250 mg dose pack: take 500 mg today (day 1), then 250 mg for 4 days (days 2-5) PO methylprednisolone [Medrol (Liang)] 4 mg tablets,dose pack See Rx Instructions PO PER PKG DIR Qty: 21 0RF Rx Instructions: PO PER PKG DIR Follow-up/Referrals: Deirdre Morelos APRN [Primary Care Provider] - Time of Disposition: 00:46
[2024-05-06] VITALS (13 sets, daily range): BP systolic 114–166; BP diastolic 59–75; PULSE 60–87; RESP 16–18; TEMP 36–37; O2SAT 96–98; BMI 30.6
[2024-05-06] MEDS: ASPIRIN 81 MG CHEWABLE TABLET 324 MG PO (00:53)
[2024-05-06 03:45] LABS: Glucose Point of Care 103 mg/dl (65-105)
--- NOTE | 2024-05-06 04:04 | ADMGEN ---
This patient, Hannah Rico, was admitted to 3 Med Surg Room 310-01. Patient/family oriented to hospital policies and general routines including ID bracelet, bed and alarms, visiting hours, pain management, procedures, bathroom and other care routines, personal items, smoking policy, room service/diet, and visiting hours. Information on how to activate the Rapid Response Team has been discussed. Patient/Family are encouraged to report perceived risks to care and to ask questions if they do not understand what they are told or what they should do.
--- NOTE | 2024-05-06 07:53 | P.HP_ITS ---
H&P: HPI History of Present Illness Date/Time: 05/06/24 07:53 Chief Complaint: Neuro symptoms/Deficit Narrative: Patient is a 68-year-old female with a PMHx of HLD, Depression, and Anxiety presented to the ED for left sided facial droop and slurred speech. She reports working in her closet yesterday evening and bending over to pick something up and when she stood up, she noticed that her neck felt tight and her noticed that the left side of her face was drooping. When she spoke, she also noticed that her words were slurring and states that her tongue felt heavy . These symptoms lasted for approximately 30 minutes and resolved spontaneously since arriving to the emergency room. She denies any history of similar issues in the past. Upon examination, she denies any lightheadedness, dizziness, diaphoresis, shortness of breath, fevers, cough, chest pain, abdominal pain, urinary/bowel complaints, leg swelling, muscle pain, difficulty ambulating, speech changes, or confusion since her arrival to the ED. Workup in hospital included Head CT which showed No acute intracranial hemorrhage or suspicious mass effect. Chest xray was negative. Head/Neck CTA showed Indeterminate findings within the right main pulmonary artery, likely artifactual, othwerise unremarkable. Brain MRI which showed no evidence of acute infarct or hemorrhage, mild brain atrophy with deep white matter ischemic changes, and old lacunar infarcts in the basal ganglia. Initial labs showed no leukocytosis, H/H of 12.4/36.6, Na 136 and BUN 18, otherwise completely unremarkable. She states that she was tested for a UTI 2 weeks ago but only started on antibiotics 1 week ago as she was trying to treat her symptoms with at home medications. She reports urinary symptoms resolved 3 days ago. Review of Systems Review of Systems: All systems reviewed & are unremarkable except as noted in HPI and below PMFSH Past Medical History Medical History Normal cardiac stress test (~2015) Anxiety Depression HLD (hyperlipidemia) Prediabetes Surgical History Surgical History History of surgery on lower extremity H/O neck surgery H/O knee surgery (~1989) Family History Family History Mother Bladder cancer High cholesterol Heart disease Breast cancer Father Malignant neoplasm of prostate High cholesterol Heart disease Diabetes mellitus Family history of alcoholism Sibling Acute myocardial infarction Diabetes mellitus Heart disease Grandparent Cerebrovascular accident Other Family history of arthritis Family history of cardiovascular disease Family history of mental disorder Social History Social History Smoking status: Never smoker Second hand tobacco smoke exposure: Yes Alcohol intake: current Drinks per week: 4 Alcohol use details: socially Substance use: never Substance use type: does not use Do You Feel Safe in your Home?: Yes Lack of Transportation: No Lack of Food: Never True Current Housing: I Have Housing Concerned About Future Housing: No Difficulty Paying Gas/Electric Bills: No Difficulty Paying for Meds: No Currently Unemployed: No Education: High School Diploma/GED Difficulty w/ Childcare or Family Care: No Living arrangements: with family Occupation/Education: retired Gender identity (if verbalized by the patient): Female Spiritual care concerns: Yes (Jehovahs witness) Agree to blood products: No Meds Home Medications and Allergies Home Medications ?Medication ?Instructions ?Recorded ?Confirmed ?Type albuterol sulfate 90 mcg/actuation See Rx Instructions .Route 06/25/21 05/06/24 Rx aerosol inhaler .COMPLEX #8.5 grams fluticasone propionate 50 2 spray intranasal DAILY #16 grams 05/28/22 05/06/24 Rx mcg/actuation nasal spray,suspension famotidine 40 mg tablet 40 mg PO DAILY #90 tabs 11/01/23 05/06/24 Rx DHEA/PROG 15/110mcg 15 mcg BYMOUTH DAILY Compounded 11/27/23 05/06/24 History hormonal therapy montelukast 10 mg tablet 10 mg PO DAILY #90 tabs 04/08/24 05/06/24 Rx (Singulair) pantoprazole 40 mg tablet,delayed 40 mg PO QAM #90 tabs 04/08/24 05/06/24 Rx release sertraline 100 mg tablet 150 mg (1.5 x 100 mg) PO DAILY 04/08/24 05/06/24 Rx #135 tabs acetaminophen 650 mg 1,300 mg PO DAILY 05/06/24 05/06/24 History tablet,extended release (Arthritis Pain Relief (acetaminophen) ER) atorvastatin 40 mg tablet (Lipitor) 40 mg PO DAILY #90 tabs 05/06/24 Rx Allergies Allergy/AdvReac Type Severity Reaction Status Date / Time No Known Allergies Allergy Mild Verified 05/05/24 22:01 Vital Signs Vital Signs - 24 hr 05/05/24 21:24 05/05/24 21:47 05/05/24 22:00 Temperature 98 F Pulse Rate 67 86 68 Respiratory Rate 18 17 14 Blood Pressure 133/71 154/81 H Pulse Oximetry 99 99 100 Oxygen Delivery Room Air 05/05/24 22:23 05/05/24 22:30 05/05/24 22:35 Temperature Pulse Rate 64 61 Respiratory Rate 14 14 Blood Pressure Pulse Oximetry 97 98 100 Oxygen Delivery 05/05/24 22:45 05/05/24 22:47 05/05/24 23:00 Temperature Pulse Rate 63 64 78 Respiratory Rate 18 17 20 Blood Pressure 150/89 H Pulse Oximetry 96 96 95 Oxygen Delivery 05/05/24 23:15 05/05/24 23:16 05/05/24 23:33 Temperature Pulse Rate 80 76 71 Respiratory Rate 17 20 17 Blood Pressure 144/83 H Pulse Oximetry 97 97 98 Oxygen Delivery 05/05/24 23:45 05/06/24 02:35 05/06/24 02:53 Temperature Pulse Rate 71 60 Respiratory Rate 19 17 Blood Pressure 154/71 H Pulse Oximetry 96 96 96 Oxygen Delivery 05/06/24 03:42 05/06/24 04:00 05/06/24 04:41 Temperature 98.4 F Pulse Rate 70 62 Respiratory Rate 16 Blood Pressure 166/75 H Pulse Oximetry 96 Oxygen Delivery Room Air 05/06/24 05:11 Temperature 98.4 F Pulse Rate 70 Respiratory Rate 16 Blood Pressure 166/75 H Pulse Oximetry 96 Oxygen Delivery Exam Narrative: Gen - well appearing female in no acute respiratory distress who is nontoxic- appearing lying semi recumbent in bed HEENT - normocephalic. Atraumatic. Pupils equal round and reactive. Extraocular motions intact. Sclera clear and anicteric. Nares patent. Oropharynx was clear. No oral lesions. Moist mucous membranes. Tongue was midline. Palate yeimi symmetrically. No facial asymmetry. Neck - neck was supple. No dominant adenopathy, thyromegaly or masses. 2+ carotid upstrokes without bruits. Chest - lungs are clear to auscultation bilaterally. No wheezes or crackles. Breast exam was deferred. CV - heart was regular rate and rhythm. S1-S2. No murmurs gallops or rubs. Abd - abdomen was soft. Nontender. Nondistended. Positive bowel sounds. No organomegaly or masses. Ext - no clubbing, cyanosis or edema. 2+ DP pulses bilaterally. Neuro - patient is alert and oriented x4. Strength is 5/5 in both upper and lower extremities. Cranial nerves 2-12 are intact. Speech is clear. Psych - normal mood and affect. Patient is pleasant and cooperative. Skin - warm and dry. No rashes noted. H&P: Results Labs Labs: Short CBC 05/05/24 Range/Units 22:02 WBC 9.4 (4.5-10.0) K/mm3 Hgb 12.4 (12.0-15.0) g/dL Hct 36.6 L (37.0-47.0) % Plt Count 349 (150-375) k/mm3 BMP 05/05/24 22:02 Sodium 136 L Potassium 4.0 Chloride 102 Carbon Dioxide 25 BUN 18 H Creatinine 0.86 Glucose 91 Calcium 9.2 Cardiac Enzymes 05/05/24 Range/Units 22:02 Troponin I < 0.012 (0.000-0.034) ng/mL Liver Function 05/05/24 Range/Units 22:02 Total Bilirubin 0.3 (0.2-1.3) mg/dL AST 23 (14-36) U/L ALT 21 (6-35) U/L Alkaline Phosphatase 75 (38-126) U/L Albumin 4.5 (3.5-5.1) g/dL Assessment and Plan Assessment and plan (1) Brain TIA: Code(s): G45.9 - Transient cerebral ischemic attack, unspecified Status: Acute Assessment and Plan: * Head CT: No acute intracranial hemorrhage or suspicious mass effect * Head/Neck CTA: Indeterminate findings within the right main pulmonary artery, likely artifactual, otherwise unremarkable * Brain MRI: No evidence of acute infarct or hemorrhage, Mild brain atrophy with deep white matter ischemic changes * ABCD2 Score of 3 * Aspirin 324mg * q4Hr Neurological checks * Neurology Consulted, recommend continuing Aspirin and Lipitor, adding Plavix 75mg daily for 4 weeks * Monitor vitals, I&Os (2) HLD (hyperlipidemia): Code(s): E78.5 - Hyperlipidemia, unspecified Status: Acute Assessment and Plan: Continue Atorvastatin 40mg PO daily (3) Depression: Code(s): F32.9 - Major depressive disorder, single episode, unspecified Status: Acute Assessment and Plan: Continue Sertraline 150mg PO
[2024-05-06] MEDS: ASPIRIN 81 MG CHEWABLE TABLET PO (08:49)
[2024-05-06 08:54] LABS: Basophils Absolute Auto 0.1 K/mm3 (0.0-0.1); Basophils Percent Auto 0.7 % (0.2-1.2); Eosinophils Absolute Auto 0.1 K/mm3 (0-0.3); Hematocrit 38.5 % (37.0-47.0); Hemoglobin 12.6 g/dL (12.0-15.0); Immature Granulocyte Absolute 0.03 K/mm3 (0.00-0.031); Immature Granulocyte Percent A 0.4 % (0-0.5); Lymphocytes Absolute Auto 2.73 K/mm3 (0.9-3.2); Lymphocytes Percent Auto 33.1 % (18.3-44.2); Mean Corpuscular HGB Conc 32.7 g/dl (32-36); Mean Corpuscular Hemoglobin 31.6 pg (26-34); Mean Corpuscular Volume 96.5 fl (80-100); Mean Platelet Volume 8.9 fl (7.4-10.4); Monocytes Absolute Auto 0.4 K/mm3 (0.1-0.6); Monocytes Percent Auto 4.7 % (2.6-8.5); Neutrophils Percent Auto 60.1 % (45.5-73.1); Platelet Count Result 329 k/mm3 (150-375); Red Blood Count 3.99 M/mm3 (4.2-5.4); Red Cell Distribution Width 12.7 % (11.5-14.5); White Blood Count 8.3 K/mm3 (4.5-10.0)
[2024-05-06 09:07] LABS: Alanine Aminotransferase 20 U/L (6-35); Albumin Level 4.5 g/dL (3.5-5.1); Alkaline Phosphatase 74 U/L (38-126); Anion Gap 6 mmol/L (4-12); Aspartate Amino Transferase 22 U/L (14-36); Bilirubin,Total 0.4 mg/dL (0.2-1.3); Blood Urea Nitrogen 15 mg/dL (7-17); Calcium 8.9 mg/dL (8.4-10.2); Carbon Dioxide 30 mmol/L (22-30); Chloride 101 mmol/L (98-107); Estimated CRCL calculation 66 ml/min; Estimated Glomerular Filt Rate > 60; Glucose 103 mg/dL (65-110); Potassium 3.8 mmol/L (3.4-5.0); Sodium 137 mmol/L (137-145)
[2024-05-06] MEDS: SERTRALINE HCL 50 MG TABLET 150 MG PO (10:49)
[2024-05-06] MEDS: ATORVASTATIN 40 MG TABLET PO (10:49)
[2024-05-06] MEDS: FAMOTIDINE 20 MG TABLET 40 MG PO (10:49)
[2024-05-06] MEDS: MONTELUKAST SODIUM 10 MG TABLET PO (10:49)
[2024-05-06] MEDS: FLUTICASONE PROPIONATE 0.05% NA SPR 16 GM BTL (*BKC) 2 SPRAY NASAL (10:59)
--- NOTE | 2024-05-06 12:21 | WPDNEURCNPN ---
Assessment and Plan Assessment and plan (1) Brain TIA: Code(s): G45.9 - Transient cerebral ischemic attack, unspecified Status: Acute (2) Depression: Code(s): F32.9 - Major depressive disorder, single episode, unspecified Status: Acute (3) Small vessel disease, cerebrovascular: Code(s): I67.9 - Cerebrovascular disease, unspecified Status: Acute Plan 1. TIA 2. MRI suggestive of mild brain atrophy with deep white matter ischemic changes in addition to old lacunar infarct in the basal ganglia raising the possibility of small vessel disease. 3. Normal CTA of the brain. Considering the negative MRI is warranted to make sure there is no source of emboli in the heart in time patient can be continued on atorvastatin 40mg daily, aspirin 81mg daily, and Plavix 75mg daily for only 4 weeks. Patient needs to be followed by the [facility] for the ongoing problem of depression for which patient is already receiving sertraline 150mg daily. Consult date: 05/06/24 HPI: Hannah Rico is a 68 year old female Admitted to the hospital through the emergency room for an episode of being unable to talk and complaining of tongue felt thick. Along with the observation of left facial droop while she was working in her closet these findings were observed by her she was having some difficulties informing the proper words. He has been taking only local topical cream in addition to the [place] therapy. She is not allergic to any medication. She has had negative cardiac stress test in 2059 she is known to have hyperlipidemia and anxiety with depression. She currently drinks alcohol socially and is never a smoker. On initial exam in the emergency room there was no abnormal findings. Vital signs were normal. Her CBC was normal, BMP was normal, and last lab was normal also. MRI has already been done which documented only mild brain atrophy with deep white matter changes in addition to old lacunar infarct in the basal ganglia but no acute infarct or hemorrhage otherwise or any enhancing lesion. At present she is receiving atorvastatin 40mg daily, sertraline 50mg daily. Review of Systems Review of Systems: All systems reviewed & are unremarkable except as noted in HPI and below [facility] Past Medical History Medical History Normal cardiac stress test (~2015) Anxiety Depression HLD (hyperlipidemia) Prediabetes Surgical History Surgical History History of surgery on lower extremity H/O neck surgery H/O knee surgery (~1989) Family History Family History Mother Bladder cancer High cholesterol Heart disease Breast cancer Father Malignant neoplasm of prostate High cholesterol Heart disease Diabetes mellitus Family history of alcoholism Sibling Acute myocardial infarction Diabetes mellitus Heart disease Grandparent Cerebrovascular accident Other Family history of arthritis Family history of cardiovascular disease Family history of mental disorder Social History Social History Smoking status: Never smoker Second hand tobacco smoke exposure: Yes Alcohol intake: current Drinks per week: 4 Alcohol use details: socially Substance use: never Substance use type: does not use Do You Feel Safe in your Home?: Yes Lack of Transportation: No Lack of Food: Never True Current Housing: I Have Housing Concerned About Future Housing: No Difficulty Paying Gas/Electric Bills: No Difficulty Paying for Meds: No Currently Unemployed: No Education: High School Diploma/GED Difficulty w/ Childcare or Family Care: No Living arrangements: with family Occupation/Education: retired Gender identity (if verbalized by the patient): Female Spiritual care concerns: Yes (Jehovahs witness) Agree to blood products: No Meds Home Medications and Allergies Home Medications ?Medication ?Instructions ?Recorded ?Confirmed ?Type albuterol sulfate 90 mcg/actuation See Rx Instructions .Route 06/25/21 05/06/24 Rx aerosol inhaler .COMPLEX #8.5 grams fluticasone propionate 50 2 spray intranasal DAILY #16 grams 05/28/22 05/06/24 Rx mcg/actuation nasal spray,suspension famotidine 40 mg tablet 40 mg PO DAILY #90 tabs 11/01/23 05/06/24 Rx DHEA/PROG 15/110mcg 15 mcg BYMOUTH DAILY Compounded 11/27/23 05/06/24 History hormonal therapy montelukast 10 mg tablet 10 mg PO DAILY #90 tabs 04/08/24 05/06/24 Rx (Singulair) pantoprazole 40 mg tablet,delayed 40 mg PO QAM #90 tabs 04/08/24 05/06/24 Rx release sertraline 100 mg tablet 150 mg (1.5 x 100 mg) PO DAILY 04/08/24 05/06/24 Rx #135 tabs acetaminophen 650 mg 1,300 mg PO DAILY 05/06/24 05/06/24 History tablet,extended release (Arthritis Pain Relief (acetaminophen) ER) atorvastatin 40 mg tablet (Lipitor) 40 mg PO DAILY #90 tabs 05/06/24 Rx Allergies Allergy/AdvReac Type Severity Reaction Status Date / Time No Known Allergies Allergy Mild Verified 05/05/24 22:01 Vital Signs Vital Signs - 24 hr 05/05/24 21:24 05/05/24 21:47 05/05/24 22:00 Temperature 36.6 C Pulse Rate 67 86 68 Respiratory Rate 18 17 14 Blood Pressure 133/71 154/81 H Pulse Oximetry 99 99 100 Oxygen Delivery Room Air 05/05/24 22:23 05/05/24 22:30 05/05/24 22:35 Temperature Pulse Rate 64 61 Respiratory Rate 14 14 Blood Pressure Pulse Oximetry 97 98 100 Oxygen Delivery 05/05/24 22:45 05/05/24 22:47 05/05/24 23:00 Temperature Pulse Rate 63 64 78 Respiratory Rate 18 17 20 Blood Pressure 150/89 H Pulse Oximetry 96 96 95 Oxygen Delivery 05/05/24 23:15 05/05/24 23:16 05/05/24 23:33 Temperature Pulse Rate 80 76 71 Respiratory Rate 17 20 17 Blood Pressure 144/83 H Pulse Oximetry 97 97 98 Oxygen Delivery 05/05/24 23:45 05/06/24 02:35 05/06/24 02:53 Temperature Pulse Rate 71 60 Respiratory Rate 19 17 Blood Pressure 154/71 H Pulse Oximetry 96 96 96 Oxygen Delivery 05/06/24 03:42 05/06/24 04:00 05/06/24 04:41 Temperature 36.9 C Pulse Rate 70 62 Respiratory Rate 16 Blood Pressure 166/75 H Pulse Oximetry 96 Oxygen Delivery Room Air 05/06/24 05:11 05/06/24 08:00 05/06/24 08:00 Temperature 36.9 C Pulse Rate 70 87 Respiratory Rate 16 Blood Pressure 166/75 H Pulse Oximetry 96 97 Oxygen Delivery Room Air 05/06/24 08:55 Temperature Pulse Rate Respiratory Rate Blood Pressure Pulse Oximetry 97 Oxygen Delivery Room Air Exam Narrative: Examination today revealed her to be awake alert cooperative, no acute distress, head normocephalic with no cranial bruit, ear nose throat examination normal, neck supple with no cervical bruit no thyromegaly no lymphadenopathy, heart regular with no murmur, lungs clear to auscultation with no rhonchi or crepitations, abdomen is soft nontender with normal bowel sounds, neurologically she is awake alert oriented x3, speech not dysphasic not dysarthric not dysphonic, pupils round regular reacting to light equally, feels the vision full in all 4 quadrants to finger confrontation, extraocular movements are full with no nystagmus, facial sensation intact, face symmetrical, tongue in the oral cavity with no fasciculation, and able to protrude out in midline, where examination revealed her to have normal strength and tone in upper and lower extremities proximally and distally with no evidence of any abnormal reflexes , and reflexes are 2+ and symmetrical in upper and lower extremities. And plantars are downgoing. Is no evidence of ataxia or dysmetria on [id number] or heel to knee to rose. Results Labs 05/06/24 08:42 05/06/24 08:42 Labs: Short CBC 05/05/24 05/06/24 Range/Units 22:02 08:42 WBC 9.4 8.3 (4.5-10.0) K/mm3 Hgb 12.4 12.6 (12.0-15.0) g/dL Hct 36.6 L 38.5 (37.0-47.0) % Plt Count 349 329 (150-375) k/mm3 BMP 05/05/24 05/06/24 22:02 08:42 Sodium 136 L 137 Potassium 4.0 3.8 Chloride 102 101 Carbon Dioxide 25 30 BUN 18 H 15 Creatinine 0.86 0.81 Glucose 91 103 Calcium 9.2 8.9 Cardiac Enzymes 05/05/24 Range/Units 22:02 Troponin I < 0.012 (0.000-0.034) ng/mL Liver Function 05/05/24 05/06/24 Range/Units 22:02 08:42 Total Bilirubin 0.3 0.4 (0.2-1.3) mg/dL AST 23 22 (14-36) U/L ALT 21 20 (6-35) U/L Alkaline Phosphatase 75 74 (38-126) U/L Albumin 4.5 4.5 (3.5-5.1) g/dL
[2024-05-06] MEDS: ACETAMINOPHEN 325 MG TABLET 650 MG BY MOUTH (16:47)
[2024-05-07 00:02] VITALS: PULSE 74
[2024-05-07 04:02] VITALS: PULSE 66
[2024-05-07 06:00] VITALS: BP 115/57; PULSE 64; RESP 18; TEMP 36.5; O2SAT 98
--- NOTE | 2024-05-07 06:00 | ECHO_ITS ---
Patient Info Name: Hannah Rico Age: 68 years : 1955 Gender: Female Ht: 66 in Wt: 189 lbs BSA: 2.02 m2 HR: 64 bpm BP: 115 / 57 mmHg Heart Rhythm: Sinus Rhythm Technical Quality: Good Exam Date: 05/07/2024 12:55 PM Exam Location: Echo Lab Patient Status: Inpatient Admit Date: 05/06/2024 Staff Ordering Physician: Shiva Ramon MD Surgical Scrub Technician: Brenna Russo RDCS Attending Provider: Asa Urban PA-C Referring Physician: Yenny ARREDONDO; Exam Type: CA echo doppler w bubble study Study Info Indications - TIA Complete two-dimensional, color flow and Doppler transthoracic echocardiogram is performed. Summary 1. Left ventricular chamber dimension is normal. 2. Left ventricular systolic function is normal, estimated at >70%. 3. The left ventricular diastolic function is grade I diastolic dysfunction. 4. Right ventricular systolic function is normal. 5. Left atrial chamber dimension is moderately enlarged. 6. Intact interatrial septum visualized by color flow and agitated saline imaging. Negative bubble study. 7. There is mild to moderate aortic valve regurgitation. 8. There is mild mitral valve regurgitation. 9. There is mild tricuspid valve regurgitation. Left Ventricle Left ventricular chamber dimension is normal. Left ventricular systolic function is normal, estimated at >70%. There is no increased left ventricular wall thickness. The left ventricular diastolic function is grade I diastolic dysfunction. Right Ventricle Right ventricular chamber dimension is normal. Right ventricular systolic function is normal. Left Atria Left atrial chamber dimension is moderately enlarged. Right Atria Right atrial chamber dimension is normal. Atrial Septum Intact interatrial septum visualized by color flow and agitated saline imaging. Negative bubble study. Aortic Valve The aortic valve is probable trileaflet. There is no aortic valve stenosis. There is mild to moderate aortic valve regurgitation. There is mild aortic valve calcification. Pulmonic Valve The pulmonic valve is not well visualized. There is no pulmonic regurgitation. Mitral Valve There is mild mitral valve regurgitation. Tricuspid Valve There is mild tricuspid valve regurgitation. Pericardium/Pleural The pericardium appears epicardial fat pad. There is no pericardial effusion. Inferior Vena Cava Normal inferior vena cava with >50% collapse upon inspiration consistent with normal right atrial pressure, 3 mmHg. Aorta The aortic root size at the sinus of Valsalva is normal. Left Ventricular Outflow Tract Name Value Normal LVOT 2D LVOT Diameter 2.0 cm LVOT Doppler LVOT Peak Gradient 13 mmHg LVOT Mean Gradient 7 mmHg LVOT VTI 37 cm LVOT VTI/AV VTI Ratio 1.0 LVOT Stroke Volume 111 ml LVOT CO 7.2 l/min LVOT CI 3.5 l/min/m2 Pulmonic Valve Name Value Normal RVOT Doppler RVOT Peak Gradient 4 mmHg PV Doppler PV Peak Gradient 5 mmHg Mitral Valve Name Value Normal MV Doppler MV Decel Lewis 392 cm/s2 MV PHT 59 ms MV Area (PHT) 3.8 cm2 4.0-5.0 MV Diastolic Function MV E Peak Velocity 79 cm/s MV A Peak Velocity 71 cm/s MV E/A 1.1 MV Decel Time 202 ms Tricuspid Valve Name Value Normal TV Regurgitation Doppler TR Peak Velocity 271 cm/s TR Peak Gradient 21 mmHg Estimated PAP/RSVP RA Pressure 3 mmHg <=5 PA Systolic Pressure 32 mmHg <36 RV Systolic Pressure 32 mmHg <36 Aorta Name Value Normal Ascending Aorta Ao Root Diameter (MM) 2.9 cm Ao Root Diam Index (MM) 1.4 cm/m2 Aortic Valve Name Value Normal AV Doppler AV Peak Velocity 202 cm/s AV Peak Gradient 16 mmHg AV Mean Gradient 8 mmHg AV VTI 39 cm AV Area (Cont Eq VTI) 2.9 cm2 >=3.0 AV Area (Cont Eq Kirk) 2.7 cm2 AV Regurgitation 2D LVOT Area 3.0 cm2 AV Regurgitation Doppler AR Decel Time 1,581 ms AR Decel Lewis 266 cm/s2 AR PHT 459 ms Ventricles Name Value Normal LV Dimensions 2D/MM IVS Diastolic Thickness (2D) 0.9 cm 0.6-1.0 LVID Diastole (2D) 4.5 cm 3.8-5.2 LVIW Diastolic Thickness (2D) 0.9 cm 0.6-0.9 LVID Systole (2D) 2.9 cm 2.2-3.5 LVOT Diameter 2.0 cm LV Mass (2D Cubed) 127.63 g 67.00-162.00 LV Mass Index (2D Cubed) 63 g/m2 43-95 Relative Wall Thickness (2D) 0.39 LV Fractional Shortening/Ejection Fraction 2D/MM LV Fractional Shortening (2D) 35 % 27-45 LV EF (2D Teichstephen) 65 % 54-74 LV Diastolic Volume (4C MOD) 87 ml LV EF (4C MOD) 75 % LV Diastolic Volume (2C MOD) 57 ml LV EF (2C MOD) 70 % LV Diastolic Volume (BP MOD) 72 ml 46-106 LV Diastolic Volume Index (BP MOD) 36 ml/m2 29-61 LV Systolic Volume (BP MOD) 20 ml 14-42 LV Systolic Volume Index (BP MOD) 10 ml/m2 8-24 LV EF (BP MOD) 72 % 54-74 LV Diastolic Length (4C) 8.0 cm LV Systolic Length (4C) 6.9 cm LV Stroke Volume (4C MOD) 65 ml Atria Name Value Normal LA Dimensions LA Dimension (MM) 4.5 cm 2.7-3.8 LA Volume (4C A-L) 90 ml LA Volume (BP A-L) 91 ml RA Dimensions RA Area (4C) 17.8 cm2 <=18.0 Report Signatures
[2024-05-07 08:00] VITALS: PULSE 62
[2024-05-07] MEDS: FLUTICASONE PROPIONATE 0.05% NA SPR 16 GM BTL (*BKC) 2 SPRAY NASAL (08:21)
[2024-05-07] MEDS: CLOPIDOGREL BISULFATE 75 MG TABLET PO (08:22)
[2024-05-07] MEDS: SERTRALINE HCL 50 MG TABLET 150 MG PO (08:22)
[2024-05-07] MEDS: ACETAMINOPHEN 325 MG TABLET 650 MG BY MOUTH (08:22)
[2024-05-07] MEDS: MONTELUKAST SODIUM 10 MG TABLET PO (08:23)
[2024-05-07] MEDS: FAMOTIDINE 20 MG TABLET 40 MG PO (08:23)
[2024-05-07] MEDS: ATORVASTATIN 40 MG TABLET PO (08:23)
[2024-05-07] MEDS: ASPIRIN 81 MG CHEWABLE TABLET PO (08:24)
--- NOTE | 2024-05-07 08:51 | P.PNIM_ITS ---
Progress Note: A&P Assessment and Plan (1) Brain TIA: Code(s): G45.9 - Transient cerebral ischemic attack, unspecified Status: Acute Assessment and Plan: * Head CT: No acute intracranial hemorrhage or suspicious mass effect * Head/Neck CTA: Indeterminate findings within the right main pulmonary artery, likely artifactual, otherwise unremarkable * Brain MRI: No evidence of acute infarct or hemorrhage, Mild brain atrophy with deep white matter ischemic changes * ABCD2 Score of 3 * Aspirin 324mg * Neurological checks * Neurology Consulted, recommend continuing Aspirin and Lipitor, adding Plavix 75mg daily for 4 weeks * Monitor vitals, I&Os * Echo with bubble study (2) HLD (hyperlipidemia): Code(s): E78.5 - Hyperlipidemia, unspecified Status: Acute Assessment and Plan: Continue Atorvastatin 40mg PO daily (3) Depression: Code(s): F32.9 - Major depressive disorder, single episode, unspecified Status: Acute Assessment and Plan: Continue Sertraline 150mg PO Time Spent With Patient Time with patient: 25 - 35 minutes Subjective Date/time seen: 05/07/24 08:51 Interval history: 68-year-old female with a PMHx of HLD, Depression, and Anxiety presented to the ED for left sided facial droop and slurred speech. Review of Systems Review of Systems: All systems reviewed & are unremarkable except as noted in HPI and below Exam Narrative: Gen - well appearing female in no acute respiratory distress who is nontoxic- appearing lying semi recumbent in bed HEENT - normocephalic. Atraumatic. Pupils equal round and reactive. Extraocular motions intact. Sclera clear and anicteric. Nares patent. Oropharynx was clear. No oral lesions. Moist mucous membranes. Tongue was midline. Palate yeimi symmetrically. No facial asymmetry. Neck - neck was supple. No dominant adenopathy, thyromegaly or masses. 2+ carotid upstrokes without bruits. Chest - lungs are clear to auscultation bilaterally. No wheezes or crackles. Breast exam was deferred. CV - heart was regular rate and rhythm. S1-S2. No murmurs gallops or rubs. Abd - abdomen was soft. Nontender. Nondistended. Positive bowel sounds. No organomegaly or masses. Ext - no clubbing, cyanosis or edema. 2+ DP pulses bilaterally. Neuro - patient is alert and oriented x4. Strength is 5/5 in both upper and lower extremities. Cranial nerves 2-12 are intact. Speech is clear. Psych - normal mood and affect. Patient is pleasant and cooperative. Skin - warm and dry. No rashes noted. Objective Data Vital Signs Vital Signs: Vital Signs - 24 hr 05/06/24 08:55 05/06/24 12:00 05/06/24 14:00 Temperature 96.8 F L Pulse Rate 66 62 Respiratory Rate 18 Blood Pressure 114/59 L Pulse Oximetry 97 97 Oxygen Delivery Room Air 05/06/24 16:00 05/06/24 20:02 05/06/24 21:34 Temperature Pulse Rate 63 71 Respiratory Rate Blood Pressure Pulse Oximetry 98 Oxygen Delivery Room Air 05/06/24 21:43 05/07/24 00:02 05/07/24 04:02 Temperature 98.6 F Pulse Rate 70 74 66 Respiratory Rate 18 Blood Pressure 131/65 Pulse Oximetry 98 Oxygen Delivery 05/07/24 06:00 Temperature 97.7 F Pulse Rate 64 Respiratory Rate 18 Blood Pressure 115/57 L Pulse Oximetry 98 Oxygen Delivery Intake/Output Intake/Output: Intake & Output 05/04/24 05/05/24 05/06/2419/25 23:59 23:59 23:59 23:59 Intake Total 1130 200 Balance 1130 200 Meds/Results Medications: Active Medications Generic Name Dose Route Start Last Admin Trade Name Freq PRN Reason Stop Dose Admin Acetaminophen 650 mg 05/06/24 09:00 05/07/24 08:22 Acetaminophen 325 Mg Tablet BY MOUTH 650 mg BID ENA Administration Albuterol 1 puff 05/06/24 10:05 Albuterol Sulfate (*Sp) Aerosol 1 Puff INHALATION Q4H PRN SHORTNESS OF BREATH 0 WHEEZING Aspirin 81 mg 05/06/24 08:00 05/07/24 08:24 Aspirin 81 Mg Chewable Tablet PO 81 mg DAILY@0800 ENA Administration Atorvastatin Calcium 40 mg 05/06/24 09:00 05/07/24 08:23 Atorvastatin 40 Mg Tablet PO 40 mg DAILY ENA Administration Clopidogrel Bisulfate 75 mg 05/07/24 09:00 05/07/24 08:22 Clopidogrel Bisulfate 75 Mg Tablet PO 75 mg QAM ENA Administration Famotidine 40 mg 05/06/24 09:00 05/07/24 08:23 Famotidine 20 Mg Tablet PO 40 mg DAILY ENA Administration Fluticasone Propionate 2 spray 05/06/24 09:00 05/07/24 08:21 Fluticasone Propionate 0.05% Na Spr 16 Gm Btl (*Bkc) NASAL 2 spray DAILY ENA Administration Miscellaneous Information 1 each 05/06/24 00:01 Dhea/Prog 15/110mcg 15 Mcg Is Nonformulary. Can She Use Home Supply? XX 06/05/24 00:00 CLARIFY ENA Montelukast Sodium 10 mg 05/06/24 09:00 05/07/24 08:23 Montelukast Sodium 10 Mg Tablet PO 10 mg DAILY ENA Administration Non-Formulary Medication 15 mcg 05/07/24 09:00 Dhea/Prog 15/110mcg PO 06/06/24 08:59 DAILY [facility] Perflutren Lipid Microsphere 0 ml 05/06/24 00:44 Perflutren Lipid Microspheres 1.5 Ml Vial Diluted To 10 Ml Total Volume IV PUSH 05/09/24 00:45 ONCE PRN adequate visualization Protocol Sertraline HCl 150 mg 05/06/24 09:00 05/07/24 08:22 Sertraline Hcl 50 Mg Tablet PO 150 mg DAILY ENA Administration Radiology Results: ITS Impressions Head CT 05/05/24 22:17 Impression: No acute intracranial hemorrhage or suspicious mass effect. Chest X-Ray 05/05/24 23:13 IMPRESSION: Chronic interstitial change, without focal infiltrate or effusion. Head/Neck CTA 05/05/24 23:29 IMPRESSION: Indeterminate findings within the right main pulmonary artery, likely artifactual for which follow-up examination with a CTA of the chest is recommended (following excretion of the current contrast bolus). Otherwise unremarkable CTA head and neck. Percent stenosis per NASCET criteria is 0% Brain MRI 05/06/24 08:41 IMPRESSION: 1. No evidence of acute infarct or hemorrhage. 2. Mild brain atrophy with deep white matter ischemic changes. 3. Old Lacunar infarcts in the basal ganglia. 4. No enhancing lesions seen. Labs Labs: Laboratory Results - last 24 hr 05/06/24 08:42 WBC 8.3 RBC 3.99 L Hgb 12.6 Hct 38.5 MCV 96.5 MCH 31.6 MCHC 32.7 RDW 12.7 Plt Count 329 MPV 8.9 Immature Gran % (Auto) 0.4 Neut % (Auto) 60.1 Lymph % (Auto) 33.1 Holmes % (Auto) 4.7 Eos % (Auto) 1.0 Baso % (Auto) 0.7 Lymph # (Auto) 2.73 Holmes # (Auto) 0.4 Eos # (Auto) 0.1 Baso # (Auto) 0.1 Abs Immat Gran (auto) 0.03 Absolute Neuts (auto) 5.0 Absolute Nucleated RBC 0.000 Nucleated RBC % 0.0 Sodium 137 Potassium 3.8 Chloride 101 Carbon Dioxide 30 Anion Gap 6 BUN 15 Creatinine 0.81 Estim Creat Clear Calc 66 Estimated GFR > 60 Glucose 103 Calcium 8.9 Total Bilirubin 0.4 AST 22 ALT 20 Alkaline Phosphatase 74 Total Protein 7.0 Albumin 4.5
[2024-05-07 12:00] VITALS: PULSE 64
[2024-05-07 14:00] VITALS: BP 124/74; PULSE 65; RESP 16; TEMP 36.4; O2SAT 99
--- NOTE | 2024-05-07 15:47 | P.DS_ITS ---
DS: Admitting Diagnosis Discharge Date 05/07/2024 Admitting Diagnosis TIA DS: Discharge Diagnosis Discharge Diagnosis (1) Brain TIA: Code(s): G45.9 - Transient cerebral ischemic attack, unspecified Status: Acute Assessment and Plan: * Head CT: No acute intracranial hemorrhage or suspicious mass effect * Head/Neck CTA: Indeterminate findings within the right main pulmonary artery, likely artifactual, otherwise unremarkable * Brain MRI: No evidence of acute infarct or hemorrhage, Mild brain atrophy with deep white matter ischemic changes * ABCD2 Score of 3 * Aspirin 324mg * Neurological checks * Neurology Consulted, recommend continuing Aspirin and Lipitor, adding Plavix 75mg daily for 4 weeks * Monitor vitals, I&Os * Echo with bubble study EF 70%, grade 1 diastolic dysfunction, no PFO * Recommending follow-up outpatient with Cardiology (2) HLD (hyperlipidemia): Code(s): E78.5 - Hyperlipidemia, unspecified Status: Acute Assessment and Plan: Continue Atorvastatin 40mg PO daily (3) Depression: Code(s): F32.9 - Major depressive disorder, single episode, unspecified Status: Acute Assessment and Plan: Continue Sertraline 150mg PO DS: Summary Hospital Course Reason for hospitalization: TIA Hospital Course: 68-year-old female past medical history hyperlipidemia, depression anxiety presents the hospital with left-sided facial droop. She states that day of admission her notices that left side her face is drooping and that she had slurred speech. The symptoms up spontaneously resolving. Head CT showed no acute findings. Brain MRI showed no acute infarct, There was a old lacunar i nfarct seen in the basal ganglia. Echocardiogram showed EF of over 70%. Palpable study was negative. She was recommended to follow up with Cardiology outpatient, for grade 1 diastolic dysfunction. Patient is euvolemic. Patient was seen by Neurology with recommendations to continue statin, and added daily aspirin and Plavix for 4 weeks. On day of discharge patient's around deficits. Status at Discharge Functional status at discharge: independent ambulation Time Spent with Patient Time attestation: Total time spent providing and/or coordinating discharge services: Time spent: Greater than 30 minutes Exam Narrative: Gen - well appearing female in no acute respiratory distress who is nontoxic- appearing lying semi recumbent in bed HEENT - normocephalic. Atraumatic. Pupils equal round and reactive. Extraocular motions intact. Sclera clear and anicteric. Nares patent. Oropharynx was clear. No oral lesions. Moist mucous membranes. Tongue was midline. Lips symmetrically. No facial asymmetry. Neck - neck was supple. No dominant adenopathy, thyromegaly or masses. 2+ carotid upstrokes without bruits. Chest - lungs are clear to auscultation bilaterally. No wheezes or crackles. Breast exam was deferred. CV - heart was regular rate and rhythm. S1-S2. No murmurs gallops or rubs. Abd - abdomen was soft. Nontender. Nondistended. Positive bowel sounds. No organomegaly or masses. Ext - no clubbing, cyanosis or edema. 2+ DP pulses bilaterally. Neuro - patient is alert and oriented x4. Strength is 5/5 in both upper and lower extremities. Cranial nerves 2-12 are intact. Speech is clear. Psych - normal mood and affect. Patient is pleasant and cooperative. Skin - warm and dry. No rashes noted. DS: Data Imaging Radiologist's impression: MRI brain was performed without and with contrast. 17 cc ProHance was given IV. FINDINGS: BONES: Normal. CRANIOCERVICAL JUNCTION: normal. PITUITARY: Normal. MAJOR INTRACRANIAL VESSELS: Normal flow void. OPTIC NERVES AND CRANIAL NERVES VII AND VIII COMPLEXES: Grossly normal. BRAIN PARENCHYMA AND CSF SPACES: Mild nonspecific T2 white matter hyperintensities are seen in a bilateral periventricular and deep white matter distribution which are likely related to chronic ischemic small vessel disease. Mild diffuse cortical atrophy. Old lacunar infarct in the left and the right basal ganglia. Choroidal fissure cysts are not excluded. Lacunar infarct in the right cerebellar hemisphere. The brainstem and cerebellum are normal. No acute or chronic intracranial hemorrhage. No extra axial fluid collections. Diffusion weighted and ADC mapping images reveal no recent ischemia. No midline shift or mass effect. PARANASAL SINUSES: Bilateral ethmoid sinus disease. MASTOIDS: Left mastoid air cells effusion. SUPERFICIAL/SURROUNDING SOFT TISSUES: Normal. IMPRESSION: 1. No evidence of acute infarct or hemorrhage. 2. Mild brain atrophy with deep white matter ischemic changes. 3. Old Lacunar infarcts in the basal ganglia. 4. No enhancing lesions seen. CTA brain carotid Ordering provider: Shiva Ramon MD History: Transient left facial droop Comparison: None. Reference is made to a carotid duplex ultrasound, performed 11/14/2021 Technique: CT angiogram head and neck was performed following timed intravenous injection of contrast. Thin slice axial images and reformatted coronal images were obtained. Three dimensional reformatted images of the brain were also obtained using a codesya workstation. DLP: 1082 mGy-cm FINDINGS: HEAD: --ANTERIOR AND MIDDLE CEREBRAL ARTERIES AND BRANCHES: Normal caliber and co ntour. --INTERNAL CAROTID ARTERIES: Mild atheromatous disease but no significant stenosis. No occlusion. --BASILAR ARTERY AND BRANCHES: Normal caliber and contour. No significant atheromatous disease. --POSTERIOR CEREBRAL ARTERIES: Normal caliber and contour --POSTERIOR COMMUNICATING ARTERIES: Not visualized which is probably related to congenital absence or small size. --ANEURYSM: None visualized. --BRAIN: Please refer to report of CT head performed the same day. --BONES AND SUPERFICIAL SOFT TISSUES: Please refer to report of CT head performed the same day. --PARANASAL SINUSES AND MASTOIDS: Please refer to report of CT head done the same day. NECK: --RIGHT CERVICAL CAROTID SYSTEM: Mild atheromatous disease of the carotid bulb and proximal internal carotid artery without significant stenosis. Percent stenosis per NASCET criteria is 0% No carotid dissection. --LEFT CERVICAL CAROTID SYSTEM: Mild atheromatous disease of the carotid bulb and proximal internal carotid artery without significant stenosis. Percent stenosis per NASCET criteria is 0%. No carotid dissection. --VERTEBRAL ARTERIES: Diminutive in caliber and unremarkable in contour. --VISUALIZED AORTIC ARCH AND BRANCHING VESSELS: Mild atheromatous disease but no significant stenosis. Indeterminate findings within the right main pulmonary artery, likely artifactual for which follow-up examination with a CTA of the chest is recommended (following excretion of the current contrast bolus). --SOFT TISSUES: Unremarkable. --CERVICAL SPINE: Age appropriate degenerative changes. Anterior fixation hardware at the levels of C4 through C7. IMPRESSION: Indeterminate findings within the right main pulmonary artery, likely artifactual for which follow-up examination with a CTA of the chest is recommended (following excretion of the current contrast bolus). Otherwise unremarkable CTA head and neck. Percent stenosis per NASCET criteria is 0% CT head without contrast. COMPARISON: None TECHNIQUE: Axial imaging of the head performed from the skull base to the vertex without IV contrast. Sagittal and coronal reformations obtained. DLP: 605 mGy-cm FINDINGS: The ventricles are normal in size, shape and position. There is no mass, mass effect or midline shift. There is no abnormal extra-axial fluid collection or intracranial hemorrhage. Visualized paranasal sinuses are clear. The mastoid air cells are well aerated. No acute displaced fractures within the overlying cranium. Impression: No acute intracranial hemorrhage or suspicious mass effect. Complete two-dimensional, color flow and Doppler transthoracic echocardiogram is performed. Summary 1. Left ventricular chamber dimension is normal. 2. Left ventricular systolic function is normal, estimated at >70%. 3. The left ventricular diastolic function is grade I diastolic dysfunction. 4. Right ventricular systolic function is normal. 5. Left atrial chamber dimension is moderately enlarged. 6. Intact interatrial septum visualized by color flow and agitated saline imaging. Negative bubble study. 7. There is mild to moderate aortic valve regurgitation. 8. There is mild mitral valve regurgitation. 9. There is mild tricuspid valve regurgitation. Discharge Plan Discharge Consulting providers: Colby Hogan; Jud Diaz; Swetha Pierre; Narciso Dickey; Rosario Tapia Discharging Clinician: Jud Diaz Anticipated Discharge Date/Time: 05/07/24 15:53 Patient Disposition: Home, Self-Care Activity: june shower Diet: regular Discharge Instructions: Discharge instructions: Take medications as prescribed New medications prescribed: aspirin 81mg daily, and Plavix 75mg daily for only 4 weeks. Echocardiogram showed an injection fraction over 70% which is abnormal, and grade 1 diastolic dysfunction. Currently you are not symptomatic. Recommend to follow up with Cardiology outpatient, I table keeper has been placed in your discharge summary however you can go to any table keeper he would like. You are activity as tolerated Monitor blood pressures Avoid social areas, you wear a mask when in social settings Encouraged to continue with yearly vaccinations Return to the emergency department if he developed sudden shortness of breath, chest pain, nausea, vomiting, upset stomach or intractable diarrhea Return to the emergency department if you develop fever greater than 101.5 Follow-up with: Your primary care physician within 1-2 weeks for post hospitalization check up Follow with cardiology in the next month Thank you for choosing [facility] for your healthcare needs Patient Instructions: Antibiotic Form, Clopidogrel (By mouth) Patient Language: Frisian Stand Alone Forms: General Discharge Information Follow-up/Referrals: Ernie Mark MD [Physician] - Swetha Pierre MD [Physician] - 4 Weeks (EF over 70%, grade 1 diastolic dysfunction) Discharge Medications: New clopidogrel 75 mg Tablet 75 mg PO QAM 30 Days Qty: 30 0RF aspirin [Children's Aspirin] 81 mg Tablet,Chewable 81 mg PO DAILY@0800 30 Days Qty: 30 0RF Continued DHEA/PROG 15/110mcg 15 mcg BYMOUTH DAILY Rx Instructions: orally; acetaminophen [Arthritis Pain Relief (acetam)] 650 mg tablet extended release 1,300 mg PO DAILY albuterol sulfate 90 mcg/actuation HFA aerosol inhaler See Rx Instructions .ROUTE .COMPLEX Qty: 8.5 3RF Dose Instruction: INHALE 1 PUFF BY MOUTH EVERY 4 HOURS NEEDED FOR SHORTNESS OF BREATH OR WHEEZING Rx Instructions: INHALE 1 PUFF BY MOUTH EVERY 4 HOURS NEEDED FOR SHORTNESS OF BREATH OR WHEEZING fluticasone propionate 50 mcg/actuation spray,suspension 2 spray intranasal DAILY Qty: 16 3RF Rx Instructions: administer into each nostril famotidine 40 mg tablet 40 mg PO DAILY Qty: 90 3RF montelukast [Singulair] 10 mg tablet 10 mg PO DAILY Qty: 90 2RF pantoprazole 40 mg tablet,delayed release (DR/EC) 40 mg PO QAM Qty: 90 3RF sertraline 100 mg tablet 150 mg PO DAILY Qty: 135 3RF No Action atorvastatin [Lipitor] 40 mg tablet 40 mg PO DAILY Qty: 90 3RF Date of admission: 05/06/24 00:45 Primary Care Provider: Deirdre Morelos Admitting Provider: Stacey Arias Attending physician on admission: Asa Urban Condition: Stable Quality VTE Prophylaxis VTE prophylaxis: mechanical ordered Hospitalist MIPS Heart Failure (Exclusion) Patient has history of Heart Transplant or Left Ventricular Assistive Device?: No IF YES, STOP HERE Heart Failure (Qualifier) Patient has current or prior documentation of LVEF less than or equal to 40%, or mod/servere depressed LVSF?: No IF NO, STOP HERE
== END 2024-05-07 16:30 | disposition home or self-care (01) ==
LOC: ANHED 23:57 → ANH3MEDSUR 05-06 01:44
PROVIDERS: Admitting Provider Internal Medicine; Emergency Provider Emergency Medicine; PCP Nurse Practitioner Adult Health; Visit Provider Physician Assistant
DX: G45.9 Transient cerebral ischemic attack, unspecified (principal); E78.5 Hyperlipidemia, unspecified; F32.9 Major depressive disorder, single episode, unspecified; F41.9 Anxiety disorder, unspecified; I67.9 Cerebrovascular disease, unspecified; R73.03 Prediabetes; Z79.51 Long term (current) use of inhaled steroids; Z79.899 Other long term (current) drug therapy
CPT/HCPCS: 36415; 70450; 70496; 70498; 70553; 71045; 80053; 82948; 84484; 85025; 85610; 85730; 93005; 93306; 96374; 96375; 99285; A9270; A9579; G0378; Q9967

== ENCOUNTER 2024-06-19 11:42 | Outpatient (CLI) | payer MEDICARE, SELFPAY ==
--- NOTE | ~2024-06-19 | US_ITS ---
Pelvic ultrasound. Clinical History: Abnormal uterine bleeding Technique: Realtime transabdominal and transvaginal scanning of the pelvis was performed. Color flow Doppler and Doppler spectral analysis were performed. Findings: The uterus is anteverted. The endometrial stripe has a thickness of 4 mm. Fundal fibroid m easures 1.8 cm in diameter. The right ovary measures 3.4 x 2.1 x 1.9 cm. No significant right ovarian or adnexal mass is seen. The left ovary is not visualized. No significant left ovarian or adnexal mass is seen. There is no evidence of free fluid in the cul de sac. Impression: 1.8 cm fibroid. Left ovary not seen. Reviewed, dictated and finalized at location . Impression: 1.8 cm fibroid. Left ovary not seen.
== END 2024-06-19 11:43 | disposition home or self-care (01) ==
LOC: CHSIMG 11:43
PROVIDERS: PCP Nurse Practitioner Adult Health; Visit Provider Nurse Practitioner Adult Health
DX: N93.9 Abnormal uterine and vaginal bleeding, unspecified (principal); D25.9 Leiomyoma of uterus, unspecified
CPT/HCPCS: 76830; 76856

== ENCOUNTER 2024-09-08 01:32 | Day surgery (SDC) | payer MEDICARE, SELFPAY ==
[2024-08-29 10:58] VITALS: BMI 30.9
--- NOTE | 2024-08-29 11:14 | PC.NURSE ---
Report to the Outpatient Waiting Room, entrance under the green pavilion located off [facility], at time __0600am on date . Planned Procedure Time: __0730am .? Time changes happen often and if your time is changed the preop area will call you the afternoon before. - You and your visitor will be asked to self-screen and do not enter if you have any COVID symptoms. Please call surgeon if you need to reschedule. - A mask is optional within the hospital at this time. Patients may have clear liquids (water, carbonated beverages, clear teas, apple juice) until 3 hours prior to surgery with a maximum of 20 ounces. - No food from midnight until time of surgery and no smoking, or chewing tobacco (or any form of nicotine). No chewing gum, candy or mints. (04:30am) Take only the following medications with a SIP of water on the morning of surgery: _Sertraline, Tylenol if needed, Albuteral Inhaler DO NOT STOP ANY OF YOUR OTHER PRESCRIPTION MEDICATIONS PRIOR TO SURGERY EXCEPT THE FOLLOWING Hold all vitamins and supplements for 3 days per anesthesiologist. Date last dose is 09/04/24 Medications to discontinue per physician _Pt to check W Dr Butcher regarding ASA. Date to take last dose Pending Please no make-up, nail tajik, hairspray, perfume, deodorant, or body powder the day of surgery.? No jewelry (including any body piercings) or valuables the day of surgery, leave them at home.? Please take a shower or bath the night before, or the morning of, surgery with an antibacterial soap.? Wear comfortable, loose fitting clothing.? - Jewelry must be removed prior to entering the operating room.? Rings and piercings that are not removed may be cut off. - The hospital will not accept responsibility for valuables.? - Please leave all valuables, including medications, at home the day of surgery. If you are going home after surgery, a licensed stacker driver must drive you home.? - NO public transportation without another adult if you receive anesthesia. - We recommend that an adult stay with you for 24 hours following discharge. - We also recommend that you do not drive, make important decision, drink alcoholic beverages, or take any drugs that were not prescribed by your health care provider for at least 24 hours after your discharge time. Follow any additional instructions given to you from your surgeon. Telephone instructions given to ___Patient and asked if any additional questions and then verbalized understanding. Patient advised to call surgeon office or pre surgery nurse liaison [phone] if any additional questions.
--- NOTE | 2024-09-07 14:35 | P.HP_ITS ---
H&P: HPI History of Present Illness Date/Time: 09/07/24 14:35 Chief Complaint: PMB Narrative: Hannah is a postmenopausal 68yo G0 who presents to discuss PMB. She went through menopause naturally; but then started hormones earlier this year with a hormone clinic due to low libido. She thinks she was on estradiol, progesterone and testosterone. She feels like it helped her a little bit, but has caused all sorts of issues. She began having bleeding at end of May/beginning of June. She bleed on and off for 3 weeks; needed to change her liner a couple times daily. Her PCP ordered a [employer]SEMBLER US which showed a small fibroid, but thin lining of 4mm. She has not had any further bleeding. She is sexually active occasionally but has significant vaginal dryness and pain. Has HLD, pre-DM, and a recent TIA. Review of Systems Constitutional: Constitutional: Denies chills, Denies fever(s) and Denies headache(s) Eyes: Eyes: Denies change in vision ENT: Denies dizziness and Denies headache(s) Cardiovascular: Cardiovascular: Denies chest pain and Denies dyspnea Respiratory: Respiratory: Denies cough and Denies dyspnea Gastrointestinal: Gastrointestinal: Denies abdominal pain and Denies change in stool character Genitourinary: Genitourinary: Reports abnormal vaginal bleeding, Denies pelvic pain, Denies vaginal discharge, Denies vaginal odor and Denies vaginal pruritus Neurologic: Denies dizziness and Denies headache(s) Psychiatric: Psychiatric: Denies anxiety and Denies depression PMFSH Past Medical History Medical History Brain TIA Normal cardiac stress test (~2015) Anxiety Depression HLD (hyperlipidemia) Prediabetes Surgical History Surgical History History of surgery on lower extremity H/O neck surgery H/O knee surgery (~1989) Family History Family History Mother Bladder cancer High cholesterol Heart disease Breast cancer Father Malignant neoplasm of prostate High cholesterol Heart disease Diabetes mellitus Family history of alcoholism Sibling Acute myocardial infarction Diabetes mellitus Heart disease Grandparent Cerebrovascular accident Other Family history of arthritis Family history of cardiovascular disease Family history of mental disorder Social History Social History (Updated 08/04/24 @ 13:42 by Yumiko Kwong CMA) Smoking packs per day: 0.5 Smoking cigarettes per day: 10.0 Years smoked: 30 Smoking pack-years: 15.00 Smoking status: Former smoker Tobacco type: cigarettes Second hand tobacco smoke exposure: Yes Smoking end date: 02/20/04 Alcohol intake: current Drinks per week: 2 Alcohol use details: socially Substance use: never Substance use type: does not use Do You Feel Safe in your Home?: Yes Lack of Transportation: No Lack of Food: Never True Current Housing: Decline to Answer Concerned About Future Housing: Decline to Answer Difficulty Paying Gas/Electric Bills: Decline to Answer Difficulty Paying for Meds: Decline to Answer Currently Unemployed: Decline to Answer Education: Decline to Answer Difficulty w/ Childcare or Family Care: Decline to Answer Living arrangements: with family Additional living arrangements comments: Occupation/Education: retired Gender identity (if verbalized by the patient): Female Spiritual care concerns: No Agree to blood products: No Meds Home Medications and Allergies Home Medications ?Medication ?Instructions ?Recorded ?Confirmed ?Type albuterol sulfate 90 mcg/actuation See Rx Instructions .Route 06/25/21 08/29/24 Rx aerosol inhaler .COMPLEX #8.5 grams fluticasone propionate 50 2 spray intranasal DAILY #16 grams 05/28/22 08/29/24 Rx mcg/actuation nasal spray,suspension montelukast 10 mg tablet 10 mg PO DAILY #90 tabs 04/08/24 08/29/24 Rx (Singulair) pantoprazole 40 mg tablet,delayed 40 mg PO QAM #90 tabs 04/08/24 08/29/24 Rx release sertraline 100 mg tablet 150 mg (1.5 x 100 mg) PO DAILY 04/08/24 08/29/24 Rx #135 tabs acetaminophen 650 mg 1,300 mg PO DAILY 05/06/24 08/29/24 History tablet,extended release (Arthritis Pain Relief (acetaminophen) ER) aspirin 81 mg chewable tablet 81 mg PO DAILY@0800 30 days #30 05/07/24 08/29/24 Rx (Children's Aspirin) tabs atorvastatin 40 mg tablet (Lipitor) 40 mg PO DAILY #90 tabs 05/08/24 08/29/24 Rx famotidine 40 mg tablet 40 mg PO DAILY #90 tabs 05/28/24 08/29/24 Rx lactobacillus combination no.4 3 3,000 mmu cells PO DAILY 08/29/24 08/29/24 History billion cell capsule (Probiotic) magnesium oxide 400 mg PO DAILY 08/29/24 08/29/24 History potassium 99 mg tablet 1 mg PO DAILY 08/29/24 08/29/24 History Allergies Allergy/AdvReac Type Severity Reaction Status Date / Time No Known Allergies Allergy Mild Verified 08/29/24 10:52 Exam Const: General: cooperative, healthy appearing, comfortable and no acute distress Orientation/consciousness: patient oriented x3 Resp: Effort & Inspection: normal respiratory effort Cardio: Rate: regular rate GI: Inspection: normal to inspection GI Palp: No abdominal tenderness and Yes Soft to palpation : Other: deferred to OR Skin: General skin exam: normal color Neuro: General: patient oriented x3 Extrem: General: normal to inspection Psych: Appearance: grossly normal Affect: normal affect Attitude: cooperative Assessment and Plan Assessment and plan (1) Postmenopausal bleeding: Code(s): N95.0 - Postmenopausal bleeding Status: Acute Plan - [employer] ASSEMBLER US ordered by PCP reviewed with patient; thin lining of 4mm but recent HRT use to rule out hyperplasia or malignancy - Recommend proceeding with endometrial sampling via Hysteroscopy with D&C - Risks and benefits discussed in detail
--- OUTSIDE RECORDS SUMMARY | 2024-09-08 01:35 | XMS_ITS | Clinical Summary ---
Author Organization [facility] Address [address] [place] [address] Care Team Providers Care Avian Keeper Name Role Phone Unavailable Primary Care Provider Unavailabl e Source Comments [facility],non-owned Affiliates and Associated Physician Practices is amultiple site organization consisting of ambulatory clinics and hospital sitesin [place], [place], [place] and [place]. This disclosure is being madepursuant to the Care Everywhere program and may not contain all information available regarding this patient. Last updated 17.[facility] Allergies No known active allergies Medications * Be aware that medications may not be up to date on this document. Alwaysverify current medications with the patient. meloxicam (MOBIC) 15 MG tablet Take 15 [...] days 6 tablet 03/11/2019 Active albuterol HFA (PROVENTIL;VENT YON;PROAIR) 108 (90 Base) MCG/ACT inhaler Inhale 2 puffs by mouth every 4 hours as needed for Wheezing 1 Inhaler 03/11/2019 Active fluticasone propionate (FLONASE) 50 MCG/ACT nasal spray [place] 2 sprays into each nostril once daily 16 g 03/11/2019 Active methylPREDNISol one (MEDROL DOSEPAK) 4 MG tablet Take by mouth as directed 1 Each 03/11/2019 Active Social History Tobacco Use Types Packs/Day Years Used Date Smoking Tobacco: Former Cigarettes Q uit: 1998 Smokeless Tobacco: Never Comments No Sex and Gender Information Value Date Recorded Sex Assigned at Not on file Legal Sex Female 6:05 PM 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 Gender Identity Not on file Sexual Orientation Not on file Last Filed Vital Signs Vital Sign Reading Time Taken Comments Blood Pressure 116/78 03/11/2019 9:10 AM 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 Pulse 102 03/11/2019 9:10 AM 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 Temperature 36.9 C (98.4 F) 03/11/2019 9:10 AM 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 Respiratory Rate 17 03/11/2019 9:10 AM 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 Oxygen Saturation 97% 03/11/2019 9:10 AM 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 Inhaled Oxygen Concentration - - Weight 86.6 kg (191 lb) 03/11/2019 9:10 AM 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 Height 167.6 cm (5' 6) 03/11/2019 9:10 AM 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 Body Mass Index 30.83 03/11/2019 9:10 AM 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 Plan of Treatment Health Maintenance Due Date [...] 11/16/2007 SCREENING FOR DIABETES 03/11/2019 COVID-19 VACCINE (1 - 2023-2 5 season) 2023 DEPRESSION SCREENING 02/20/2024 INFLUENZA VACCINE (#1) 2024 Respiratory Syncytial Virus (RSV) Vaccine Pt: or [...] on patient's age to complete this topic Insurance [facility] Address: [facility] [id number] [place] [address]
--- OUTSIDE RECORDS SUMMARY | 2024-09-08 01:35 | XMS_ITS | Clinical Summary ---
Author Organization [facility] Address [address] [phone] Care Team Providers Care Site Administrator Name Role Phone Jethro Deirdre CELIA Primary Care Provider [phone] Allergies No known active allergies Medications pantoprazole DR (PROTONIX) 40 mg EC tablet 8 Active sertraline (ZOLOFT) 100 mg tablet 8 Active albuterol HFA (PROVENTIL HFA,VENTOLIN HFA,PROAIR HFA) 90 mcg/actuation inhaler Inhale 2 puffs every 4 (four) hours as needed 0 Active famotidine (PEPCID) 40 mg tablet Take 1 tablet (40 mg total) by mouth daily 1 Active fluticasone propionate (FLONASE) 50 mcg/actuation nasal spray Administer 2 sprays into affected nostril(s) daily 0 Active montelukast (SINGULAIR) 10 mg tablet TAKE 1 TABLET BY MOUTH DAILY. GENERIC EQUIVALENT FOR SINGULAIR 1 Active clopidogreL (PLAVIX) 75 mg tablet 5 Active liothyronine (CYTOMEL) 5 mcg tablet Take 2 tablets (10 mcg total) by mouth daily 5 Active atorvastatin (LIPITOR) 40 mg tablet Active aspirin 81 mg enteric coated tablet Take 1 tablet (81 mg total) by mouth daily Active Active Problems Problem Noted Date Diagnosed Date Brain TIA 06/02/2024 Hx of TIA (transient ischemic attack) and stroke 06/02/2024 DAVIDSON (dyspnea on exertion) 06/02/2024 Family history of ischemic heart disease 025 Cobalamin deficiency 08/31/2021 Acute pain due to trauma 12/04/2020 GERD (gastroesophageal reflux disease) Mixed hyperlipidemia 12/04/2020 Major depressive disorder 12/04/2020 Closed fracture of distal end of left fibula Avulsion fracture of condyle of femur 12/03/2020 Closed fracture of part of tibia 12/02/2020 Cervical radiculopathy 08/17/2016 Carpal tunnel syndrome 08/17/2016 Encounters Date Type Department Care Team Description 07/04/2024 9:05 AM CDT - 07/04/2024 11:59 PM CDT Hospital Encounter [facility] [address] [place] [address] DAVIDSON (dyspnea on exertion); Family history of ischemic heart disease; Other forms of angina pectoris Discharge Disposition: Discharge to home or self care 07/04/2024 Results Follow-Up [facility] Cardiology [address] [facility] [address] [place] [phone] Lesvia Cantu MD M[facility] Mobile Cardiac Telemetry Event Monitor, CTA Heart and Coronary Arteries W Morphology when Performed 06/17/2024 Telephone [facility] Cardiology [address] [place] [phone] Lesvia Cantu MD 06/10/2024 Telephone [facility] Cardiology [address] [place] [phone] Lesvia Cantu MD from Last 3 Months Immunizations Immunization Administration Dates Next Due Influenza, [...] (Add ed by TW Conv) Anxiety Depression TIA (transient ischemic attack) Diastolic dysfunction Family History Medical History Relation Name Comments [...] on file 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 Gender Identity Not on file Sexual Orientation Not on file Occupation Industry Job Start Date Job End Date 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 Not on file Not on file Not on file Obstetrics History Last Filed Vital Signs Vital Sign Reading Time Taken Comments Blood Pressure 135/72 07/04/2024 9:35 AM CDT Pulse 65 07/04/2024 9:35 AM CDT Temperature 36.7 C (98 F) 12/05/2020 1:08 PM CDT Respiratory Rate 12 07/04/2024 9:35 AM CDT Oxygen Saturation 97% 06/02/2024 8:55 AM CDT Inhaled Oxygen Concentration - - Weight 87.3 kg (192 lb 8 oz) 06/02/2024 8:55 AM CDT Height 165.1 cm (5' 5) 06/02/2024 8:55 AM CDT Body Mass Index 32.03 06/02/2024 8:55 AM CDT Plan of Treatment Health Maintenance [...] 2023-2 5 season) 2023 01/19/2021, 08/06/2020, 07/16/2020 Colon Cancer Screening-Colonoscopy 02/05/2024 02/04/2014, 02/04/2014 Influenza Vaccine (#1) 2024 2, 11/07/2019, 11/12/2018, Additional history exists Colon Cancer Screening-CT Colonography Discontinued 02/04/2014, 02/04/2014 Colon Cancer Screening-DNA Stool Discontinued 02/05/20 14, 02/04/2014 Colon Cancer Screening-FIT Discontinued 02/04/2014, Colon Cancer Screening-Sigmoidoscopy Discontinued 02/04/2014, 02/04/2014 Medical Devices Implanted Type Area Chief Orthoptist Device Identifier Shelf Expiration Date Model / Serial / Lot Synthes .034.549s Expert 11mm 345mm Cannulated Proximal Bend Tibial Flute Nail - [id number] Implanted:Qty: 1 on 12/03/2020 by Phu Figueroa MD at [facility] Left: Tibia Synthes I 01/18/2029..549 S / / [id number] Synthes 04.005.520 5mm 4.3mm 30mm Lock Self Tap Blunt Tip 2 Lead Tibial T25 Full - [id number] Implanted:Qty: 2 on 12/03/2020 by Phu Figueroa MD at [facility] Left: Leg Synthes I 04.005.520 / / Synthes 04.005.534 5mm 4.3mm 44mm Lock Self Tap Blunt Tip 2 Lead Tibial T25 Full - [id number] Implanted:Qty: 2 on 12/03/2020 by Phu Figueroa MD at [facility] Left: Leg Synthes I 04.005.534 / / Synthes 04.005.522 5mm 4.3mm 32mm Lock Self Tap Blunt Tip 2 Lead Tibial T25 Full - [id number] Implanted:Qty: 1 on 12/03/2020 by Phu Figueroa MD at [facility] Left: Leg Synthes I 04.005.522 / / Synthes 475.925 2.5mm 440mm Elastic Nail Intramedullary Titanium Pediatric - [id number] Implanted:Qty: 1 on 12/03/2020 by Phu Figueroa MD at [facility] Left: Fibula Synthes I 475.925 / / Explanted Type Area Chief Orthoptist Device Identifier Shelf Expiration Date Model / Serial / Lot Synthes 04.005.536 5mm 4.3mm 46mm Lock Self Tap Blunt Tip 2 Lead Tibial T25 Full - [id number] Explanted:Qty: 1 on 12/03/2020 by Phu Figueroa MD at [facility] Left: Leg Synthes I 04.005.53 6 / / Procedures Procedure Name Priority Date/Time Associated Diagnosis Comments CT HEART MORPHOLOGY AND CORONARY ARTERIES W CONTRAST Schedule Routine, Read Routine (OP Routine) 07/04/2024 10:02 AM CDT DAVIDSON (dyspnea on exertion) Family history of ischemic heart disease Other forms of angina pectoris COLONOSCOPY IMAGES 02/04/2014 from Last 3 Months or Most Recently Relevant to Health Maintenance Results * CTA Heart and Coronary Arteries W Morphology when Performed (07/04/2024 10:02 AM CDT) Anatomical Region Laterality Modality Chest N/A Computed Tomogra phy 07/04/2024 11:2 1 AM CDT Impressions 07/04/2024 12:26 PM CDT 1. Nonobstructive coronary artery disease predominantly in the left anterior descending and right coronary arteries. 2. Coronary artery calcium score is 288. 3. 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 If clinically relevant, V/Q scintigraphy is recommended for further characterization. Dictated by: Allie Power M.D. The radiology attending physician has personally reviewed this study, and had reviewed and/or edited this written report and agrees with it. Electronically signed by: Tray Rodarte M.D. 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 Evaluate for coronary artery disease. TECHNIQUE: CT angiography of the coronary arteries was performed after the administration of 93 mL of Optiray 350. Images were also obtained precontrast for the purposes of calcium scoring. 0 mg of metoprolol was administered intravenously, and 2 puffs of sublingual nitroglycerin was administered prior to the examination. The patient's heart rate and blood pressure at the time of the examination were 62 beats per minute and 135/72 mmHg. Images were transferred to a 3D workstation for additional post-processing. FINDINGS: The coronary arteries are right system dominant. There is no anomalous coronary origin or course. Left coronary system: Left main: Short segment left main with no calcification. Left anterior descending: Calcified and noncalcified plaque in the proximal left anterior descending resulting in mild (less than 40%) stenosis. Left circumflex: No calcification. Left circumflex gives rise to left posterior lateral branch. Right coronary system: Calcified plaque in the proximal right coronary artery resulting in mild (less than 30%) stenosis. Scattered luminal irregularities throughout the mid right coronary artery resulting in minimal stenosis. Calcified plaque in the mid right coronary artery resulting in mild (less than 40%) stenosis. The calculated calcium score is 288. Other findings: Several pulmonary webs, predominately in the right pulmonary artery vasculature. 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 Evaluate for coronary artery disease. TECHNIQUE: CT angiography of the coronary arteries was performed after the administration of 93 mL of Optiray 350. Images were also obtained precontrast for the purposes of calcium scoring. 0 mg of metoprolol was administered intravenously, and 2 puffs of sublingual nitroglycerin was administered prior to the examination. The patient's heart rate and blood pressure at the time of the examination were 62 beats per minute and 135/72 mmHg. Images were transferred to a 3D workstation for additional post-processing. FINDINGS: The coronary arteries are right system dominant. There is no anomalous coronary origin or course. Left coronary system: Left main: Short segment left main with no calcification. Left anterior descending: Calcified and noncalcified plaque in the proximal left anterior descending resulting in mild (less than 40%) stenosis. Left circumflex: No calcification. Left circumflex gives rise to left posterior lateral branch. Right coronary system: Calcified plaque in the proximal right coronary artery resulting in mild (less than 30%) stenosis. Scattered luminal irregularities throughout the mid right coronary artery resulting in minimal stenosis. Calcified plaque in the mid right coronary artery resulting in mild (less than 40%) stenosis. The calculated calcium score is 288. Other findings: Several pulmonary webs, predominately in the right pulmonary artery vasculature. IMPRESSION: 1. Nonobstructive coronary artery disease predominantly in the left anterior descending and right coronary arteries. 2. Coronary artery calcium score is 288. 3. 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 If clinically relevant, V/Q scintigraphy is recommended for further characterization. Dictated by: Allie Power M.D. The radiology attending physician has personally reviewed this study, and had reviewed and/or edited this written report and agrees with it. Electronically signed by: Tray Rodarte M.D. Lesvia Cantu MD IMG CT PROCEDURES Fi nal Result * COLONOSCOPY IMAGES (02/04/2014) Anatomical Region Laterality Modality Other Narrative 02/04/2014 Ordered by an unspecified provider. us Historical Provider GI PROCEDURE ORDERABLES F inal Result from Last 3 Months or Most Recently Relevant to Health Maintenance Insurance AET[employer] MEDICARE GOLD [facility] CHOICE PLUS [facility] HMO/PPO Address: [address] [address] [place] [address] CHOICE PRF PPO [place] AETNA MEDICARE GOLD Advance Directives For more information, please contact: [phone] * Full Code (Latest Code Status on File) Date Activated Date Inactivated Comments 12/02/2020 8:42 PM 12/05/2020 8:36 PM Care Teams Site Administrator Relationship Specialty Start Date End Date Deirdre Morelos NP [facility] [place] [address] PCP - General Nurse Practitioner 06/02/24
--- OUTSIDE RECORDS SUMMARY | 2024-09-08 01:35 | XMS_ITS | Encounter Summary ---
Author Organization [facility] Healthcare Address [address] [place] [address] Care Team Providers Care Manager Reliability Name Role Phone Iris Ravi MD Primary Care Provider [phone] Deirdre Morelos NP Primary Care Provider [phone] Encounter Details Date Type Department Care Team (Late st Contact Info) Description 05/07/2024 Orders Only [facility] [place] [place] Health Information Management [address] [place] [phone] Scanning, Provider Social History Tobacco Use Types Packs/Day Years Used Date Smoking Tobacco: Former Smokeless Tobacco: Never Alcohol Use Standard Drinks/Week Comments Yes 0 [...] on file 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 Gender Identity Not on file Sexual Orientation Not on file Occupation Industry Job Start Date Job End Date 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 Not on file Not on file Not on file documented as of this encounter Plan of Treatment Not on file documented as of this encounter Procedures Procedure Name Priority Date/Time Associated Diagnosis Comments CARDIOLOGY DOCUMENT SCAN 05/07/2024 documented in this encounter Results * Cardiology Document Scan (05/07/2024) Anatomical Region Laterality Modality Other us Provider Scanning CV CARDIAC SERVICES PROCEDURES Final Result documented in this encounter Visit Diagnoses Not on filedocumented in this encounter Care Teams Manager Reliability Relationship Specialty Start Date End Date Iris Ravi MD PCP - General 08/02/11 06/01/24 Deirdre Morelos NP [facility] [address] PCP - General Nurse Practitioner 06/02/24 documented as of this encounter
--- OUTSIDE RECORDS SUMMARY | 2024-09-08 01:35 | XMS_ITS | Referral Summary ---
Author Organization [facility] Address [address] [place] [address] Care Team Providers Care Centrifugal Screen Tender Name Role Phone Deirdre Morelos CELIA Primary Care Provider [phone] Encounters Date Type Department Care Team Description 07/04/2024 Results Follow-Up [facility] Cardiology [address] [facility] [address] [place] [phone] Lesvia Cantu MD MCT Mobile Cardiac Telemetry Event Monitor, CTA Heart and Coronary Arteries W Morphology when Performed 07/04/2024 9:05 AM CDT - 07/04/2024 11:59 PM CDT Hospital Encounter [facility] [address] [place] [phone] DAVIDSON (dyspnea on exertion); Family history of ischemic heart disease; Other forms of angina pectoris Discharge Disposition: Discharge to home or self care 06/17/2024 Telephone [facility] Cardiology [address] [place] [phone] Lesvia Cantu MD 06/10/2024 Telephone [facility]iology [address] [place] [phone] Lesvia Cantu MD from Last 3 Months Allergies No known active allergies Medications pantoprazole (PROTONIX) 40 mg EC tablet 8 Active [...] on file Legal Sex Female 8:46 PM OB/GYN DOCTOR Gender Identity Not on file Sexual Orientation [...] 06/02/2024 8:55 AM CDT Plan of Treatment Not on file Medical Devices Implanted Type Area Immigration Coordinator Device Identifier Shelf Expiration Date Model / Serial / Lot Synthes .549s Expert 11mm 345mm Cannulated Proximal Bend Tibial Flute Nail - [id number] Implanted:Qty: 1 on 12/03/2020 by Phu Figueroa MD at [facility] Left: Tibia Synthes I 01/18/2029 04.034.549 S / / [id number] Synthes 04.005.520 5mm 4.3mm 30mm Lock Self Tap Blunt Tip 2 Lead Tibial T25 Full - [id number] Implanted:Qty: 2 on 12/03/2020 by Phu Figueroa MD at [facility] Left: Leg Synthes I 04.005.520 / / Synthes 04.005.534 5mm 4.3mm 44mm Lock Self Tap Blunt Tip 2 Lead Tibial T25 Full - [id number] Implanted:Qty: 2 on 12/03/2020 by Phu Figueroa MD at [facility] Left: Leg Synthes I 04.005.534 / / Synthes 04.005.522 5mm 4.3mm 32mm Lock Self Tap Blunt Tip 2 Lead Tibial T25 Full - [id number] Implanted:Qty: 1 on 12/03/2020 by Phu Figueroa MD at [facility] Left: Leg Synthes I 04.005.522 / / Synthes 475.925 2.5mm 440mm Elastic Nail Intramedullary Titanium Pediatric - [id number] Implanted:Qty: 1 on 12/03/2020 by Phu Figueroa MD at [facility] Left: Fibula Synthes I 475.925 / / Explanted Type Area Immigration Coordinator Device Identifier Shelf Expiration Date Model / Serial / Lot Synthes 04.005.536 5mm 4.3mm 46mm Lock Self Tap Blunt Tip 2 Lead Tibial T25 Full - [id number] Explanted:Qty: 1 on 12/03/2020 by Phu Figueroa MD at 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 Evaluate for coronary artery disease. TECHNIQUE: CT [...] dyspnea on exertion to her primary outpatient woodwind reeds cutter. Evaluate for coronary artery disease. TECHNIQUE: CT [...] by: Tray Rodarte M.D. Lesvia Cantu MD IM CT PROCEDURES Fi nal Result * COLONOSCOPY IMAGES (02/04/2014) Anatomical Region Laterality Modality Other Narrative 02/04/2014 Ordered by an unspecified provider. Historical Provider MD GI PROCEDURE ORDERABLES F inal Result from Last 3 Months or Most Recently Relevant to Health Maintenance Insurance [facility] MEDIC[facility] GOLD [facility] CHOICE PLUS CHOICE PRF PPO [place] AETNA MEDICARE GOLD Advance Directives For more information, please contact: [phone] * Full Code (Latest Code Status on File) Date Activated Date Inactivated Comments 12/02/2020 8:42 PM 12/05/2020 8:36 PM Care Teams Centrifugal Screen Tender Relationship Specialty Start Date End Date Deirdre Morelos NP [facility] [place] [address] PCP - General Nurse Practitioner 06/02/24
--- OUTSIDE RECORDS SUMMARY | 2024-09-08 01:35 | XMS_ITS | Data Portability ---
Author Organization [place] - [facility] [employer], Main Office Address [address] [place] [address] Care Team Providers Care Mobile Application Developer Name Role Phone NIESHA MESSINA Primary Care Provider NIESHA MESSINA Referring Provider [phone] Assessment Encounter Date Assessment Date Assessment LastModified [...] She voiced understanding of plan and agrees [email or web address] Not available 09/05/2022 11:10:12 2022 2022 Cscope- 2015- normal- repeat 2025 Mammogram-ordered DEXA- 10/2021- osteopenia DEANGELO Butcher Call office if worse, ER if life-threatening illness RTC 4 months She voiced understanding of plan and agrees [email or web address] Not available 2022 15:53:30 12/11/2022 12/11/2022 Impression: [...] more than half the time spent in [id number] care. Not available 12/11/2022 16:35:10 01/22/2023 01/22/2023 [...] in the right knee. She still has [id number] pain with patellofemoral grind and inhibition testing. [...] repeat 2025 Mammogram-02/2023 DEXA- 10/2021- osteopenia WWE- IMITATION [employer]CH[employer]- [place] Call office if worse, ER if life-threatening illness She plans transfer to PCP in [facility] She voiced understanding of plan and agrees [email or web address] Not available 03/07/2023 14:23:53 Plan of Treatment Reminders Order Date Submit Date Provider Last Modified By Organization Details Last Modified Time Details Appointments None recorded. Lab glycohemogl obin, total, blood 2022 023 [facility] (Lab), [address] [place], [address], 3 19:20:31 CMP, serum or plasma 2022 023 [facility] ([facility]), [address] [place], [address], 3 19:50:12 CBC w/ auto diff 2022 023 [facility] (Lab), [address] [place], [address], 3 18:43:58 lipid panel, serum 2022 023 [facility] (Lab), [address] [place], [address], 3 19:50:17 TSH, serum or plasma 2022 023 [facility] (Lab), [address] [place], [address], 20:07:26 vitamin D, 25-hydroxy, total, serum [address] (Lab), [address] [place], [address], 3 11:42:40 vitamin B12 + folate, serum or blood [address] (Lab), [address] [place], [address], 11:42:40 Referral orthopedic surgeon referral - angelica guido in right knee 2022 023 KAYLEEN Jero Ann MD, [address], [facility], [place], [address], 3 16:36:07 Procedures None recorded. Surgeries None recorded. Imaging XR, knee 2022 023 [facility], [address], [place], [address], 3 17:10:31 MAMMO, screening, bilateral 2022 023 [email or web address] [facility], 2022 Ayse Nguyen, [address], [address], 4 12:16:23 Medication Orders atorvastati n 40 mg tablet 2023 024 [facility], [address], [place], [place], [id number], 4 14:20:09 albuterol sulfate HFA 90 mcg/actuati on aerosol inhaler 2023 024 [facility] #84268, [address], [place], [place], [id number], 4 14:20:11 famotidine 40 mg tablet 2023 024 [facility] #96755, [address], [place], [place], [id number], 4 14:20:16 montelukast 10 mg tablet 2023 024 [facility] #00212, [address], [place], [place], [id number], 4 14:20:22 pantoprazol e 40 mg tablet,heather yed release 2023 024 [facility] #43059, [address], [place], [place], [id number], 4 14:20:21 sertraline 100 mg tablet 2023 024 [facility] #28082, [address], [place], [place], [id number], 4 14:20:21 meloxicam 15 mg tablet [address] [facility]85793, [address], [place], [place], [id number], 3 07:27:40 meloxicam 15 mg tablet [address] [facility] #86867, [address], [place], [place], [id number], 3 17:10:31 atorvastati n 20 mg tablet 2022 023 [email or web address] [facility] #73382, [address], [place], [place], [id number], 3 15:41:31 famotidine 40 mg tablet 2022 023 [facility] #20825, [address], [place], [place], [id number], 3 11:06:10 montelukast 10 mg tablet 2022 023 [facility] #71875, [address], [place], [place], [id number], 3 11:06:12 sertraline 100 mg tablet 2022 023 [facility] #02508, [address], [place], [place], [id number], 3 11:06:11 Patient TargetsNo targets recorded. Patient Instructions Encounter Date Encounter Id Patient Instructions Last Modified By Organization Details Last Modified Time 09/05/[id number] Due to the COVID-19 (Novel Coronavirus) pandemic, it is within this context (and with the understanding that this method of patient encounter is in the patient s best interest as well as the health and safety of other patients and the public) that telehealth is being provided for this patient encounter rather than a nwxm-sl-qrqm visit. This patient encounter is appropriate at this time. This patient has been advised of the potential risks and limitations of this mode of treatment (including, but not limited to, the absence of in-person examination) and has agreed to be treated in a remote fashion despite these risks. Any and all of the patient s/patient s family s questions on this issue have been answered, and I have made no promises or guarantees to the patient. The patient has also been advised to contact this office for worsening conditions or problems, and seek emergency medical treatment and/or call 911 if the patient deems either necessary. HPI and/or vitals, if listed, were provided by the patient. [email or web address] Not available 09/05/2022 11:06:24 Reason for Referral Orthopedic Surgeon Referral for Pain of right knee joint wants hay in right knee Referring Physician: Niesha Messina, Internal Medicine, Encounter Date: 2022 Results Created Date Observation Date Name Description Value Unit Range Abnormal Flag Note LastModifiedBy Organization Detail LastModifiedTime 11/16/1911/15/2022 CBC/C OMPLE TE BLD COUNT W/DIF F white blood cells 5.4 x10'3 /uL 4.2-10 .8 Not Available [facility] (Lab) [address] [place], [address], 2022 18:43:58 11/16/1911/15/2022 CBC/C OMPLE TE BLD COUNT W/DIF F red blood cells 3.84 x10'6 /uL 3.80-5 .20 Not Available [facility] (Lab) [address] [place], [address], 2022 18:43:58 11/16/19 23 2022 CBC/C OMPLE TE BLD COUNT W/DIF F hemoglobin 12.5 g/dL 12.0-1 5.6 Not Available [facility] (Lab) [address] [place], [address], 2022 18:43:58 11/16/1911/15/2022 CBC/C OMPLE TE BLD COUNT W/DIF F hematocrit 38.1 % 35.7-4 5.7 Not Available [facility] (Lab) [address] [place], [address], 2022 18:43:58 11/16/1911/15/2022 CBC/C OMPLE TE BLD COUNT W/DIF F mean red cell volume 99.2 fL 82.0-9 9.0 high Not Available [facility] (Lab) [address] [place], [address], 2022 18:43:58 11/16/19 23 2022 CBC/C OMPLE TE BLD COUNT W/DIF F mean red cell hemoglobin 32.6 pg 27.0-3 3.0 Not Available [facility] (Lab) [address] [place], [address], 2022 18:43:58 11/16/19 23 2022 CBC/C OMPLE TE BLD COUNT W/DIF F mean RBC HGB concentratio n 32.8 g/dL 31.0-3 6.0 Not Available [facility] (Lab) [address] [place], [address], 2022 18:43:58 11/16/19 23 2022 CBC/C OMPLE TE BLD COUNT W/DIF F red cell distribution width 12.2 % 11.8-1 5.5 Not Available [facility] (Lab) [address] [place], [address], 2022 18:43:58 11/16/19 23 2022 CBC/C OMPLE TE BLD COUNT W/DIF F platelets 287 x10'3 /uL 150-40 0 Not Available [facility] (Lab) [address] [place], [address], 2022 18:43:58 11/16/1911/15/2022 CBC/C OMPLE TE BLD COUNT W/DIF F mean platelet volume 10.2 fL 9.0-12 .4 Not Available [facility] (Lab) [address] [place], [address], 2022 18:43:58 11/16/19 23 2022 CBC/C OMPLE TE BLD COUNT W/DIF F neutrophils 58.8 % 39.0-7 2.0 Not Available [facility] (Lab) [address] [place], [address], 2022 18:43:58 11/16/1911/15/2022 CBC/C OMPLE TE BLD COUNT W/DIF F lymphocytes 32.8 % 16.0-4 7.0 Not Available [facility] (Lab) [address] [place], [address], 2022 18:43:58 11/16/1911/15/2022 CBC/C OMPLE TE BLD COUNT W/DIF F monocytes 6.9 % 5.0-12 .0 Not Available [facility] (Lab) [address] [place], [address], 2022 18:43:58 11/16/1911/15/2022 CBC/C OMPLE TE BLD COUNT W/DIF F eosinophils 0.6 % 1.0-7. 0 low Not Available [facility] (Lab) [address] [place], [address], 2022 18:43:58 11/16/1911/15/2022 CBC/C OMPLE TE BLD COUNT W/DIF F basophils 0.7 % 0.0-2. 0 Not Available [facility] (Lab) [address] [place], [address], 2022 18:43:58 11/16/1911/15/2022 CBC/C OMPLE TE BLD COUNT W/DIF F immature granulocytes 0.2 % 0.00-0 .50 Not Available [facility] (Lab) [address] [place], [address], 2022 18:43:58 11/16/1911/15/2022 CBC/C OMPLE TE BLD COUNT W/DIF F neutrophils, absolute count 3.16 x10'3 /uL 1.5-8. 0 Not Available [facility] (Lab) [address] [facility] [place], [address], 2022 18:43:58 11/16/1911/15/2022 CBC/C OMPLE TE BLD COUNT W/DIF F lymphocytes, absolute count 1.76 x10'3 /uL 1.07-3 .43 Not Available [facility] (Lab) [address] [place], [address], 2022 18:43:58 11/16/19 23 2022 CBC/C OMPLE TE BLD COUNT W/DIF F monocytes, absolute count 0.37 x10'3 /uL 0.29-0 .99 Not Available [facility] (Lab) [address] [place], [address], 2022 18:43:58 11/16/1911/15/2022 CBC/C OMPLE TE BLD COUNT W/DIF F eosinophils, absolute count 0.03 x10'3 /uL 0.02-0 .53 Not Available [facility] (Lab) [address] [place], [address], 2022 18:43:58 11/16/19 23 2022 CBC/C OMPLE TE BLD COUNT W/DIF F basophils, absolute count 0.04 x10'3 /uL 0.01-0 .08 Not Available [facility] (Lab) [address] [place], [address], 2022 18:43:58 11/16/1911/15/2022 CBC/C OMPLE TE BLD COUNT W/DIF F immature granulocytes ,absolute 0.01 x10'3 /uL 0.00-0 .05 Not Available [facility] (Lab) [address] [place], [address], 2022 18:43:58 11/16/1911/15/2022 CBC/C OMPLE TE BLD COUNT W/DIF F nucleated red blood cells 0.0 % -0 Not Available [facility] (Lab) [address] [place], [address], 2022 18:43:58 11/16/19 23 2022 CBC/C OMPLE TE BLD COUNT W/DIF F NRBC# 0.00 x10'3 /uL Not Available [facility] (Lab) [address] [place], [address], 2022 18:43:58 11/16/1911/15/2022 HEMOG LOBIN A1C HA1C 5.6 % 4.0-6. 0 Diabe sanjuanita Scree shaina Crite candy: <5.7% Consi stent with absen ce of diabe sanjuanita 5.7-6 .4% Consi stent with incre ased risk for diabe sanjuanita (pred iabet es) >OR=6 .5% Consi stent with diabe sanjuanita REFER ENCE: Diabe sanjuanita Care 2016, 39(Antunez ppl.1 ):s13 -s22 Not Available [facility] (Lab) [address] [place], [address], 2022 19:20:31 11/16/1911/15/2022 VITAM IN D 25-HY DROXY [id number] 70.1 NG/mL 30-100 Vitam in D Statu s: Defic ient: <20 ng/mL Insuf ficie nt: 20-29 ng/mL Suffi cient : 30-10 0 ng/mL Not Available [facility] (Lab) [address] [place], [address], 2022 19:48:16 11/16/1911/15/2022 COMPR EHENS HEATHER METAB OLIC PANEL sodium 136 mmol/ L 137-14 5 low Not Available [facility] (Lab) [address] [place], [address], 2022 19:50:12 11/16/19 23 2022 COMPR EHENS HEATHER METAB OLIC PANEL potassium 4.6 mmol/ L 3.5-5. 1 Not Available [facility] (Lab) [address] [place], [address], 2022 19:50:12 11/16/19 23 2022 COMPR EHENS HEATHER METAB OLIC PANEL chloride 100 mmol/ L 98-107 Not Available [facility] (Lab) [address] [place], [address], 2022 19:50:12 11/16/19 23 2022 COMPR EHENS HEATHER METAB OLIC PANEL carbon dioxide 27 mmol/ L 22-30 Not Available [facility] (Lab) [address] [place], [address], 2022 19:50:12 11/16/19 23 2022 COMPR EHENS HEATHER METAB OLIC PANEL anion gap 13.6 mmol/ L 14-22 low Not Available [facility] (Lab) [address] [place], [address], 2022 19:50:12 11/16/19 23 2022 COMPR EHENS HEATHER METAB OLIC PANEL glucose 99 mg/dL 70-99 Not Available [facility] (Lab) [address] [place], [address], 2022 19:50:12 11/16/19 23 2022 COMPR EHENS HEATHER METAB OLIC PANEL BUN 19 mg/dL 8-19 Not Available [facility] (Lab) [address] [place], [address], 2022 19:50:12 11/16/19 23 2022 COMPR EHENS HEATHER METAB OLIC PANEL creatinine 0.79 mg/dL 0.66-1 .25 Not Available [facility] (Lab) [address] [place], [address], 2022 19:50:12 11/16/1911/15/2022 COMPR EHENS HEATHER METAB OLIC PANEL GFR >60 Refer ence Range : [place] ge GFR Healt hy Adult : >60 [...] calcu lator is avail able on the [facility] websi te: [email or web address] :[email or web address] nunez/pr ofess ional s/kdo qi/gf r_cal culat or Not Available [facility] (Lab) [address] [place], [address], 2022 19:50:12 11/16/1911/15/2022 COMPR EHENS HEATHER METAB OLIC PANEL alkaline phosphatase 81 U/L 38-[address] [facility] (Lab) [address] [place], [address], 2022 19:50:12 11/16/1911/15/2022 COMPR EHENS HEATHER METAB OLIC PANEL alanine aminotransfe rase 27 U/L 0-35 Not Available [facility] (Lab) [address] [place], [address], 2022 19:50:12 11/16/19 23 2022 COMPR EHENS HEATHER METAB OLIC PANEL aspartate aminotransfe rase 33 U/L 15-37 Not Available [facility] (Lab) [address] [place], [address], 2022 19:50:12 11/16/1911/15/2022 COMPR EHENS HEATHER METAB OLIC PANEL bilirubin, total 0.60 mg/dL 0.20-1 .30 Not Available [facility] (Lab) [address] [place], [address], 2022 19:50:12 11/16/1911/15/2022 COMPR EHENS HEATHER METAB OLIC PANEL calcium 10.1 mg/dL 8.4-10 .2 Not Available [facility] (Lab) [address] [place], [address], 2022 19:50:12 11/16/1911/15/2022 COMPR EHENS HEATHER METAB OLIC PANEL total protein 7.5 g/dL 6.3-8. 2 Not Available [facility] (Lab) [address] [place], [address], 2022 19:50:12 11/16/1911/15/2022 COMPR EHENS HEATHER METAB OLIC PANEL albumin 4.9 g/dL 3.0-4. 4 high Not Available [facility] (Lab) [address] [place], [address], 2022 19:50:12 11/16/19 23 2022 COMPR EHENS HEATHER METAB OLIC PANEL globulin 2.6 g/dL 2.6-4. 2 Not Available [facility] (Lab) [address] [place], [address], 2022 19:50:12 11/16/1911/15/2022 COMPR EHENS HEATHER METAB OLIC PANEL A/G ratio 1.9 ratio 1.0-2. 0 Not Available [facility] (Lab) [address] [place], [address], 2022 19:50:12 11/16/1911/15/2022 LIPID PANEL cholesterol 233 mg/dL 140-19 9 high NIH XAVIER NSUS RECOM MENDA TION FOR OLY STERO L: ADULT CHILD LOW RISK: <200 <170 BORDE RLINE : <200- 239 ----- HIGH RISK: >240 >200 Not Available [facility] (Lab) [address] [place], [address], 2022 19:50:17 11/16/1911/15/2022 LIPID PANEL triglyceride s 212 mg/dL 0-150 high NIH XAVIER NSUS REPOR T RECOM MENDA TION FOR TRIGL YCERI BRIGID: ADULT CHILD LOW RISK: <150 ----- BODER LINE: 150-1 99 ----- HIGH RISK: >200 ----- Not Available [facility] (Lab) [address] [place], [address], 2022 19:50:17 11/16/1911/15/2022 LIPID PANEL HDL cholesterol 66 mg/dL 40- Not Available [facility] (Lab) [address] [place], [address], 2022 19:50:17 11/16/1911/15/2022 LIPID PANEL LDL cholesterol, calculated 125 mg/dL 0-130 NIH XAVIER NSUS REPOR T RECOM MENDA TIONS FOR LDL: ADULT CHILD LOW RISK <130 <110 (OPTI MAL LDL) <100 ----- ALYSON RLINE : 130-1 59 ----- HIGH RISK: >160 >130 A TRIGL YCERI DE RESUL T >400 INVAL IDATE S THE CALCU LATIO N FOR LDL FRACT IONAT ION - THE LDL RESUL T WILL NOT BE REPOR TRE. Not Available [facility] (Lab) [address] [place], [address], 2022 19:50:17 11/16/19 23 2022 TSH W/REF CELY FT4 TSH with reflex free T4 1.070 uIU/m L 0.465- 4.680 Not Available [facility] (Lab) [address] [place], [address], 2022 20:07:25 11/16/19 23 2022 VITAM IN B12 (WALLY SUNIL ) vb12 575 pg/mL 239-93 1 Not Available [facility] (Lab) [address] [place], [address], 2022 20:31:52 11/16/19 23 2022 FOLAT E, SERUM /PLAS MA folate >20.0 NG/mL 2.76-2 0.0 Not Available [facility] (Lab) [address] [place], [address], 2022 20:31:57 02/23/19 24 02/23/2023 COMPR EHENS HEATHER METAB OLIC PANEL sodium 143 mmol/ L 137-14 5 Not Available [facility] (Lab) [address] [place], [address], 02/23/2023 19:11:39 02/23/19 24 02/23/2023 COMPR EHENS HEATHER METAB OLIC PANEL potassium 4.3 mmol/ L 3.5-5. 1 Not Available [facility] (Lab) [address] [place], [address], 02/23/2023 19:11:39 02/23/19 24 02/23/2023 COMPR EHENS HEATHER METAB OLIC PANEL chloride 105 mmol/ L 98-107 Not Available [facility] (Lab) [address] [place], [address], 02/23/2023 19:11:39 02/23/19 24 02/23/2023 COMPR EHENS HEATHER METAB OLIC PANEL carbon dioxide 29 mmol/ L 22-30 Not Available [facility] (Lab) [address] [place], [address], 02/23/2023 19:11:39 02/23/19 24 02/23/2023 COMPR EHENS HEATHER METAB OLIC PANEL anion gap 13.3 mmol/ L 14-22 low Not Available [facility] (Lab) [address] [place], [address], 02/23/2023 19:11:39 02/23/19 24 02/23/2023 COMPR EHENS HEATHER METAB OLIC PANEL glucose 107 mg/dL 70-99 high Not Available [facility] (Lab) [address] [place], [address], 02/23/2023 19:11:39 02/23/19 24 02/23/2023 COMPR EHENS HEATHER METAB OLIC PANEL BUN 16 mg/dL 8-19 Not Available [facility] (Lab) [address] [place], [address], 02/23/2023 19:11:39 02/23/19 24 02/23/2023 COMPR EHENS HEATHER METAB OLIC PANEL creatinine 0.84 mg/dL 0.66-1 .25 Not Available [facility] (Lab) [address] [place], [address], 02/23/2023 19:11:39 02/23/19 24 02/23/2023 COMPR EHENS HEATHER METAB OLIC PANEL GFR >60 Refer ence Range : [place] ge GFR Healt hy Adult : >60 [...] calcu lator is avail able on the [facility] websi te: [email or web address] :[email or web address] rg/pr ofess ional s/kdo qi/gf r_cal culat or Not Available [facility] (Lab) [address] [place], [address], 02/23/2023 19:11:39 02/23/19 24 02/23/2023 COMPR EHENS HEATHER METAB OLIC PANEL alkaline phosphatase 63 U/L 38-[address] [facility] (Lab) [address] [place], [address], 02/23/2023 19:11:39 02/23/19 24 02/23/2023 COMPR EHENS HEATHER METAB OLIC PANEL alanine aminotransfe rase 22 U/L 0-35 Not Available [facility] (Lab) [address] [place], [address], 02/23/2023 19:11:39 02/23/19 24 02/23/2023 COMPR EHENS HEATHER METAB OLIC PANEL aspartate aminotransfe rase 31 U/L 15-37 Not Available [facility] (Lab) [address] [place], [address], 02/23/2023 19:11:39 02/23/19 24 02/23/2023 COMPR EHENS HEATHER METAB OLIC PANEL bilirubin, total 0.50 mg/dL 0.20-1 .30 Not Available [facility] (Lab) [address] [place], [address], 02/23/2023 19:11:39 02/23/19 24 02/23/2023 COMPR EHENS HEATHER METAB OLIC PANEL calcium 9.6 mg/dL 8.4-10 .2 Not Available [facility] (Lab) [address] [place], [address], 02/23/2023 19:11:39 02/23/19 24 02/23/2023 COMPR EHENS HEATHER METAB OLIC PANEL total protein 7.5 g/dL 6.3-8. 2 Not Available [facility] (Lab) [address] [place], [address], 02/23/2023 19:11:39 02/23/19 24 02/23/2023 COMPR EHENS HEATHER METAB OLIC PANEL albumin 4.7 g/dL 3.0-4. 4 high Not Available [facility] (Lab) [address] [place], [address], 02/23/2023 19:11:39 02/23/19 24 02/23/2023 COMPR EHENS HEATHER METAB OLIC PANEL globulin 2.8 g/dL 2.6-4. 2 Not Available [facility] (Lab) [address] [place], [address], 02/23/2023 19:11:39 02/23/19 24 02/23/2023 COMPR EHENS HEATHER METAB OLIC PANEL A/G ratio 1.7 ratio 1.0-2. 0 Not Available [facility] (Lab) [address] [place], [address], 02/23/2023 19:11:39 02/23/19 24 02/23/2023 LIPID PANEL cholesterol 190 mg/dL 140-19 9 NIH XAVIER NSUS RECOM MENDA TION FOR OLY STERO L: ADULT CHILD LOW RISK: <200 <170 BORDE RLINE : <200- 239 ----- HIGH RISK: >240 >200 Not Available [facility] (Lab) [address] [place], [address], 02/23/2023 19:11:45 02/23/19 24 02/23/2023 LIPID PANEL triglyceride s 265 mg/dL 0-150 high NIH XAVIER NSUS REPOR T RECOM MENDA TION FOR TRIGL YCERI BRIGID: ADULT CHILD LOW RISK: <150 ----- BODER LINE: 150-1 99 ----- HIGH RISK: >200 ----- Not Available [facility] (Lab) [address] [place], [address], 02/23/2023 19:11:45 02/23/19 24 02/23/2023 LIPID PANEL HDL cholesterol 70 mg/dL 40- Not Available [facility] (Lab) [address] [place], [address], 02/23/2023 19:11:45 02/23/19 24 02/23/2023 LIPID PANEL [...] WILL NOT BE REPOR TRE. Not Available [facility] (Lab) [address] [place], [address], 02/23/2023 19:11:45 04/13/19 24 04/13/2023 CBC/C OMPLE TE BLD COUNT W/DIF F white blood cells 7.9 x10'3 /uL 4.2-10 .8 Not Available [facility] (Lab) [address] [place], [address], 04/13/2023 13:59:55 04/13/19 24 04/13/2023 CBC/C OMPLE TE BLD COUNT W/DIF F red blood cells 3.66 x10'6 /uL 3.80-5 .20 low Not Available [facility] (Lab) [address] [place], [address], 04/13/2023 13:59:55 04/13/19 24 04/13/2023 CBC/C OMPLE TE BLD COUNT W/DIF F hemoglobin 11.9 g/dL 12.0-1 5.6 low Not Available [facility] (Lab) [address] [place], [address], 04/13/2023 13:59:55 04/13/19 24 04/13/2023 CBC/C OMPLE TE BLD COUNT W/DIF F hematocrit 35.5 % 35.7-4 5.7 low Not Available [facility] (Lab) [address] [place], [address], 04/13/2023 13:59:55 04/13/19 24 04/13/2023 CBC/C OMPLE TE BLD COUNT W/DIF F mean red cell volume 97.0 fL 82.0-9 9.0 Not Available [facility] (Lab) [address] [place], [address], 04/13/2023 13:59:55 04/13/19 24 04/13/2023 CBC/C OMPLE TE BLD COUNT W/DIF F mean red cell hemoglobin 32.5 pg 27.0-3 3.0 Not Available [facility] (Lab) [address] [facility] [place], [address], 04/13/2023 13:59:55 04/13/19 24 04/13/2023 CBC/C OMPLE TE BLD COUNT W/DIF F mean RBC HGB concentratio n 33.5 g/dL 31.0-3 6.0 Not Available [facility] (Lab) [address] [place], [address], 04/13/2023 13:59:55 04/13/19 24 04/13/2023 CBC/C OMPLE TE BLD COUNT W/DIF F red cell distribution width 12.3 % 11.8-1 5.5 Not Available [facility] (Lab) [address] [place], [address], 04/13/2023 13:59:55 04/13/19 24 04/13/2023 CBC/C OMPLE TE BLD COUNT W/DIF F platelets 284 x10'3 /uL 150-40 0 Not Available [facility] (Lab) [address] [place], [address], 04/13/2023 13:59:55 04/13/19 24 04/13/2023 CBC/C OMPLE TE BLD COUNT W/DIF F mean platelet volume 9.6 fL 9.0-12 .4 Not Available [facility] (Lab) [address] [place], [address], 04/13/2023 13:59:55 04/13/19 24 04/13/2023 CBC/C OMPLE TE BLD COUNT W/DIF F neutrophils 69.9 % 39.0-7 2.0 Not Available [facility] (Lab) [address] [place], [address], 04/13/2023 13:59:55 04/13/19 24 04/13/2023 CBC/C OMPLE TE BLD COUNT W/DIF F lymphocytes 20.9 % 16.0-4 7.0 Not Available [facility] (Lab) [address] [place], [address], 04/13/2023 13:59:55 04/13/19 24 04/13/2023 CBC/C OMPLE TE BLD COUNT W/DIF F monocytes 8.1 % 5.0-12 .0 Not Available [facility] (Lab) [address] [place], [address], 04/13/2023 13:59:55 04/13/19 24 04/13/2023 CBC/C OMPLE TE BLD COUNT W/DIF F eosinophils 0.0 % 1.0-7. 0 low Not Available [facility] (Lab) [address] [place], [address], 04/13/2023 13:59:55 04/13/19 24 04/13/2023 CBC/C OMPLE TE BLD COUNT W/DIF F basophils 0.5 % 0.0-2. 0 Not Available [facility] (Lab) [address] [place], [address], 04/13/2023 13:59:55 04/13/19 24 04/13/2023 CBC/C OMPLE TE BLD COUNT W/DIF F immature granulocytes 0.6 % 0.00-0 .50 high Not Available [facility] (Lab) [address] [place], [address], 04/13/2023 13:59:55 04/13/19 24 04/13/2023 CBC/C OMPLE TE BLD COUNT W/DIF F neutrophils, absolute count 5.51 x10'3 /uL 1.5-8. 0 Not Available [facility] (Lab) [address] [place], [address], 04/13/2023 13:59:55 04/13/19 24 04/13/2023 CBC/C OMPLE TE BLD COUNT W/DIF F lymphocytes, absolute count 1.65 x10'3 /uL 1.07-3 .43 Not Available [facility] (Lab) [address] [place], [address], 04/13/2023 13:59:55 04/13/19 24 04/13/2023 CBC/C OMPLE TE BLD COUNT W/DIF F monocytes, absolute count 0.64 x10'3 /uL 0.29-0 .99 Not Available [facility] (Lab) [address] [place], [address], 04/13/2023 13:59:55 04/13/19 24 04/13/2023 CBC/C OMPLE TE BLD COUNT W/DIF F eosinophils, absolute count 0.00 x10'3 /uL 0.02-0 .53 low Not Available [facility] (Lab) [address] [place], [address], 04/13/2023 13:59:55 04/13/19 24 04/13/2023 CBC/C OMPLE TE BLD COUNT W/DIF F basophils, absolute count 0.04 x10'3 /uL 0.01-0 .08 Not Available [facility] (Lab) [address] [place], [address], 04/13/2023 13:59:55 04/13/19 24 04/13/2023 CBC/C OMPLE TE BLD COUNT W/DIF F immature granulocytes ,absolute 0.05 x10'3 /uL 0.00-0 .05 Not Available [facility] (Lab) [address] [place], [address], 04/13/2023 13:59:55 04/13/19 24 04/13/2023 CBC/C OMPLE TE BLD COUNT W/DIF F nucleated red blood cells 0.0 % -0 Not Available [facility] (Lab) [address] [place], [address], 04/13/2023 13:59:55 04/13/19 24 04/13/2023 CBC/C OMPLE TE BLD COUNT W/DIF F NRBC# 0.00 x10'3 /uL Not Available [facility] (Lab) [address] [place], [address], 04/13/2023 13:59:55 04/13/19 24 04/13/2023 AST/S GOT aspartate aminotransfe rase 25 U/L 15-37 Not Available [facility] (Lab) [address] [place], [address], 04/13/2023 14:34:11 04/13/19 24 04/13/2023 BASIC METAB OLIC PANEL sodium 140 mmol/ L 137-14 5 Not Available [facility] (Lab) [address] [place], [address], 04/13/2023 14:34:16 04/13/19 24 04/13/2023 BASIC METAB OLIC PANEL potassium 3.5 mmol/ L 3.5-5. 1 Not Available [facility] (Lab) [address] [place], [address], 04/13/2023 14:34:16 04/13/19 24 04/13/2023 BASIC METAB OLIC PANEL chloride 102 mmol/ L 98-107 Not Available [facility] (Lab) [address] [place], [address], 04/13/2023 14:34:16 04/13/19 24 04/13/2023 BASIC METAB OLIC PANEL carbon dioxide 29 mmol/ L 22-30 Not Available [facility] (Lab) [address] [place], [address], 04/13/2023 14:34:16 04/13/19 24 04/13/2023 BASIC METAB OLIC PANEL anion gap 12.5 mmol/ L 14-22 low Not Available [facility] (Lab) [address] [place], [address], 04/13/2023 14:34:16 04/13/19 24 04/13/2023 BASIC METAB OLIC PANEL glucose 114 mg/dL 70-99 high Not Available [facility] (Lab) [address] [place], [address], 04/13/2023 14:34:16 04/13/19 24 04/13/2023 BASIC METAB OLIC PANEL BUN 25 mg/dL 8-19 high Not Available [facility] (Lab) [address] [place], [address], 04/13/2023 14:34:16 04/13/19 24 04/13/2023 BASIC METAB OLIC PANEL creatinine 0.86 mg/dL 0.66-1 .25 Not Available [facility] (Lab) [address] [place], [address], 04/13/2023 14:34:16 04/13/19 24 04/13/2023 BASIC METAB OLIC PANEL GFR >60 Refer ence Range : [place] ge GFR Healt hy Adult : >60 [...] or ethni c subgr oups, such as Hisoh nics. Outsi de the valid ated ashley [...] calcu lator is avail able on the [facility] websi te: https ://delmy bennett.cuba nunez/sb ofess ional s/kdo qi/gf r_cal culat or Not Available [facility] (Lab) [address] [place], [address], 04/13/2023 14:34:16 04/13/19 24 04/13/2023 BASIC METAB OLIC PANEL calcium 9.7 mg/dL 8.4-10 .2 Not Available [facility] (Lab) [address] [place], [address], 04/13/2023 14:34:16 12/12/19 XR, knee No observ ation record ed. [facility] [address], [place], [address], 12/11/2022 16:32:52 02/27/19 24 02/27/2023 MAMMO , scree shaina, bilat eral No observ ation record ed. [email or web address] [address], [place], [address], 02/28/2023 14:34:48 Result Notes None recorded. Problems Name Problem SNOMED Code Status Onset Date Resolution Date Notes Provider Name and Address Organization Details Recorded Time Hyperlipid emia 93651659 Active 2021 Not Available [employer] 4 19:23:38 Cobalamin deficiency 985557863 Active 2021 Not Available [employer] 4 19:23:38 Prediabete s 590287951 Active 2021 Not Available [employer] 4 19:23:38 Fatigue 22226008 Active 2022 Not Available [employer] 4 19:23:38 Allergic rhinitis 03186052 Active 2022 Not Available [employer] 4 19:23:38 Menopausal symptom 05571171 Active 2022 Not Available [facility] 4 19:23:38 Gastroesop hageal reflux disease without esophagiti s 602748056 Active 2022 Not Available [facility] 4 19:23:38 Mixed anxiety and depressive disorder 727578762 Active 2022 Not Available [facility] 4 19:23:38 Carotid artery stenosis 53783973 Active 2022 Not Available [facility] 4 19:23:38 Osteopenia 796735501 Active 2022 Not Available [facility] 4 19:23:38 Vitamin D deficiency 09204895 Active 2022 Not Available [facility] 4 19:23:38 Pain of right knee joint 6966297244748 00 Active 2022 Not Available [facility] 4 19:23:38 Problem Notes None recorded. Procedures Surgical History Date Name Laterality Status Provider Name and Address Organization Details Recorded Time Unlisted px femur/knee completed Not Available [facility] 04/20/2022 00:58:56 Appendectomy completed Not Available [facility] 04/20/2022 00:58:56 Imaging Results None recorded. Procedure Notes None recorded. Medical Equipment None [...] Not Available Vitals Date Recorded Body height Body mass index (BMI) Body weight Body temperature Heart rate Oxygen saturation Oxygen saturation in Arterial blood by Pulse oximetry Systolic And Diastolic Provider Name and Address Organization Details Last Updated DateTime 4 167.64 cm 31.3 kg/m2 17041.9 2 g 97.8 [degF] 86 /min 97 % 97 % 122/80 mm[Hg] Cinthya Wyatt MA [facility] [employer] [facility] 4 14:02:30 Date Recorded Body height Provider Name an d Address Organization Details Last Updated DateTime 09/05/2022 167.64 cm Cinthya Wyatt MA [facility] [employer] [facility] 09/05/2022 10:39:51 Date Recorded Body height Body mass index (BMI) Body weight Body temperature Heart rate Systolic And Diastolic Provider Name and Address Organization Details Last Updated DateTime 3 167.64 cm 29.2 kg/m2 37499.2 2 g 97.5 [degF] 76 /min 116/70 mm[Hg] Cinthya Wytat MA [employer] 14:11:19 Date Recorded Body height Body mass index (BMI) Body weight Provider Name and Address Organization Details Last Updated DateTime 12/11/2022 167.64 cm 29.7 kg/m2 01814.71 g Dominique Lacy CNA [place] [employer] [facility] [employer] 12/11/2022 15:47:32 Date Recorded Body height Provider Name an d Address Organization Details Last Updated DateTime 01/22/2023 167.64 cm Anneliese Baeza Ashley [place] [employer] 01/22/2023 14:24:04 Social History Question Answer Notes LastModified by Organization Details LastModified Time Tobacco Smoking Status Former Smoker RADHA Gatica, [employer] [facility] [employer] 03/07/2023 13:47:50 What Is Your Level Of Caffeine Consumption? Occasional [id number] Information not available 04/20/2022 In The 14 Days Before Symptom Onset, Have You Had Close Contact With A Laboratory-conf irmed COVID-19 While That Case Was Ill? No [email or web address] Information not available 03/07/2023 In The 14 Days Before Symptom Onset, Have You Had Close Contact With A Person Who Is Under Investigation For COVID-19 While That Person Was Ill? No [email or web address] Information not available 03/07/2023 What Type Of Diet Are You Following? REGULAR [id number] Information not available 04/20/2022 What Is The Highest Grade Or Level Of School You Have Completed Or The Highest Degree You Have Received? [id number] [email or web address] Information not available 03/07/2023 Have There Been Any Changes To Your Family Or Social Situation? Yes Sister Has Dementia [email or web address] Information not available 03/07/2023 What Is The Fluoride Status Of Your Home? Unknown [email or web address] Information not available 03/07/2023 When Did You Quit Smoking? 11-15yearssincelas janiya [email or web address] Information not available 03/07/2023 Do You Use Insect Repellent Routinely? No [email or web address] Information not available 03/07/2023 Where Do You Live? SingleLevelHouse Information not available 03/07/2023 What Was The Date Of Your Most Recent Tobacco Screening? 03/07/2023 [email or web address] Information not available 03/07/2023 Do You Have Any Pets? No [email or web address] Information not available 03/07/2023 What Is Your Relationship Status? [id number] Information not available 04/20/2022 Do You Use Your Seat Belt Or Car Seat Routinely? Yes [email or web address] Information not available 03/07/2023 Do You Have Smoke And Carbon Monoxide Detectors In Your Home? Yes [email or web address] Information not available 03/07/2023 Are You Passively Exposed To Smoke? No [email or web address] Information not available 03/07/2023 Are There Any Smokers In Your House? No [email or web address] Information not available 03/07/2023 Do You Use Sunscreen Routinely? Yes Information not available 03/07/2023 Have You Recently Traveled Abroad? No [email or web address] Information not available 03/07/2023 Do You Have Any Dietary Restrictions? No [email or web address] Information not available 03/07/2023 Sex: Unknown Functional Status Question Answer Note LastModified by Organizat ion Details LastModified Time Do you use any illicit or recreational drugs? No [email or web address] Information not available 03/07/2023 Do you or have you ever used any other forms of tobacco or nicotine? No Information not available 03/07/2023 What is your level of alcohol consumption? Occasional [email or web address] Information not available 12/11/2022 What is your exercise level? Occasional [id number] Information not available 04/20/2022 Mental Status Question Answer Note LastModified by Organization D etails LastModified Time Do you feel stressed (tense, restless, nervous, or anxious, or unable to sleep at night)? [id number] Information not available 03/07/2023 Family History Relationship Description Onset Age of this Age Resolved Age Notes LastModified by Organization Details LastModified Time Mother Malignant tumor of breast [email or web address] Not available 02/19 13:47:50 Mother Hypertensive disorder [id number] Not available 04/20/2022 00:59:00 Sister Malignant tumor of breast X2 [email or web address] Not available 02/19 13:47:50 Sister Heart disease [email or web address] Not available 2022 15:42:29 Sister Blood coagulation disorder Not available 02/19 13:47:50 Sister Dementia [email or web address] Not availa ble 03/07/2023 13:47:50 Sister Diabetes mellitus [id number].444 [id number] Not available 04/20/2022 00:59:00 Sister Hypertensive disorder X3 [email or web address].116 [id number] Not available 04/20/2022 00:59:00 Father Diabetes mellitus [email or web address].970 [id number] Not available 04/20/2022 00:59:00 Father Heart disease [email or web address].[id number] [id number] Not available 04/20/2022 00:59:00 Brother Heart disease MIGRATION.298 [id number] Not available 04/20/2022 00:59:00 Father Hypertensive disorder [...] mcg/0.3 mL dose 1 completed Not Available [facility] 03/09/2023 19:23:38 COVID-19, mRNA, LNP-S, PF, 30 mcg/0.3 mL dose 1 completed Not Available [facility] 03/09/2023 19:23:38 COVID-19, mRNA, LNP-S, PF, 30 mcg/0.3 mL dose 1 completed Not Available [facility] 03/09/2023 19:23:38 Influenza, split virus, quadrivalent, PF 2 completed Not Available [facility] 03/09/2023 19:23:38 Pneumococcal conjugate PCV20, polysaccharide [id number] conjugate, adjuvant, PF 3 completed ONOFRE Chen-Elva [address] [facility], [address], [address], [place] [facility] 2022 15:56:19 Past Encounters Encounter ID Performer Location Encounter Start Date Encounter Closed Date Diagnosis/Indication Diagnosis SNOMED-CT Code Diagnosis ICD10 Code Diagnosis Note [id number] Deisi roman MD [facility] Internal Med [place] [address] [place] [address] [place] [address] 08/10/2021 00:00:00 08/10/2021 15:43:37 [id number] Deisi roman MD [facility] Internal [place] [address] [place] [address] [place] [address] 08/31/2021 00:00:00 08/31/2021 17:08:01 [id number] Deisi roman MD [facility] Internal Med [place] [address] [place] [address] [place] [address] 09/28/2021 00:00:00 09/28/2021 13:51:04 [id number] Deisi roman MD [facility] Internal Med [place] [address] [place] [address] [place] [address] 10/05/2021 00:00:00 10/05/2021 13:00:40 [id number] Deisi roman MD [facility] Internal Med [place] [address] [place] [address] [place] [address] 11/02/2021 00:00:00 11/02/2021 12:59:32 [id number] Deisi roman MD [facility] Internal Med [place] [address] [place] [address] [place] [address] 11/30/2021 00:00:00 11/30/2021 12:58:52 [id number] Deisi roman MD [facility] Internal Med [place] [address] [place] [address] [place] [address] 02/22/2022 00:00:00 02/22/2022 17:33:35 [id number] Deisi roman MD [facility] Internal Med [facility] [address] [place] [address] 09/05/2022 10:35:44 09/05/2022 11:31:06 Cobalamin deficiency 364510025 E53.8 On monthly injections Hyperlipidemia 83399522 E78.5 On atorvastat in Fatigue 75991982 R53.83 also recommend sleep study which she declined Menopausal symptom 11401 002 E89.41 estradiol low/FSH elevated on labs c/w with menopausal femalenow following [facility] [place] Allergic rhinitis 639915 04 J30.9 On Singulair and Flonase Call office if any change in mood or behavior Renewal of prescription 988134622 Z76.0 Gastroesop hageal reflux disease without esophagitis 431250388 K21.9 on protonix and famotidine Mixed anxi ety and depressive disorder 053527680 F41.8 on sertraline , she is aware of side effects, risks, benefitsca ll office if any change in mood or behaviorsh e declines psychiatry referral Prediabetes 175127425 R7 3.03 Ozempic was not covered by insurance, but Sophiaro was, she is aware this is off label for prediabete spt is aware of side effects, risks, benefitspt denies any personal or family history of MEN II or MTC, denies and personal history of pancreatit ispt knows to call the office if any severe n/v or abdominal pain Wants to lose weight 170 219513 Z71.3 recommend healthy, well balanced mealsfocus on lean meats, fresh vegetables , fresh fruits, whole grainsredu ce fast/proce ssed foods or eating out to no more than 1-2 times per weekaim to get 30 min of exercise most days of the week- walking is a great choicealso recommend resistance training 2-3 times per week Carotid ar kamryn stenosis 22655419 I65.29 carotid doppler <50% stenosis bilaterall y Osteopenia 304529909 M85 .80 on OTC calcium/vi tamin dweight bearing exercise recommende d 2-3x per week [id number] Deisi roman MD [facility] Internal [facility] [place] [address] [facility] [place] [address] 2022 13:56:00 2022 14:38:36 Cobalamin deficiency 370990509 E53.8 On monthly injections Hyperlipidemia 51054998 E78.5 On atorvastat in Fatigue 55304466 R53.83 also recommend sleep study which she declined Menopausal symptom 78578 002 E89.41 estradiol low/FSH elevated on labs c/w with menopausal female now following [facility] [employer]- [place] Allergic rhinitis 002056 04 J30.9 On Singulair and FlonaseCal l office if any change in mood or behavior Gastroesop hageal reflux disease without esophagitis 122434759 K21.9 on protonix and famotidine Mixed anxi ety and depressive disorder 892571932 F41.8 on sertraline , she is aware of side effects, risks, benefits call office if any change in mood or behavior she declines psychiatry referral Prediabetes 071066471 R7 3.03 insurance will no longer cover Raj grande is working on lifestyle measures Wants to lose weight 170 160504 Z71.3 recommend healthy, well balanced mealsfocus on lean meats, fresh vegetables , fresh fruits, whole grainsredu ce fast/proce ssed foods or eating out to no more than 1-2 times per weekaim to get 30 min of exercise most days of the week- walking is a great choicealso recommend resistance training 2-3 times per week Carotid ar kamryn stenosis 40987967 I65.29 carotid doppler <50% stenosis bilaterall y Osteopenia 993382430 M85 .80 on OTC calcium/vi tamin d weight bearing exercise recommende d 2-3x per week Vitamin D deficiency 347 38614 E55.9 on OTC supplement Screening mammography 24 860886 Z12.31 Pain of ri ght knee joint 4404594386 25093 M25.561 get appt with ortho- she would like another injection Administra tion of pneumococcal vaccine 16875909 Z23 [id number] Jero Ann MD [facility] [place] [address] [place] [address] 12/11/2022 14:35:27 12/11/2022 16:37:37 Pain of right knee joint 2440160800 01123 M25.556 [id number] Jero Ann MD [facility] [place] [address] [place] [address] 01/22/2023 14:20:51 01/22/2023 15:28:26 Pain of right knee joint 4770907748 07896 M25.713 [id number] Deisi roman MD [facility] Internal Med [place] [address] [facility], [address] [place] [address] 03/07/2023 13:46:03 03/07/2023 15:33:49 Cobalamin deficiency 683512797 E53.8 On monthly b12 injections Hyperlipidemia 82431088 E78.5 On atorvastat in Fatigue 96480204 R53.83 previously recommend sleep study which she declined Menopausal symptom 00428 002 E89.41 estradiol low/FSH elevated on labs c/w with menopausal femalenow following [employer] [employer]- [place] Allergic rhinitis 949401 04 J30.9 On Singulair and FlonaseCal l office if any change in mood or behavior Gastroesop hageal reflux disease without esophagitis 132756374 K21.9 on protonix and famotidine Mixed anxi ety and depressive disorder 309499628 F41.8 on sertraline , she is aware of side effects, risks, benefitsca office if any change in mood or behaviorskarla grande declines psychiatry referral Prediabetes 361867022 R7 3.03 insurance will no longer cover Raj grande is working on lifestyle measures Wants to lose weight 170 012935 Z71.3 recommend healthy, well balanced mealsfocus on lean meats, fresh vegetables , fresh fruits, whole grainsredu ce fast/proce ssed foods or eating out to no more than 1-2 times per weekaim to get 30 min of exercise most days of the week- walking is a great choicealso recommend resistance training 2-3 times per week Carotid ar kamryn stenosis 69644853 I65.29 carotid doppler <50% stenosis bilaterall y Osteopenia 728736748 M85 .80 on OTC calcium/vi tamin dweight bearing exercise recommende d 2-3x per week Vitamin D deficiency 347 66325 E55.9 on OTC supplement Pain of ri ght knee joint 6834946914 73713 M25.561 following ortho- Dr. Ann Renewal of prescription 681437462 Z76.0 Health Concerns Section Related Observation LastModified by Organization Detai ls LastModified Time None Recorded Concern Status LastModified by Organization Details LastModified Time None Recorded Advance Directives Directive None Recorded Payers Insurance Date Sequence Insurance Name Policy Number Policy Zamora Covered Member ID Zamora Member ID Guarantor Name 03/05/2023 1 [employer] [place] (PPO) [id number] Hannah Widenhoefer [id number] Hannah Widenhoefer 03/05/2023 1 [place] [id number] Hannah Widenhoefer [id number] Hannah Widenhoefer 03/05/2023 2 [employer] (MEDICARE SUPPLEMENT) Hannah Widenhoefer [id number] Hannah Widenhoefer 03/05/2023 1 [place] Hannah J Widenhoefer [id number] Hannah Widenhoefer Notes Date Note Type Note Provider Name and Address Organization Details Recorded Time 09/05/2022 text/html This is a telehe alth visit conducted via phone call audio [...] issues with her allergies on the Singulair. Niesha Messina, LAMINATING MACHINE OFFBEARER-C [address] [facility], [address], [place], [address], [facility] [employer] 09/05/2022 11:12:16 2022 text/html Hannah presents to [...] She is due for labs and mammogram. Niesha Messina, ONOFRE-C [address] [facility], [facility] [address], [place], [address], [employer] 2022 15:57:11 12/11/2022 text/html patient is a [...] reflux. Jero Ann MD [address], [facility] [address], [place], [address], [employer] 12/11/2022 16:35:25 03/07/2023 text/html Hannah presents to [facility] for follow-up. We discussed her recent labs. [...] plans transfer to a new PCP in [place]. CANELO Chen [address], [facility] [address], [place], [address], [employer] 03/07/2023 14:24:22 OBGyn Episode No OBEpisode recorded.
[2024-09-08 06:05] VITALS: BP 150/66; PULSE 67; RESP 18; TEMP 36.4; O2SAT 96
[2024-09-08] MEDS: ACETAMINOPHEN 500 MG TABLET 1000 MG PO (06:27)
[2024-09-08] MEDS: LACTATED RINGERS 1,000 ML 30 ML IV CONT (06:30)
--- NOTE | 2024-09-08 07:10 | WPDHPUPDATE1 ---
History and Physical Update Update Date/Time: 09/08/24 07:10 History and Physical has been reviewed, including an updated exam of the patient. There are NO changes in the patient's condition. Risks, benefits, and alternatives have been discussed and questions answered. Patient agrees to proceed with Hysteroscopy with D&C.
--- NOTE | 2024-09-08 07:20 | P.PNAN_ITS ---
Anes - Initial Pre Proc Eval Procedure: Operation Date: 09/08/24 07:30 Proposed Procedures p Hysteroscopy Dilation and Curettage - Rhonda Butcher MD Date/Time: 09/08/24 07:20 Surgeon: Rhonda Butcher MD Pre Op Diagnosis: post menopausal bleeding Patient Data Age: 68 Gender: F Height: 1.68 m Weight: 86.7 kg Last Vital Signs Temp 36.4 C 09/08/24 06:05 Pulse 67 09/08/24 06:05 Resp 18 09/08/24 06:05 BP 150/66 H 09/08/24 06:05 Pulse Ox 96 09/08/24 06:05 O2 Del Method Room Air 09/08/24 06:05 Allergies Allergy/AdvReac Type Severity Reaction Status Date / Time No Known Allergies Allergy Mild Verified 09/08/24 06:36 Home Medications ?Medication ?Instructions ?Recorded ?Confirmed ?Type albuterol sulfate 90 mcg/actuation See Rx Instructions .Route 06/25/21 09/08/24 Rx aerosol inhaler .COMPLEX #8.5 grams fluticasone propionate 50 2 spray intranasal DAILY #16 grams 05/28/22 08/29/24 Rx mcg/actuation nasal spray,suspension montelukast 10 mg tablet 10 mg PO DAILY #90 tabs 04/08/24 09/08/24 Rx (Singulair) pantoprazole 40 mg tablet,delayed 40 mg PO QAM #90 tabs 04/08/24 09/08/24 Rx release sertraline 100 mg tablet 150 mg (1.5 x 100 mg) PO DAILY 04/08/24 09/08/24 Rx #135 tabs acetaminophen 650 mg 1,300 mg PO DAILY 05/06/24 09/08/24 History tablet,extended release (Arthritis Pain Relief (acetaminophen) ER) aspirin 81 mg chewable tablet 81 mg PO DAILY@0800 30 days #30 05/07/24 09/08/24 Rx (Children's Aspirin) tabs atorvastatin 40 mg tablet (Lipitor) 40 mg PO DAILY #90 tabs 05/08/24 09/08/24 Rx famotidine 40 mg tablet 40 mg PO DAILY #90 tabs 05/28/24 09/08/24 Rx lactobacillus combination no.4 3 3,000 mmu cells PO DAILY 08/29/24 09/08/24 History billion cell capsule (Probiotic) magnesium oxide 400 mg PO DAILY 08/29/24 09/08/24 History potassium 99 mg tablet 1 mg PO DAILY 08/29/24 09/08/24 History Patient hx anesthesia problems: none Family hx anesthesia problems: none Results Review: All pre-operative results and documents have been reviewed as part of the pre- operative evaluation. [facility] Past Medical History Medical History Brain TIA Normal cardiac stress test (~2015) Anxiety Depression HLD (hyperlipidemia) Prediabetes Surgical History Surgical History History of surgery on lower extremity H/O neck surgery H/O knee surgery (~1989) Family History Family History Mother Bladder cancer High cholesterol Heart disease Breast cancer Father Malignant neoplasm of prostate High cholesterol Heart disease Diabetes mellitus Family history of alcoholism Sibling Acute myocardial infarction Diabetes mellitus Heart disease Grandparent Cerebrovascular accident Other Family history of arthritis Family history of cardiovascular disease Family history of mental disorder Social History Social History Smoking packs per day: 0.5 Smoking cigarettes per day: 10.0 Years smoked: 30 Smoking pack-years: 15.00 Smoking status: Former smoker Tobacco type: cigarettes Second hand tobacco smoke exposure: Yes Smoking end date: 02/20/04 Alcohol intake: current Drinks per week: 2 Alcohol use details: socially Substance use: never Substance use type: does not use Do You Feel Safe in your Home?: Yes Lack of Transportation: No Lack of Food: Never True Current Housing: Decline to Answer Concerned About Future Housing: Decline to Answer Difficulty Paying Gas/Electric Bills: Decline to Answer Difficulty Paying for Meds: Decline to Answer Currently Unemployed: Decline to Answer Education: Decline to Answer Difficulty w/ Childcare or Family Care: Decline to Answer Living arrangements: with family Additional living arrangements comments: Occupation/Education: retired Gender identity (if verbalized by the patient): Female Spiritual care concerns: No Agree to blood products: No Anes - Eval Final PreProcedure Day of Procedure 09/08/24 07:20 Patient weight: overweight Heart: regular rate and rhythm Lungs: decreased breath sounds Airway: Mallampati scale class III Neurological: alert and oriented Last oral intake: >/= 8 hours ASA classification: III Emergent: no Anesthetic plan: proceed Anesthesia type and monitoring: general GIVS and standard monitoring Results Review: All pre-operative results and documents have been reviewed as part of the pre- operative evaluation. Informed Consent: The patient's anesthetic plan and its attendant risks and benefits were discussed with the patient/family/POA. Questions were solicited and answers provided to the satisfaction of the patient/family/POA.
--- NOTE | 2024-09-08 08:07 | S_PTH ---
PATIENT: Hannah Rico LOC: [facility] U#:[id number] AGE/SX: 68/F ROOM: RE09/08/[address]: Rhonda Butcher MD : 1955 BED: DIS: 09/08/2024 SPEC #: [id number] RECD: 09/08/24 10:16 STATUS: ROSY REUlises #: [id number] NICANOR: 09/08/24 08:[address]: Rhonda Butcher DEPT: [facility] Surgical RECD BY: Tameka Shepherd ENTERED: 09/08/24 10:16 SP TYPE: Surgical OTHR DR: Deirdre Morelos APRN Tissues: A - Endometrial Curettings Procedures: Hematoxylin and Eosin Stain Gross and Microscopic Level 4
[2024-09-08] MEDS: KETOROLAC 15 MG/ML VIAL (*BKC) IV PUSH (08:08)
--- NOTE | 2024-09-08 08:16 | P.OP_ITS ---
Procedure Note - Detailed Date of Procedure 09/08/24 Pre-op Diagnosis post menopausal bleeding Post-op Diagnosis Same Procedure Performed Hysteroscopy with D&C Surgeon Rhonda Butcher MD Anesthesia MAC Indications PMB after starting HRT pellets from hormone clinic Findings Uterus sounded to 7.5cm, normal appearing endometrium noted throughout the cavity, bilateral tubal ostia visualized. good hemostasis at end of case. Fluid deficit: 70cc. Description of Procedure Hannah was taken to the operating room where she was placed under sedation without complications. She was then prepped and draped in the usual sterile fashion in the dorsal lithotomy position with her legs in low Elias stirrups. A time-out was performed and no perioperative antibiotics were indicated. A bivalve speculum was placed within the vagina where the cervix was easily identified. The anterior lip of the cervix was grasped with a single-tooth tenaculum. The cervix was then serially dilated to allow for the hysteroscope. The hysteroscope was advanced into the uterine cavity with the above findings noted. A curettage was then performed until a good uterine cry was felt throughout the uterus. The hysteroscope was once again advanced into the uterine cavity where it was noted that the entire cavity had been sampled. Good hemostasis was noted. All instruments were removed from the vagina. Sponge, lap, instrument, and n eedle counts were correct at the end of the procedure. Patient was awoken from anesthesia and taken to recovery with plans of same-day discharge home. Estimated Blood Loss 5 IV Fluids 500 Pathology Yes (endometrial curettings) Complications No immediate complications Condition Stable Disposition Same day [facility] Billing Surgery - Charge Forward: Surgery Billing
[2024-09-08 08:20] VITALS: BP 143/61; PULSE 83; RESP 14; O2SAT 95
[2024-09-08 08:50] VITALS: BP 134/65; PULSE 71; RESP 20
[2024-09-08 09:20] VITALS: BP 141/66; PULSE 68; RESP 20
[2024-09-08 09:45] VITALS: BP 134/62; PULSE 71; RESP 20
== END 2024-09-08 09:52 | disposition home or self-care (01) ==
PROVIDERS: PCP Nurse Practitioner Adult Health; Visit Provider Obstetrics & Gynecology
PROC: 0U5B8ZZ Destruction of Endometrium, Via Natural or Artificial Opening Endoscopic (ICD-10-PCS; CPT 58563; principal; 2024-09-08 07:30)
DX: N95.0 Postmenopausal bleeding (principal); N85.8 Other specified noninflammatory disorders of uterus; E78.5 Hyperlipidemia, unspecified; R73.03 Prediabetes; Z86.73 Personal history of transient ischemic attack (TIA), and cerebral infarction without residual deficits; Z87.891 Personal history of nicotine dependence
CPT/HCPCS: 58558; 88305; A9270; J1885; J2003; J2250; J2405; J2704; J3010; J7030; J7120

== ENCOUNTER 2024-12-03 14:44 | Outpatient (CLI) | payer MEDICARE, SELFPAY ==
--- OUTSIDE RECORDS SUMMARY | 2024-12-03 16:58 | XMS_ITS | Encounter Summary ---
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
--- OUTSIDE RECORDS SUMMARY | 2024-12-03 16:58 | XMS_ITS | Clinical Summary ---
Author Organization [facility] Address [address] [address] Care Team Providers Care Title Clerk Name Role Phone Jethro Deirdre CELIA Primary Care Provider [phone] Allergies No known active allergies Medications pantoprazole [...] DAILY. GENERIC EQUIVALENT FOR SINGULAIR 1 Active atorvastatin (LIPITOR) 40 mg tablet Active [...] Encounters Date Type Department Care Team Description 10/10/2024 3:00 PM CDT Office Visit [facility] Cardiology [address] [place] [address] Ashley Jacobo NP Nonobstructive atherosclerosis of coronary artery (Primary Dx); Hx of TIA (transient ischemic attack) and stroke from Last 3 Months Immunizations Immunization Administration Dates Next Due Influenza, Quadrivalent, Spl it, Intramuscular 11/12/2018 Influenza, Quadrivalent, Spl it, Preservative Free, Intramuscular 11/07/2019,12/03/2017 Influenza, Trivalent, Preser vative Free, Intramuscular 11/19/2016,12/21/2015,12/16/2014 Influenza, Unspecified 12/06/2017,11/18/2016 ZOSTER Recombinant 03/11/2019 Surgical History Surgery Date Site/Laterality Comments KNEE SURGERY Knee Surgery - (Added by TW Conv) LASIK 1999 FRACTURE SURGERY 2020 APPENDECTOMY 1991 KNEE ARTHROSCOPY W/ LATERAL RELEASE 1992 Medical History Medical History Date Comments Personal history of other me ntal and behavioral disorders History of depression - (Add ed by TW Conv) Anxiety Depression TIA (transient ischemic attack) Diastolic dysfunction GERD (gastroesophageal reflux disease) 2001 Arthritis 2019 Family History Medical History Relation Name Comments Coronary artery disease Brother Josafat Waldo Fami ly history of coronary artery disease - (Added by TW Conv) Early Brother Josafat Waldo Heart attack Brother Josafat Waldo Cancer Father Smooth Waldo Coronary artery disease Father Smooth Waldo Fami ly history of coronary artery disease - (Added by TW Conv) Diabetes Father Smooth Waldo Hearing loss Father Smooth Waldo Heart attack Father Smooth Waldo Prostate cancer Father Smooth Waldo Family histo ry of malignant neoplasm of prostate - (Added by TW Conv) Cancer Mother Chelo Waldo Hypertension Mother Chelo Waldo Family history of hypertension - (Added by TW Conv) Alcohol abuse Other 1 Nephew Diabetes Other 1 Nephew Family history of diabetes mellitus - (Added by TW Conv) Alcohol abuse Other 2 Aunt, my mothers sister Cancer Other 2 Aunt, my mothers sister Fami ly history of cancer - (Added by TW Conv) Hypertension Other 2 Aunt, my mothers sister Alzheimer's disease Sister 1 Coco Wei Clotting disorder Sister 1 Coco Wei Developmental delay Sister 1 Coco Wei Diabetes Sister 1 Coco Wei Hearing loss Sister 1 Coco Wei Hypertension Sister 1 Coco Wei Family histor y of hypertension - (Added by Conv) Learning disabilities Sister 1 Coco Wei Alcohol abuse Sister 2 Delorse Loewer Coronary artery disease Sister 2 Keyanna Broussarder Fa jorge history of coronary artery disease - (Added by Conv) Heart attack Sister 2 Delorse Loewer Hypertension Sister 2 Delorse Loewer Anemia Sister 3 Gayle Schempriscilla Breast cancer Sister 3 Gayle Natasha Family histo ry of malignant neoplasm of breast - (Added by Conv) Cancer Sister 3 Gayle Natasha Hypertension Sister 3 Gayle Natasha Relation Name Status Comments Brother Josafat Waldo Father Smooth Waldo Mother Chelo Waldo Other 1 Nephew Other 2 Aunt, my mothers sister Sister 1 Coco Eriberto Sister 2 Milade Loewer Sister 3 Gayle Kaur Social History Tobacco Use Types Packs/Day Years [...] on file 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 Gender Identity Not on file Sexual Orientation Not on file 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 Industry Job Start Date Job End Date 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 Not on file Not on file Not on file Obstetrics History Last Filed Vital Signs Vital Sign Reading Time Taken Comments Blood Pressure 122/62 10/10/2024 2:44 PM CDT Pulse 70 10/10/2024 2:44 PM CDT Temperature 36.7 C (98 F) 12/05/2020 1:08 PM CDT Respiratory Rate 12 07/04/2024 9:35 AM CDT Oxygen Saturation 98% 10/10/2024 2:44 PM CDT Inhaled Oxygen Concentration - - Weight 89.8 kg (198 lb) 10/10/2024 2:44 PM CDT Height 165.1 cm (5' 5) 10/10/2024 2:44 PM CDT Body Mass Index 32.95 10/10/2024 2:44 PM CDT Plan of Treatment Health Maintenance Due Date Last Done Comments Breast Cancer Screening-Mammogram 1955 Depression Screening 1955 Hepatitis C Screening 1955 Osteoporosis Screening-Bone Density Scan 1955 DTaP/Tdap/Td Vaccine (1 - Tdap) 1968 Hepatitis B Screening 11/16/1975 Pneumococcal vaccine 65+ (1 of 1 - PCV) 11/16/2007 Zoster Vaccine (2 of 2) 05/06/2019 03/11/2019 Fall Risk Assessment 12/05/2021 12/05/2020 Well Visit 65+ 2022 Colon Cancer Screening-Colonoscopy 02/05/2024 02/04/2014, 02/04/2014 Covid-19 Vaccine (4 - 2024-2 6 season) 2024 01/19/2021, 08/06/2020, 07/16/2020 Influenza Vaccine (#1) 2024 4, 12/28/2021, 01/19/2021, Additional history exists Colon Cancer Screening-CT Colonography Discontinued 02/04/2014, 02/04/2014 Colon Cancer Screening-DNA Stool Discontinued 02/05/20 14, 02/04/2014 Colon Cancer Screening-FIT Discontinued 02/04/2014, Colon Cancer Screening-Sigmoidoscopy Discontinued 02/04/2014, 02/04/2014 Medical Devices Implanted Type Area Spool Maker Device Identifier Shelf Expiration Date Model / Serial / Lot Synthes 04.034.549s Expert 11mm 345mm Cannulated Proximal Bend Tibial Flute Nail - [id number] Implanted:Qty: 1 on 12/03/2020 by Phu Figueroa MD at [facility] Left: Tibia Synthes I 01/18/2029 04.034.549 S / / [id number] Synthes 04.005.520 5mm 4.3mm 30mm Lock Self Tap Blunt Tip 2 Lead Tibial T25 Full - [id number] Implanted:Qty: 2 on 12/03/2020 by Phu Figueroa MD at [facility] Left: Leg Synthes I 04.005.520 / / Synthes 04.005.534 5mm 4.3mm 44mm Lock Self Tap Blunt Tip 2 Lead Tibial T25 Full - [id number] Implanted:Qty: 2 on 12/03/2020 by Phu Figueroa MD at [facility] Left: Leg Synthes I 04.005.534 / / Synthes 04.005.522 5mm 4.3mm 32mm Lock Self Tap Blunt Tip 2 Lead Tibial T25 Full - [id number] Implanted:Qty: 1 on 12/03/2020 by Phu Figueroa MD at [facility] Left: Leg Synthes I 04.005.522 / / Synthes 475.925 2.5mm 440mm Elastic Nail Intramedullary Titanium Pediatric - [id number] Implanted:Qty: 1 on 12/03/2020 by Phu Figueroa MD at [facility] Left: Fibula Synthes I 475.925 / / Explanted Type Area Spool Maker Device Identifier Shelf Expiration Date Model / Serial / Lot Synthes 04.005.536 5mm 4.3mm 46mm Lock Self Tap Blunt Tip 2 Lead Tibial T25 Full - [id number] Explanted:Qty: 1 on 12/03/2020 by Phu Figueroa MD at [facility] Left: Leg Synthes I 04.005.53 6 / [...] Most Recently Relevant to Health Maintenance Insurance [facility] MEDICARE GOLD [facility] CHOICE [facility]US [facility] HMO/PPO Address: [address] [address] [place] [address] CHOICE [facility] PPO [place] AETNA MEDICARE GOLD Advance Directives For more information, please contact: [phone] * Full Code (Latest Code Status on File) Date Activated Date Inactivated Comments 12/02/2020 8:42 PM 12/05/2020 8:36 PM Care Teams Title Clerk Relationship Specialty Start Date End Date Deirdre Morelos NP [address] [place] [address] [place] [address] PCP - General Nurse Practitioner 06/02/24
--- OUTSIDE RECORDS SUMMARY | 2024-12-03 16:58 | XMS_ITS | Clinical Summary ---
Author Organization [facility] Address [address] [place] [address] Care Team Providers Care Recreation Attendant Supervisor Name Role Phone Unavailable Primary Care Provider Unavailabl e Source Comments [facility],non-owned Affiliates and Associated Physician Practices is amultiple site organization consisting of ambulatory clinics and hospital sitesin [place], [place], [place] and [place]. This disclosure is being madepursuant to the Care Everywhere program and may not contain all information available regarding this patient. 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 Gender Identity Not on file Sexual Orientation Not on file Last Filed Vital Signs Vital Sign Reading Time Taken Comments Blood Pressure 116/78 03/11/2019 9:10 AM TELECOM ANALYST Pulse 102 03/11/2019 9:10 AM TELECOM ANALYST Temperature 36.9 C (98.4 F) 03/11/2019 9:10 AM TELECOM ANALYST Respiratory Rate 17 03/11/2019 9:10 AM TELECOM ANALYST Oxygen Saturation 97% 03/11/2019 9:10 AM TELECOM ANALYST Inhaled Oxygen Concentration - - Weight 86.6 kg (191 lb) 03/11/2019 9:10 AM TELECOM ANALYST Height 167.6 cm (5' 6) 03/11/2019 9:10 AM TELECOM ANALYST Body Mass Index 30.83 03/11/2019 9:10 AM TELECOM ANALYST Plan of Treatment Health Maintenance Due Date [...] of 2) 11/16/2007 SCREENING FOR DIABETES 03/11/2019 DEPRESSION SCREENING 02/20/2024 MEDICARE AWV CALENDAR YEAR 2024 COVID-19 VACCINE (1 - 2023-2 5 season) 2024 INFLUENZA VACCINE (#1) 2024 Respiratory Syncytial Virus [...] patient's age to complete this topic Insurance [facility] Address: [address] [place] [address] AETNA MEDICARE ADV SELF PAY NO INSURANCE Member Subscriber Plan / Payer (Ef fective for All Dates) Name:Trisha Hannah Member ID:Not on file Relation to Subscriber:Not on file Name:TRISHAHANNAH Subscriber ID:Not on file (Home) Address: [address] [place] [address] [place] [address] Payer ID:Not on file Group ID:Not on file Type:Self Pay Address: [place], [place]
[2024-12-03 18:47] LABS: Alanine Aminotransferase 27 U/L (6-35); Albumin Level 4.8 g/dL (3.5-5.1); Alkaline Phosphatase 72 U/L (38-126); Anion Gap 11 mmol/L (4-12); Aspartate Amino Transferase 54 U/L (14-36); Bilirubin,Total 0.6 mg/dL (0.2-1.3); Blood Urea Nitrogen 21 mg/dL (7-17); Calcium 9.5 mg/dL (8.4-10.2); Carbon Dioxide 25 mmol/L (22-30); Chloride 102 mmol/L (98-107); Estimated Glomerular Filt Rate > 60; Glucose 107 mg/dL (65-110); Potassium 4.2 mmol/L (3.4-5.0); Sodium 138 mmol/L (137-145); Total Protein 8.1 g/dL (6.3-8.2)
[2024-12-03 18:49] LABS: Cholesterol 217 mg/dL (0-200); HDL Direct 62 mg/dL; Triglycerides 332 mg/dL (<150)
[2024-12-03 19:25] LABS: Hemoglobin A1C 5.6 % (<5.7)
[2024-12-03 19:46] LABS: Vitamin B12 411.0 pg/mL (239-931)
== END 2024-12-03 14:45 | disposition home or self-care (01) ==
PROVIDERS: PCP Nurse Practitioner Adult Health; Visit Provider Nurse Practitioner Adult Health
DX: E78.5 Hyperlipidemia, unspecified (principal); R73.03 Prediabetes; Z51.81 Encounter for therapeutic drug level monitoring
CPT/HCPCS: 36415; 80053; 80061; 82607; 83036

== ENCOUNTER 2024-12-30 16:55 | Emergency (ER) | payer MEDICARE, SELFPAY ==
--- OUTSIDE RECORDS SUMMARY | 2024-12-30 16:56 | XMS_ITS | Clinical Summary ---
Author Organization [facility] Address [address] [place] [address] Care Team Providers Care Transit Mixer Operator Name Role Phone Unavailable Primary Care Provider Unavailabl e Source Comments [facility],non-owned Affiliates and Associated Physician Practices is amultiple site organization consisting of ambulatory clinics and hospital sitesin [place], [place], [place] and [place]. This disclosure is being madepursuant to the Care Everywhere program and may not contain all information available regarding this patient. 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 Gender Identity Not on file Sexual Orientation Not on file Last Filed Vital Signs Vital Sign Reading Time Taken Comments Blood Pressure 116/78 03/11/2019 9:10 AM DIGITAL PHOTO PRINTER Pulse 102 03/11/2019 9:10 AM DIGITAL PHOTO PRINTER Temperature 36.9 C (98.4 F) 03/11/2019 9:10 AM DIGITAL PHOTO PRINTER Respiratory Rate 17 03/11/2019 9:10 AM DIGITAL PHOTO PRINTER Oxygen Saturation 97% 03/11/2019 9:10 AM DIGITAL PHOTO PRINTER Inhaled Oxygen Concentration - - Weight 86.6 kg (191 lb) 03/11/2019 9:10 AM DIGITAL PHOTO PRINTER Height 167.6 cm (5' 6) 03/11/2019 9:10 AM DIGITAL PHOTO PRINTER Body Mass Index 30.83 03/11/2019 9:10 AM DIGITAL PHOTO PRINTER Plan of Treatment Health Maintenance Due Date [...] age to complete this topic Insurance [facility] AETNA MEDICARE ADV SELF PAY NO INSURANCE Member Subscriber Plan / Payer (Ef fective for All Dates) Name:Trisha Hannah Member ID:Not on file Relation to Subscriber:Not on file Name:TRISHAHANNAH Subscriber ID:Not on file (Home) Address: [address] [place] [address] [place] [address] Payer ID:Not on file Group ID:Not on file Type:Self Pay Address: [place], [place]
--- OUTSIDE RECORDS SUMMARY | 2024-12-30 16:56 | XMS_ITS | Clinical Summary ---
Author Organization [facility] Address [address] [address] Care Team Providers Care Software Security Consultant Name Role Phone Jethro Deirdre CELIA Primary Care Provider [phone] Allergies No known active allergies Medications pantoprazole [...] Description 10/10/2024 3:00 PM CDT Office Visit [facility] Cardiology [address] [place] [address] Ashley Jacobo NP Nonobstructive atherosclerosis of coronary [...] Name Comments Coronary artery disease Brother Josafat Cotton Fami ly history of coronary artery disease - (Added by TW Conv) Early Brother Josafat Cotton Heart attack Brother Josafat Cotton Cancer Father Smooth Cotton Coronary artery disease Father Smooth Cotton Fami ly history of coronary artery disease - (Added by TW Conv) Diabetes Father Smooth Cotton Hearing loss Father Smooth Cotton Heart attack Father Smooth Cotton Prostate cancer Father Smooth Cotton Family histo ry of malignant neoplasm of prostate - (Added by TW Conv) Cancer Mother Chelo Cotton Hypertension Mother Chelo Cotton Family history of hypertension - (Added by [...] histor y of hypertension - (Added by TW Conv) Learning disabilities Sister 1 Coco Wei [...] Natasha Relation Name Status Comments Brother Josafat Cotton Father Smooth Cotton Mother Chelo Cotton Other 1 Nephew Other 2 Aunt, my [...] on file 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 Left: Tibia Synthes I 01/18/2029 04.034.549 S / / [id number] Synthes 04.005.520 5mm 4.3mm 30mm Lock Self Tap Blunt Tip 2 Lead Tibial T25 Full - [id number] Implanted:Qty: 2 on 12/03/2020 by Phu Figueroa MD at [facility] Left: Leg Synthes I 04.005.520 / / Synthes 04.005.534 5mm 4.3mm 44mm Lock Self Tap Blunt Tip 2 Lead Tibial T25 Full - [id number] Implanted:Qty: 2 on 12/03/2020 by Phu Figueroa MD at [facility] Left: Leg Synthes I 04.005.534 / / Synthes 04.005.522 5mm 4.3mm 32mm Lock Self Tap Blunt Tip 2 Lead Tibial T25 Full - [id number] Implanted:Qty: 1 on 12/03/2020 by Phu Figueroa MD at [facility] Left: Leg Synthes I 04.005.522 / / Synthes 475.925 2.5mm 440mm Elastic Nail Intramedullary Titanium Pediatric - [id number] Implanted:Qty: 1 on 12/03/2020 by Phu Figueroa MD at [facility] Left: Fibula Synthes I 475.925 / / Explanted Type Area Note Taker Device Identifier Shelf Expiration Date Model / Serial / Lot Synthes 04.005.536 5mm 4.3mm 46mm Lock Self Tap Blunt Tip 2 Lead Tibial T25 Full - [id number] Explanted:Qty: 1 on 12/03/2020 by Phu Figueroa [...] Most Recently Relevant to Health Maintenance Insurance [facility] CHOICE [facility] H[facility]/PPO Address: [address] [address] [place] [address] CHOICE [place] PPO [place] AETNA MEDICARE GOLD Advance Directives For more information, please contact: [phone] * Full Code (Latest Code Status on File) Date Activated Date Inactivated Comments 12/02/2020 8:42 PM 12/05/2020 8:36 PM Care Teams Software Security Consultant Relationship Specialty Start Date End Date Deirdre Morelos NP [address] [place] [address] [place] [address] PCP - General Nurse Practitioner 06/02/24
--- OUTSIDE RECORDS SUMMARY | 2024-12-30 16:56 | XMS_ITS | Encounter Summary ---
Author Organization [facility] Healthcare Address [address] [place] [address] Care Team Providers Care Contact Acid Plant Operator Name Role Phone Iris Ravi MD Primary Care Provider [phone] Deirdre Morelos NP Primary Care Provider [phone] Encounter Details Date Type Department Care Team (Late st Contact Info) Description 05/07/2024 Orders Only [facility] Health Information Management [address] [place] [id number] Scanning, Provider Social History Tobacco Use Types [...] on file Legal Sex Female 8:46 PM [employer] Gender Identity Not on file Sexual Orientation [...] on filedocumented in this encounter Care Teams Contact Acid Plant Operator Relationship Specialty Start Date End Date Iris Ravi MD PCP - General 08/02/11 06/01/24 Deirdre Morelos NP [facility] [place] [address] PCP - General Nurse Practitioner 06/02/24 documented as of this encounter
[2024-12-30 17:00] VITALS: BP 112/59; PULSE 71; RESP 14; TEMP 36.6; O2SAT 98
[2024-12-30 17:22] LABS: EDCOVIDSCREEN Negative (Negative); EDINFLUASCREEN Negative (Negative); EDINFLUBSCREEN Negative (Negative)
--- NOTE | 2024-12-30 17:36 | ED_ITS ---
HPI - URI/Sore Throat General Chief Complaint: Upper Respiratory Infection Stated Complaint: Covid Test Time Seen by Provider: 12/30/24 17:10 Source: patient and RN notes reviewed Mode of arrival: ambulatory Limitations: no limitations History of Present Illness HPI Narrative: 69-year-old female presents to the [facility] complaining of cough, congestion, runny nose for approximately 4 days. Patient denies any body aches, chills, fevers, nausea, vomiting, diarrhea, chest pain, difficulty breathing, chest congestion, or any other symptoms. Patient has been using her inhaler as needed along with her Flonase nasal spray to help with symptoms. Patient denies any significant past medical history. Patient called her doctor's office and sore to go get a COVID and flu test as she was concerned she might have bronchitis. Related Data Home Medications ?Medication ?Instructions ?Recorded ?Confirmed ?Last Taken ?Type acetaminophen 650 mg 1,300 mg PO DAILY 05/06/24 1 09/07/24 History tablet,extended release (Arthritis Pain Relief (acetaminophen) ER) lactobacillus combination no.4 3 3,000 mmu cells PO DA MARIAN 08/29/24 12/03/24 09/07/24 History billion cell capsule (Probiotic) magnesium oxide 400 mg PO DAILY 08/29/2409/05/24 History potassium 99 mg tablet 1 mg PO DAILY 08/29/2412/0309/05/24 History Allergies Allergy/AdvReac Type Severity Reaction Status Date / Time No Known Allergies Allergy Mild Verified 12/30/24 17:10 Review of Systems Review of Systems: CONSTITUTIONAL: Denies fever, chills, body aches, or sweats. EYES: Denies visual changes, redness, or discharge. ENT: Positive for rhinorrhea, congestion. Negative for sore throat, or otalgia. CARDIOVASCULAR: Denies chest pain, palpitations, or edema. RESPIRATORY: Positive for cough. Negative for dyspnea or wheezing. GASTROINTESTINAL: Denies abdominal pain, nausea, vomiting, or diarrhea. GENITOURINARY: Denies dysuria or hematuria. SKIN: Denies rash or itching. MUSCULOSKELETAL: Denies back pain, joint pain, or myalgia. NEUROLOGIC: Denies headache, numbness, or weakness. PSYCHIATRIC: Denies anxiety or depression. All other systems reviewed are negative, except as documented in HPI. [facility] Past Medical History Medical History Brain TIA Normal cardiac stress test (~2015) Anxiety Depression HLD (hyperlipidemia) Prediabetes Surgical History Surgical History History of hysteroscopy History of surgery on lower extremity H/O neck surgery H/O knee surgery (~1989) Family History Family History Mother Bladder cancer High cholesterol Heart disease Breast cancer Father Malignant neoplasm of prostate High cholesterol Heart disease Diabetes mellitus Family history of alcoholism Sibling Acute myocardial infarction Diabetes mellitus Heart disease Grandparent Cerebrovascular accident Other Family history of arthritis Family history of cardiovascular disease Family history of mental disorder Social History Social History Smoking packs per day: 0.5 Smoking cigarettes per day: 10.0 Years smoked: 30 Smoking pack-years: 15.00 Tobacco type: cigarettes Second hand tobacco smoke exposure: Yes Smoking end date: 02/20/04 Alcohol intake: current Drinks per week: 2 Alcohol use details: socially Substance use: never Substance use type: does not use Do You Feel Safe in your Home?: Yes Lack of Transportation: No Lack of Food: Never True Current Housing: Decline to Answer Concerned About Future Housing: Decline to Answer Difficulty Paying Gas/Electric Bills: Decline to Answer Difficulty Paying for Meds: Decline to Answer Currently Unemployed: Decline to Answer Education: Decline to Answer Difficulty w/ Childcare or Family Care: Decline to Answer Living arrangements: with family Additional living arrangements comments: Occupation/Education: retired Gender identity (if verbalized by the patient): Female Spiritual care concerns: No Agree to blood products: No Comments At the time of my signature, I reviewed and agree with the nursing past medical, surgical, social, and family history. There is no relevant family history pertinent to the patient complaint. Exam Narrative: GENERAL: This is a well-nourished, well-developed adult, in no apparent distress. They are non ill-appearing, nontoxic appearing. HEAD: normocephalic, atraumatic. EYES: Sclera clear/white. Vision is grossly intact. Conjunctiva normal bilaterally. Extraocular movements intact. EARS: External ears normal, auditory canals clear and without drainage, TMs without erythema or perforation. Hearing grossly intact. NOSE: External nose normal with no obvious nasal discharge, nasal turbinates erythematous, no rhinorrhea. THROAT: Mucous membranes moist, posterior pharynx edematous without exudate or erythema.. Uvula is midline. Postnasal drip present. NECK: Neck supple, non-tender without lymphadenopathy, masses or thyromegaly. CARDIOVASCULAR: Regular rate and rhythm without murmurs, gallops, or rubs. RESPIRATORY: Clear to auscultation. Breath sounds equal bilaterally. No wheezes, rales, or rhonchi. SKIN: warm, Dry, intact with no suspicious lesions or rash, good texture and turgor. NEURO: awake, alert, and oriented to person, place and time. There were no obvious focal neurologic abnormalities. EXTREMITIES: No joint tenderness, effusion, or edema noted. BACK: Nontender without deformity. Course Course Emergency Course: Portions of this record may have been created with voice recognition software Level of Care: Express Care Visit Vital Signs Vital signs: Vital Signs Temperature 97.8 F 12/30/24 17:00 Pulse Rate 71 12/30/24 17:00 Respiratory Rate 14 12/30/24 17:00 Blood Pressure 112/59 L 12/30/24 17:00 Pulse Oximetry 98 12/30/24 17:00 Oxygen Delivery Room Air 12/30/24 17:00 Temperature 97.8 F 12/30/24 17:00 Pulse Rate 71 12/30/24 17:00 Respiratory Rate 14 12/30/24 17:00 Blood Pressure 112/59 L 12/30/24 17:00 Pulse Oximetry 98 12/30/24 17:00 Oxygen Delivery Room Air 12/30/24 17:00 MDM - URI/Sore Throat MDM Narrative Medical decision making narrative: Rapid COVID and flu were negative. Is likely viral upper respiratory infection. Will prescribe benzonatate tablets as needed for cough. Discussed supportive therapy. Discussed physical exam findings. Advised supportive measures and signs/symptoms to go to the ER. Pt is appropriate for outpt treatment and f/u. Differential Diagnosis Differential diagnosis: Likely upper respiratory infection, viral infection, bronchitis and pharyngitis Lab Data Attestation: I reviewed the patient's lab results. Labs: Lab Results 12/30/24 Range/Units 16:59 POC Influenza A Ag Negative (Negative) POC Influenza B Ag Negative (Negative) POC SARS CoV-2 Ag Negative (Negative) Discharge Plan Discharge Clinical Impression: Upper respiratory infection Qualifiers: URI type: unspecified viral URI Qualified Code(s): J06.9 - Acute upper respiratory infection, unspecified Patient Disposition: Home Condition: Stable Instructions: Antibiotic Form, Upper Respiratory Infection (ED) Additional Instructions: Your rapid COVID and flu were negative today. Viral illness may last between 7- 10 days; antibiotics do not cure viral illness and are NOT recommended at this time. Take benzonatate tablets as directed for cough. May supplement your immune system with B vitamins, vitamin-D, vitamin-C, and zinc. Also, recommend symptomatic treatment includes: rest, fluids, and increase humidity of the air at home. Tylenol ibuprofen as needed for pain or fevers. You may take ibuprofen 600 mg to 800 mg every 6-8 hours. Do not exceed more than 800 mg of ibuprofen per dose. Do not exceed more than 3200 mg ibuprofen in a day. You may take up to 1000 mg Tylenol every 6-8 hours. Do not exceed 1000 mg per dose, do exceed more than 4000 mg of Tylenol in a day. Please schedule a follow-up visit with your personal physician for further evaluation and treatment within 5-7 days. Developed chest pain, difficulty breathing, weakness, confusion, vomiting, uncontrolled fevers, or any serious concerns please go to the ER immediately. Patient Language: Luxembourger Prescriptions: New benzonatate 200 mg capsule 200 mg PO TID PRN (Reason: cough) Qty: 20 0RF No Action famotidine 40 mg tablet 40 mg PO DAILY Qty: 90 3RF bupropion HCl [Wellbutrin XL] 150 mg tablet extended release 24 hr 150 mg PO QAM Qty: 90 0RF acetaminophen [Arthritis Pain Relief (acetam)] 650 mg tablet extended release 1,300 mg PO DAILY aspirin [Children's Aspirin] 81 mg Tablet,Chewable 81 mg PO DAILY@0800 30 Days Qty: 30 0RF Patient Comments: Pt to verify w DrJames Probiotic 3 billion cell capsule 3,000 mmu cells PO DAILY Rx Instructions: administer with a meal magnesium oxide 400 mg magnesium capsule 400 mg PO DAILY potassium 99 mg tablet 1 mg PO DAILY albuterol sulfate 90 mcg/actuation HFA aerosol inhaler See Rx Instructions .ROUTE .COMPLEX Qty: 8.5 3RF Dose Instruction: INHALE 1 PUFF BY MOUTH EVERY 4 HOURS NEEDED FOR SHORTNESS OF BREATH OR WHEEZING Rx Instructions: INHALE 1 PUFF BY MOUTH EVERY 4 HOURS NEEDED FOR SHORTNESS OF BREATH OR WHEEZING fluticasone propionate 50 mcg/actuation spray,suspension 2 spray intranasal DAILY Qty: 16 3RF Rx Instructions: administer into each nostril pantoprazole 40 mg tablet,delayed release (DR/EC) 40 mg PO QAM Qty: 90 3RF sertraline 100 mg tablet 150 mg PO DAILY Qty: 135 3RF atorvastatin [Lipitor] 40 mg tablet 40 mg PO DAILY Qty: 90 3RF montelukast [Singulair] 10 mg tablet 10 mg PO DAILY Qty: 90 2RF Ozempic 0.25 mg or 0.5 mg (2 mg/3 mL) pen injector 0.5 mg subcut WEEKLY Qty: 3 0RF Rx Instructions: for 4 weeks Follow-up/Referrals: Deirdre Morelos APRN [Primary Care Provider, Family Practice] Time of Disposition: 17:34
== END 2024-12-30 17:35 | disposition home or self-care (01) ==
PROVIDERS: PCP Nurse Practitioner Adult Health
DX: J06.9 Acute upper respiratory infection, unspecified (principal); Z20.822 Contact with and (suspected) exposure to COVID-19; Z87.891 Personal history of nicotine dependence; E78.5 Hyperlipidemia, unspecified; R73.03 Prediabetes; Z86.73 Personal history of transient ischemic attack (TIA), and cerebral infarction without residual deficits; F41.9 Anxiety disorder, unspecified; F32.A Depression, unspecified
CPT/HCPCS: 87426; 87804; 99213; G0463